=== PATIENT | female | born 1965 | race Caucasian/White ===

== ENCOUNTER 2017-12-26 14:22 | Outpatient (CLI) | payer OTHER, SELFPAY ==
[2017-12-26 15:03] LABS: Abs Immature Grans 0.02 k/cumm (0.0-0.09); Absolute Basophil Count 0.02 k/cumm (0.0-0.2); Absolute Eosinophil Count 0.03 k/cumm (0.0-0.7); Absolute Lymphocyte Count 1.64 k/cumm (1.2-3.4); Absolute Monocyte Count 0.61 k/cumm (0.11-0.7); Absolute Neutrophil Count 5.55 k/cumm (1.2-6.7); Basophils % 0.3; Eosinophils % 0.4; HCT 38.3 % (36.0-46.0); HGB 12.8 g/dL (12.0-15.5); Immature Grans % 0.3; Lymphocytes % 20.8; Mean Corp. HGB Concentration 33.4 g/dL (32.0-36.0); Mean Corpuscular Hemoglobin 30.4 pg (27.0-33.0); Mean Platelet Volume 9.9 fL (8.0-11.0); Monocytes % 7.8; Neutrophils % 70.4; Platelet Count 260 x1000/uL (130-400); RBC 4.21 m/cumm (4.00-5.20); White Blood Cell Count 7.87 k/cumm (4.4-10.8)
[2017-12-26 16:01] LABS: Anion Gap 10.7 mmol/L (3-11); BUN 24 mg/dL (7-18); CO2 24.3 mmol/L (21.0-32.0); CREATININE 1.16 mg/dL (0.55-1.02); Chloride 105 mmol/L (98-107); Estimated GFR 49.25 (mL/min/1.73m2); FREE T4 0.89 ng/dL (0.76-1.46); Glucose 99 mg/dL (70-100); Magnesium 2.3 mg/dL (1.8-2.4); PHOSPHORUS 3.5 mg/dL (2.6-4.7); Potassium 4.3 mmol/L (3.5-5.1); Sodium 140 mmol/L (136-145); TSH 0.53 uIU/mL (0.358-3.74)
[2017-12-26 21:23] LABS: Osmolality, Urine 961 mos/kg (150-1150)
[2017-12-27 16:07] LABS: Adrenocorticotropic Hormone, P <5.0 pg/mL
[2017-12-28 14:33] LABS: Renin Activity, Plasma 4.6 ng/mL/h
== END 2017-12-26 14:42 ==
PROVIDERS: PCP Student in an Organized Health Care Education/Training Program; Visit Provider Internal Medicine Endocrinology, Diabetes & Metabolism
DX: I10 Essential (primary) hypertension (principal); E27.1 Primary adrenocortical insufficiency; E03.9 Hypothyroidism, unspecified
CPT/HCPCS: 36415; 80048; 83935; 82024; 83735; 84100; 84244; 84439; 84443; 85025

== ENCOUNTER 2018-01-28 10:53 | Outpatient (CLI) | payer OTHER, SELFPAY ==
--- NOTE | 2018-01-28 10:50 | DI.RAD_ITS ---
SYMPTOMS/DIAGNOSIS: LEFT FOOT PAIN LEFT FOOT: Three views. No priors. No acute fracture, dislocation, lytic or sclerotic lesion is seen. The joint spaces are well maintained. There is a tiny spur at the plantar surface of the calcaneus. The soft tissues are unremarkable. IMPRESSION: Small calcaneal spur.
== END 2018-01-28 11:13 ==
PROVIDERS: PCP Student in an Organized Health Care Education/Training Program; Visit Provider Physician Assistant
DX: M79.672 Pain in left foot (principal); M77.32 Calcaneal spur, left foot
CPT/HCPCS: 73630

== ENCOUNTER 2018-03-19 01:43 | Outpatient (CLI) | payer OTHER, SELFPAY ==
--- NOTE | 2018-03-19 14:15 | SATEXT_ITS ---
Assessment: Ms. Broussard presents for nutritional counseling for gluten intolerance. She also complains of bloating and constipation. She reports that her health care provider recommended increased fiber. She reports that she has been eating gluten free, however she also eats many chips and a fair amount of candy. She drinks up to 48 oz. daily of Mountain Dew. Nutritional Diagnosis: Altered gastrointestinal function Intervention: We reviewed gluten free nutrition therapy. We also reviewed guidelines for irritable bowel nutrition therapy and she came up with an action plan to reduce her Mountain Dew intake. Provided written materials regarding a well balanced eating plan for her with meal planning suggestions. Monitoring and Evaluation: Ms. Broussard will self monitor her progress and evaluate her nutrition care plan on going and adjust as needed. She requested that we follow up initially by email or phone to see where she is at in terms of progress. We will determine her future follow up needs at that time. Total time spent face to face: 40 minutes Thank you for the referral.
== END 2018-03-19 02:03 ==
PROVIDERS: PCP Student in an Organized Health Care Education/Training Program; Visit Provider Dietitian, Registered
DX: K90.41 Non-celiac gluten sensitivity (principal); K21.9 Gastro-esophageal reflux disease without esophagitis; Z71.3 Dietary counseling and surveillance
CPT/HCPCS: 97802

== ENCOUNTER 2018-03-26 08:01 | Outpatient (CLI) | payer OTHER, SELFPAY ==
[2018-03-26 08:34] LABS: Abs Immature Grans 0.01 k/cumm (0.0-0.09); Absolute Basophil Count 0.03 k/cumm (0.0-0.2); Absolute Eosinophil Count 0.12 k/cumm (0.0-0.7); Absolute Lymphocyte Count 2.15 k/cumm (1.2-3.4); Absolute Monocyte Count 0.75 k/cumm (0.11-0.7); Absolute Neutrophil Count 4.21 k/cumm (1.2-6.7); Basophils % 0.4; Eosinophils % 1.7; HCT 39.3 % (36.0-46.0); HGB 13.2 g/dL (12.0-15.5); Immature Grans % 0.1; Lymphocytes % 29.6; Mean Corp. HGB Concentration 33.6 g/dL (32.0-36.0); Mean Corpuscular Hemoglobin 30.6 pg (27.0-33.0); Mean Corpuscular Volume 91.2 fL (80-95); Mean Platelet Volume 9.5 fL (8.0-11.0); Monocytes % 10.3; Neutrophils % 57.9; Platelet Count 252 x1000/uL (130-400); RBC 4.31 m/cumm (4.00-5.20); White Blood Cell Count 7.27 k/cumm (4.4-10.8)
[2018-03-26 10:17] LABS: Anion Gap 10.9 mmol/L (3-11); BUN 19 mg/dL (7-18); CO2 25.1 mmol/L (21.0-32.0); CREATININE 1.05 mg/dL (0.55-1.02); Calcium 8.9 mg/dL (8.5-10.1); Chloride 106 mmol/L (98-107); Estimated GFR 55.25 (mL/min/1.73m2); FREE T4 0.98 ng/dL (0.76-1.46); Glucose 81 mg/dL (70-100); Magnesium 1.5 mg/dL (1.8-2.4); PHOSPHORUS 3.3 mg/dL (2.6-4.7); Potassium 3.8 mmol/L (3.5-5.1); Sodium 142 mmol/L (136-145)
[2018-03-26 21:54] LABS: Osmolality, Urine 727 mos/kg (150-1150)
[2018-03-27 16:23] LABS: Adrenocorticotropic Hormone, P <5.0 pg/mL
[2018-03-28 10:53] LABS: Renin Activity, Plasma 6.5 ng/mL/h
== END 2018-03-26 08:21 ==
PROVIDERS: PCP Student in an Organized Health Care Education/Training Program; Visit Provider Internal Medicine Endocrinology, Diabetes & Metabolism
DX: E27.1 Primary adrenocortical insufficiency (principal); E03.9 Hypothyroidism, unspecified
CPT/HCPCS: 36415; 80048; 83935; 82024; 83735; 84100; 84244; 84439; 84443; 85025

== ENCOUNTER 2018-03-31 15:28 | Outpatient (REF) | payer OTHER, SELFPAY | END 2018-03-31 15:48 | LOC: LBN 15:28 | PROVIDERS: PCP Student in an Organized Health Care Education/Training Program; Visit Provider Student in an Organized Health Care Education/Training Program | DX: N39.0 Urinary tract infection, site not specified (principal) | CPT/HCPCS: 87077; 87086; 87186 ==

== ENCOUNTER 2018-04-03 14:16 | Outpatient (CLI) | payer OTHER, SELFPAY ==
[2018-04-03 15:27] LABS: ESR 17 MM/HR (0-30)
[2018-04-03 15:49] LABS: ALT 29 U/L (12-78); AST 15 U/L (15-37); Albumin 3.8 g/dL (3.4-5.0); Alkaline Phosphatase 97 U/L (46-116); Bilirubin, Direct 0.06 mg/dL (0.00-0.20); Bilirubin, Total 0.2 mg/dL (0.2-1.0); Total Protein 7.1 g/dL (6.4-8.2)
== END 2018-04-03 14:36 ==
PROVIDERS: PCP Student in an Organized Health Care Education/Training Program; Visit Provider Internal Medicine Endocrinology, Diabetes & Metabolism
DX: R53.83 Other fatigue (principal)
CPT/HCPCS: 36415; 80076; 85652; 86140

== ENCOUNTER 2018-08-07 01:27 | Outpatient (CLI) | payer OTHER, SELFPAY ==
--- NOTE | 2018-08-07 15:14 | DI.DEXA_ITS ---
SYMPTOM/DIAGNOSIS: H/O STEROID THERAPY, Z92.241, ADDISONS DISEASE DEXA SCAN: The LAST image shows no evidence of compression fractures. The bone mineral density measurements correspond to a total T score of -0.2, in the normal range. This is not significantly changed from 2017. The bone mineral density measurements of the left hip correspond to a total T score of -0.6 and a femoral neck T score of -1.7. This is a mild but not statistically significant change from 2017. The bone mineral density measurements of the left forearm correspond to a T score of the distal third of 2.0, in the normal range, also not significantly changed. IMPRESSION: Stable normal bone mineral density of the lumbar spine and left forearm. Stable osteopenia of the left hip.
== END 2018-08-07 01:47 ==
PROVIDERS: PCP Student in an Organized Health Care Education/Training Program; Visit Provider Internal Medicine Rheumatology
DX: M85.88 Other specified disorders of bone density and structure, other site (principal); D51.0 Vitamin B12 deficiency anemia due to intrinsic factor deficiency; Z92.241 Personal history of systemic steroid therapy
CPT/HCPCS: 77080

== ENCOUNTER 2018-08-13 00:52 | Outpatient (CLI) | payer OTHER, SELFPAY ==
--- NOTE | 2018-08-13 15:36 | DI.MAMMO_ITS ---
SYMPTOM/DIAGNOSIS: SCREENING MAMMOGRAMS: Mammograms were interpreted according to the usual protocol including computer analysis with CAD system, tomosynthesis and C view imaging. The breast tissue is heterogeneously radiodense which somewhat lowers the sensitivity of the study. There is no dominant mass. There are no suspicious calcifications. When compared with previous images, again noted are the biopsy markers in the lateral portion of the left breast. SUMMARY: No evidence of malignancy, category 2. Yearly screening mammography is recommended. Breast density, Category C. MQSA ASSESSMENT OF FINDINGS: Negative with benign findings. Category 2. Patient will receive a letter notifying them of these results. Bi-RADS category C. The breasts are heterogeneously dense, which may obscure small masses.
== END 2018-08-13 01:12 ==
PROVIDERS: PCP Student in an Organized Health Care Education/Training Program; Visit Provider Student in an Organized Health Care Education/Training Program
DX: Z12.31 Encounter for screening mammogram for malignant neoplasm of breast (principal)
CPT/HCPCS: 77063; 77067

== ENCOUNTER 2018-08-23 09:16 | Outpatient (CLI) | payer OTHER, SELFPAY ==
[2018-08-23 10:37] LABS: ESR 18 MM/HR (0-30)
[2018-08-23 10:56] LABS: ALT 46 U/L (12-78); AST 27 U/L (15-37); Albumin 3.8 g/dL (3.4-5.0); Alkaline Phosphatase 86 U/L (46-116); Anion Gap 11.7 mmol/L (3-11); BUN 16 mg/dL (7-18); Bilirubin, Total 0.4 mg/dL (0.2-1.0); C-Reactive Protein 0.23 mg/dL (0.0-0.3); CO2 25.3 mmol/L (21.0-32.0); CREATININE 1.01 mg/dL (0.55-1.02); Calcium 9.1 mg/dL (8.5-10.1); Chloride 106 mmol/L (98-107); Estimated GFR 57.56 (mL/min/1.73m2); FREE T4 1.16 ng/dL (0.76-1.46); Glucose 92 mg/dL (70-100); PHOSPHORUS 3.2 mg/dL (2.6-4.7); Potassium 3.7 mmol/L (3.5-5.1); Sodium 143 mmol/L (136-145); TSH 1.78 uIU/mL (0.358-3.74); Total Protein 6.9 g/dL (6.4-8.2)
[2018-08-26 13:58] LABS: Adrenocorticotropic Hormone, P <5.0 pg/mL
[2018-08-27 12:41] LABS: Renin Activity, Plasma 6.6 ng/mL/h
== END 2018-08-23 09:36 ==
PROVIDERS: PCP Student in an Organized Health Care Education/Training Program; Visit Provider Internal Medicine Endocrinology, Diabetes & Metabolism
DX: E27.1 Primary adrenocortical insufficiency (principal); R53.83 Other fatigue
CPT/HCPCS: 36415; 80048; 80076; 85652; 82024; 83735; 84100; 84244; 84439; 84443; 86140

== ENCOUNTER 2018-12-01 00:40 | Outpatient (CLI) | payer OTHER, SELFPAY ==
--- NOTE | 2018-12-01 13:41 | DI.RAD_ITS ---
SYMPTOMS/DIAGNOSIS: LEFT KNEE PAIN, M25.562; RIGHT KNEE PAIN, M25.561 LEFT KNEE: The bony structures are normally mineralized, the joint spaces intact. No soft tissue abnormality is apparent. SUMMARY: The study is within normal limits. RIGHT KNEE: There may be minimal narrowing of the medial tibiofemoral joint space. The bony structures are normally mineralized. There is no evidence of a fracture, dislocation or joint effusion. SUMMARY: Mild DJD is evident.
--- NOTE | 2018-12-01 14:23 | DI.MRI_ITS ---
SYMPTOMS/DIAGNOSIS: PAIN IN BILATERAL HIPS, M25.551, M25.552, ON PREDNISONE SINCE 2015 DUE TO ADRENAL DISEASE, PAIN WORSE, CONCERN FOR AVASCULAR NECROSIS BILATERAL HIP MRI: T1 axial bilateral and T2 axial fat-sat bilateral, T1 coronal bilateral and T1 coronal STIR bilateral and T2 sagittal fat-sat right up and proton density coronal fat-sat right hip and T2 sagittal fat-sat left hip and proton density coronal fat-sat left hip pulse sequences were performed. RIGHT HIP: There is no definite labral tear. There is very mild chondromalacia and periarticular osteophyte formation about the hip joint. There is no significant effusion. The hip joint is normally aligned. The femoral head articular contour is maintained and the femoral head is of normal signal. Partially included sacroiliac joint appears patent as seen on the present study. Lumbar spondylosis is partially visualized. A tiny cystic region in the anterior superior margin of the joint could represent a paralabral cyst or degenerative subchondral cyst in the acetabulum. The muscles are unremarkable. The patient is status post hysterectomy. There is mild hamstring tendinopathy with a tiny partial tear at its insertion. The flexor tendons are unremarkable. The adductors are intact with no evidence of a tear. The rotators are well maintained with no tear. SUMMARY: Degenerative changes as described above including very mild degenerative changes at the hip. A tiny paralabral cyst versus degenerative subchondral cyst is noted in the acetabulum. If an acetabular labral tear is of clinical concern, an MR arthrogram could be obtained. Note is also made of mild hamstring tendinopathy with a partial tiny tear. LEFT HIP: There is no definite tear involving the acetabular labrum. There is very mild chondromalacia and periarticular osteophyte formation about the hip joint. There is no significant joint effusion. The hip joint is normally aligned. The femoral head articular contour is maintained and femoral head is of normal signal. The partially included SI joint appears unremarkable. Note is made of lumbar spondylosis, only partially visualized. A tiny cystic focus at the anterior superior margin of the joint could represent a paralabral cyst or degenerative subchondral cyst in the acetabulum. The muscles are unremarkable. There is mild asymmetric edema in the soft tissues adjacent to the greater trochanter, suggesting mild bursitis. The patient is status post hysterectomy. There is mild hamstring tendinopathy with a small partial tear at its insertion. The flexor tendons are unremarkable. The adductors are unremarkable with no evidence of a tear. The rotators are unremarkable. No tear is seen. SUMMARY: Degenerative changes as described above including very mild degenerative changes of the hip. There is a tiny paralabral cyst versus degenerative subchondral cyst in the acetabulum. If acetabular labral tear is of concern, then an MR arthrogram could be obtained. Note is also made of mild hamstring tendinopathy with a small partial tear. There is mild asymmetric trochanteric bursitis.
--- NOTE | 2018-12-01 15:12 | DI.VRAD_ITS ---
EXAM: MR Right Lower Extremity Without Contrast. Hip EXAM DATE/TIME: 12/01/2018 2:28 PM CLINICAL HISTORY: 53 years old, female; Bilateral; Patient HX: Pain bilat. Hips, pain worse, concern for avn. ; Additional info: Patient on prednisone since 2015 due to adrenal disease. Patient had bilateral hips done. TECHNIQUE: Imaging protocol: MR of the Right lower extremity without intravenous contrast. Exam focused on the hip. COMPARISON: None provided. FINDINGS: Labrum: No definite tear of the acetabular labrum is evident. Cartilage: There is very mild chondromalacia and periarticular osteophyte formation about the hip joint. Fluid: There is no significant joint effusion. Bones/joints: The hip joint is normally aligned. The femoral head articular contour is maintained, and the femoral head is normal in signal. The partially included sacroiliac joint appears patent as seen. Lumbar lumbar spondylosis is partially visualized. A tiny cystic focus at the anterior superior margin of the joint could represent a paralabral cyst or degenerative subchondral cyst in the acetabulum (images 7:4, 6:16, 3:11). Muscles: Unremarkable. Reproductive: There has been hysterectomy. TENDONS: Extensors: There is mild hamstrings tendinopathy with a tiny partial tear at its insertion. Flexors: Unremarkable. No tear. Abductors: Unremarkable. No tear. Adductors: Unremarkable. No tear. Rotators: Unremarkable. No tear. IMPRESSION: 1. Degenerative changes as described, including very mild degenerative changes of the hip. 2. Tiny paralabral cyst versus degenerative subchondral cyst in the acetabulum. If acetabular labral tear is of clinical concern, consider MR arthrogram. 3. Mild hamstrings tendinopathy with a tiny partial tear. EXAM: MR Left Lower Extremity Without Contrast. Hip EXAM DATE/TIME: 12/01/2018 2:28 PM CLINICAL HISTORY: 53 years old, female; Bilateral; Patient HX: Pain bilat. Hips, pain worse, concern for avn. ; Additional info: Patient on prednisone since 2015 due to adrenal disease. Patient had bilateral hips done. TECHNIQUE: Imaging protocol: MR of the Left lower extremity without intravenous contrast. Exam focused on the hip. COMPARISON: None provided. FINDINGS: Labrum: No definite tear of the acetabular labrum is evident. Cartilage: There is very mild chondromalacia and periarticular osteophyte formation about the hip joint. Fluid: There is no significant joint effusion. Bones/joints: The hip joint is normally aligned. The femoral head articular contour is maintained, and the femoral head is normal in signal. The partially included sacroiliac joint appears patent as seen. Lumbar lumbar spondylosis is partially visualized. A tiny cystic focus at the anterior superior margin of the joint could represent a paralabral cyst or degenerative subchondral cyst in the acetabulum (images 9:9, 8:14, 3:11). Muscles: Unremarkable. Soft tissues: There is mild asymmetric edema in the soft tissues adjacent to the greater trochanter, suggesting mild bursitis. Reproductive: There has been hysterectomy. TENDONS: Extensors: There is mild hamstrings tendinopathy with a small partial tear at its insertion. Flexors: Unremarkable. No tear. Abductors: Unremarkable. No tear. Adductors: Unremarkable. No tear. Rotators: Unremarkable. No tear. IMPRESSION: 1. Degenerative changes as described, including very mild degenerative changes of the hip. 2. Tiny paralabral cyst versus degenerative subchondral cyst in the acetabulum. If acetabular labral tear is of clinical concern, consider MR arthrogram. 3. Mild hamstrings tendinopathy with a small partial tear. 4. Mild asymmetric trochanteric bursitis. Dictated and Authenticated by: Jamison Dennis MD. Ordering:MADELINE Lloyd MD
== END 2018-12-01 01:00 ==
PROVIDERS: PCP Student in an Organized Health Care Education/Training Program; Visit Provider Internal Medicine Rheumatology
DX: M25.551 Pain in right hip (principal); M25.552 Pain in left hip; M16.0 Bilateral primary osteoarthritis of hip; M76.891 Other specified enthesopathies of right lower limb, excluding foot; M70.62 Trochanteric bursitis, left hip; Z79.52 Long term (current) use of systemic steroids
CPT/HCPCS: 73562; 73721

== ENCOUNTER 2019-02-18 14:28 | Outpatient (CLI) | payer OTHER, SELFPAY ==
--- NOTE | 2019-02-18 14:48 | DI.RAD_ITS ---
EXAM: XR HIP AND PELVIS ADULT BL INDICATION: hip pain. COMPARISON: No exams were available for comparison TECHNIQUE: 2D digital imaging was performed. FINDINGS: Hip joint spaces are well maintained. There is no significant periarticular spurring. No soft tissu e calcifications are seen. IMPRESSION: Negative pelvis and bilateral hips.
== END 2019-02-18 14:48 ==
PROVIDERS: PCP Student in an Organized Health Care Education/Training Program; Visit Provider Student in an Organized Health Care Education/Training Program
DX: M25.551 Pain in right hip (principal); M25.552 Pain in left hip
CPT/HCPCS: 73521

== ENCOUNTER 2019-02-18 14:59 | Outpatient (CLI) | payer OTHER, SELFPAY ==
[2019-02-18 15:24] LABS: Abs Immature Grans 0.02 k/cumm (0.0-0.09); Absolute Basophil Count 0.02 k/cumm (0.0-0.2); Absolute Eosinophil Count 0.06 k/cumm (0.0-0.7); Absolute Lymphocyte Count 1.61 k/cumm (1.2-3.4); Absolute Neutrophil Count 5.08 k/cumm (1.2-6.7); Basophils % 0.3; Eosinophils % 0.8; HCT 39.5 % (36.0-46.0); HGB 12.9 g/dL (12.0-15.5); Immature Grans % 0.3; Lymphocytes % 21.8; Mean Corp. HGB Concentration 32.7 g/dL (32.0-36.0); Mean Corpuscular Volume 91.9 fL (80-95); Mean Platelet Volume 9.4 fL (8.0-11.0); Monocytes % 8.1; Neutrophils % 68.7; Platelet Count 322 x1000/uL (130-400); RBC Distribution Width 13.1 % (11.7-14.6); White Blood Cell Count 7.39 k/cumm (4.4-10.8)
[2019-02-18 16:09] LABS: ESR 14 mm/hr (0-30)
[2019-02-18 16:17] LABS: C-Reactive Protein 0.19 mg/dL (0.0-0.3)
[2019-02-20 10:21] LABS: Cyclic Citrullinated Peptide <2.5 U/mL (<5.0)
[2019-02-20 13:57] LABS: Lyme Ab w Rflx to Lyme Confirm Negative (Negative)
[2019-02-20 14:54] LABS: ANA Interpretation Negative (Negative)
== END 2019-02-18 15:19 ==
PROVIDERS: PCP Student in an Organized Health Care Education/Training Program; Visit Provider Student in an Organized Health Care Education/Training Program
DX: E27.1 Primary adrenocortical insufficiency (principal); E03.9 Hypothyroidism, unspecified; M25.551 Pain in right hip; M25.552 Pain in left hip
CPT/HCPCS: 36415; 85652; 86200; 85025; 86038; 86140; 86431; 86618

== ENCOUNTER 2019-03-07 09:09 | Outpatient (CLI) | payer OTHER, SELFPAY ==
[2019-03-07 10:44] LABS: Anion Gap 10.6 mmol/L (3-11); BUN 19 mg/dL (7-18); CO2 25.4 mmol/L (21.0-32.0); CREATININE 0.96 mg/dL (0.55-1.02); Chloride 106 mmol/L (98-107); FREE T4 0.99 ng/dL (0.76-1.46); Glucose 122 mg/dL (74-106); Magnesium 1.8 mg/dL (1.8-2.4); PHOSPHORUS 3.9 mg/dL (2.6-4.7); Potassium 3.8 mmol/L (3.5-5.1); Sodium 142 mmol/L (136-145); TSH 0.23 uIU/mL (0.36-3.74)
[2019-03-09 14:24] LABS: Adrenocorticotropic Hormone, P <5.0 pg/mL
[2019-03-10 11:50] LABS: Renin Activity, Plasma 4.5 ng/mL/h
== END 2019-03-07 09:29 ==
PROVIDERS: PCP Student in an Organized Health Care Education/Training Program; Visit Provider Internal Medicine Endocrinology, Diabetes & Metabolism
DX: E27.1 Primary adrenocortical insufficiency (principal); E03.9 Hypothyroidism, unspecified
CPT/HCPCS: 36415; 80048; 82024; 83735; 84100; 84244; 84439; 84443

== ENCOUNTER 2019-08-12 07:55 | Outpatient (CLI) | payer OTHER, SELFPAY ==
--- NOTE | 2019-08-12 15:15 | DI.RAD_ITS ---
EXAM: XR TIB/FIB LT CLINICAL HISTORY: r/o Fx. TECHNIQUE: 2D digital imaging was performed COMPARISON: No exams were available for comparison FINDINGS: BONES: No acute fracture is present. No bony destructive lesion is seen. Visualized portion of knee a nd ankle joints are unremarkable. SOFT TISSUE: Mild lateral soft tissue swelling. IMPRESSION: Unremarkable radiographs of the left tibia and fibula. DATA REPOSITORY: RADIATION DOSE DELIVERED:
== END 2019-08-12 08:15 ==
PROVIDERS: PCP Student in an Organized Health Care Education/Training Program; Visit Provider Student in an Organized Health Care Education/Training Program
DX: M79.662 Pain in left lower leg (principal); S89.92XA Unspecified injury of left lower leg, initial encounter; M79.89 Other specified soft tissue disorders
CPT/HCPCS: 73590

== ENCOUNTER 2019-08-26 08:36 | Day surgery (SDC) | payer OTHER, SELFPAY ==
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
--- NOTE | 2019-08-26 06:34 | W.PM.DSUDISC ---
Discharge Plan Disposition Patient Disposition: HOME Condition: Stable Discharge Details Reason For Visit: LLE hematoma Attending Provider: Stefany Loving Primary Care Provider: Mercedes Espinoza Home Meds and New Rx's Prescriptions: New (DME) Kerlix 4 1/2 X 147 bandage See Rx Instructions .ROUTE .MEDSUPPLY Qty: 4 RF: 0 Continued cetirizine [Zyrtec] 10 mg tablet 10 mg PO DAILY Qty: 90 RF: 3 escitalopram oxalate 10 mg tablet 10 mg PO DAILY Qty: 90 RF: 0 fluticasone propionate 50 mcg/actuation spray,suspension 2 spray REGINE BID Qty: 16 RF: 0 fludrocortisone 0.1 mg tablet 0.1 mg PO DAILY RF: 0 magnesium oxide 400 mg capsule 400 mg PO DAILY RF: 0 gabapentin 100 mg capsule 200 mg PO BID Qty: 360 RF: 1 multivitamin 1 EACH tablet 1 tab PO DAILY RF: 0 cholecalciferol (vitamin D3) [Vitamin D3] 1,000 UNIT capsule 1,000 unit PO DAILY RF: 0 Solu-Cortef Act-O-Vial (PF) 100 MG/2 ML recon soln 100 mg IJ PRN RF: 0 prednisone 5 mg tablet 6 mg PO DIRECTED RF: 0 pantoprazole 20 mg tablet,delayed release (DR/EC) 20 mg PO DAILY Qty: 90 RF: 3 albuterol sulfate [ProAir HFA] 90 mcg/actuation HFA aerosol inhaler 2 puff Inhalation Q4H PRN Qty: 3 RF: 3 fluticasone propion-salmeterol [Advair Diskus] 500-50 mcg/dose blister with device 1 inh Inhalation BID Qty: 3 RF: 3 levothyroxine 75 mcg/mL solution 75 mcg PO DAILY RF: 0 cyanocobalamin (vitamin B-12) [Vitamin B-12] 1,000 mcg tablet extended release 1,000 mcg PO DAILY RF: 0 Discharge Instructions Additional Instructions: Activity at Home after surgery: 1. Make sure you walk outside at least 4 times per day 2. You should be able to climb a flight of stairs 3. No driving while in pain or taking pain medications 4. No strenuous activity or heavy lifting for 2 weeks Diet, Nutrition, & wound healin. Avoid alcohol until after you are recovered from your surgery 2. Make sure to eat plenty of lean protein (meat, fish, eggs, cottage cheese, beans) 3. Eat a variety of fruits and vegetables. Eat plenty of high fiber foods to avoid constipation. 4. Drink plenty of liquids to stay hydrated and avoid constipation Pain Medications: 1. Alternate Tylenol 650 mg and Ibuprofen 600 mg every 3 hours 2. If a narcotic has been prescribed take as directed only for breakthrough pain For Constipation: 1. Take Milk of Magnesia or MiraLax as needed for constipation Other: 1. You may shower daily. Do not scrub the incisions 2. Do not soak the incisions for 1 week 3. You may alternate ice and heat as needed for pain and swelling Wound Care: 1. Keep the incisions clean and dry 2. Daily dressing changes. Remove dressing prior to your shower. Shower and pat dry. Apply ABD dressing and Kerlix. Secure with CHERYL wrap. Please call our office if you develop: 1. Fevers >101.5 2. Nausea or Vomiting 3. Worsening pain 4. Redness and thick discharge from the wounds If after hours please call the Hospital at and ask to speak to the on-call surgeon Referrals: Stefany Loving MD [ [facility]FF [facility]YSICIAN] - 09/01/19 Activity:: Activity as Tolerated Remove Dressings/Wound Care:: 24 hours Shower/Bathe:: 24 hours Diet:: As Tolerated Discharge Orders Discharge Orders: Discharge Order (Routine); Ordered 08/26/19 Ordered By: Stefany Loving
[2019-08-26] MEDS: Lactated Ringers 1,000 ML 80 ML IV (09:15)
[2019-08-26] MEDS: ceFAZolin 2 GM/50 ML BAG IVPB (10:18)
[2019-08-26] MEDS: Lidocaine 1% Multi-Dose 50 ML VIAL (10:34)
== END 2019-08-26 11:34 | disposition home or self-care (01) ==
PROVIDERS: PCP Student in an Organized Health Care Education/Training Program; Visit Provider Surgery
PROC: (CPT 27603; principal; 2019-08-26 09:30)
DX: S80.12XA Contusion of left lower leg, initial encounter (principal); V86.99XA Unspecified occupant of other special all-terrain or other off-road motor vehicle injured in nontraffic accident, initial encounter; Z98.890 Other specified postprocedural states
CPT/HCPCS: 27603; J0690

== ENCOUNTER 2019-09-07 01:27 | Outpatient (CLI) | payer OTHER, SELFPAY ==
[2019-09-07 10:59] LABS: Anion Gap 7.9 mmol/L (3-11); BUN 12 mg/dL (7-18); CO2 29.1 mmol/L (21.0-32.0); CREATININE 0.99 mg/dL (0.55-1.02); Calcium 9.6 mg/dL (8.5-10.1); Chloride 104 mmol/L (98-107); Estimated GFR 58.67 (mL/min/1.73m2); FREE T4 1.21 ng/dL (0.76-1.46); Glucose 112 mg/dL (74-106); Potassium 3.9 mmol/L (3.5-5.1); Sodium 141 mmol/L (136-145); TSH 1.94 uIU/mL (0.36-3.74)
[2019-09-08 17:43] LABS: Adrenocorticotropic Hormone, P <5.0 pg/mL
[2019-09-10 17:50] LABS: Renin Activity, Plasma 4.2 ng/mL/h
== END 2019-09-07 01:47 ==
PROVIDERS: PCP Student in an Organized Health Care Education/Training Program; Visit Provider Internal Medicine Endocrinology, Diabetes & Metabolism
DX: E27.1 Primary adrenocortical insufficiency (principal); E03.9 Hypothyroidism, unspecified
CPT/HCPCS: 36415; 80048; 82024; 83735; 84100; 84244; 84439; 84443

== ENCOUNTER 2019-10-27 01:31 | Outpatient (CLI) | payer OTHER, SELFPAY ==
--- NOTE | 2019-10-27 | DI.DEXA_ITS ---
EXAM: XR DEXA BONE DENSITY W/WO LAST CLINICAL HISTORY: CUSTODIAL USE OF STEROID,Z79.52 TECHNIQUE: COMPARISON: 08/07/2018. FINDINGS: Lateral Spine Image: Unremarkable. No compression deformities identified. Left hip: Total T-Score: -0.9. Compared with -0.6. Total Z-Score: -0.3 T- and Z-scores: Within normal limits. Lumbar Spine: Total T-Score: -0.5. Compared with -0.2. Total Z-Score: 0.4. T- and Z-scores: Within normal limits. IMPRESSION: No evidence of osteoporosis.
== END 2019-10-27 01:51 ==
PROVIDERS: PCP Student in an Organized Health Care Education/Training Program; Visit Provider Internal Medicine Endocrinology, Diabetes & Metabolism
DX: Z79.52 Long term (current) use of systemic steroids (principal)
CPT/HCPCS: 77080

== ENCOUNTER 2020-03-16 15:52 | Outpatient (REF) | payer OTHER, SELFPAY | END 2020-03-16 16:12 | LOC: LBO 15:52 | PROVIDERS: PCP Student in an Organized Health Care Education/Training Program; Visit Provider Internal Medicine | DX: R30.0 Dysuria (principal) | CPT/HCPCS: 87077; 87086; 87186 ==

== ENCOUNTER 2020-03-23 04:22 | Outpatient (CLI) | payer OTHER, SELFPAY ==
[2020-03-23 09:05] LABS: Anion Gap 9.3 mmol/L (3-11); BUN 18 mg/dL (7-18); CO2 28.7 mmol/L (21.0-32.0); CREATININE 1.17 mg/dL (0.55-1.02); Calcium 8.9 mg/dL (8.5-10.1); Chloride 102 mmol/L (98-107); Estimated GFR 48.39 (mL/min/1.73m2); FREE T4 0.92 ng/dL (0.76-1.46); Glucose 93 mg/dL (74-106); Magnesium 1.8 mg/dL (1.8-2.4); Sodium 140 mmol/L (136-145); TSH 2.03 uIU/mL (0.36-3.74)
[2020-03-25 12:32] LABS: Adrenocorticotropic Hormone, P <5.0 pg/mL
[2020-03-27 11:35] LABS: Renin Activity, Plasma 7.1 ng/mL/h
== END 2020-03-23 04:42 ==
PROVIDERS: PCP Student in an Organized Health Care Education/Training Program; Visit Provider Internal Medicine Endocrinology, Diabetes & Metabolism
DX: E03.9 Hypothyroidism, unspecified (principal); E27.1 Primary adrenocortical insufficiency
CPT/HCPCS: 36415; 80048; 82024; 83735; 84100; 84244; 84439; 84443

== ENCOUNTER 2020-09-06 12:10 | Outpatient (CLI) | payer OTHER, SELFPAY ==
--- NOTE | 2020-09-06 15:45 | DI.RAD_ITS ---
Exam(s) XR HAND LT COMPLETE EXAM: XR HAND LT COMPLETE CLINICAL HISTORY: possible bone spur? r/o bony pathology. m79.642. TECHNIQUE: 2D digital imaging was performed. COMPARISON: No exams were available for comparison FINDINGS: Is no evidence of acute fracture or dislocation. No radiopaque foreign body. No osseous lesions. N o erosions. Bone density appears age appropriate. IMPRESSION: DATA REPOSITORY: RADIATION DOSE DELIVERED:
== END 2020-09-06 12:30 ==
PROVIDERS: PCP Student in an Organized Health Care Education/Training Program; Visit Provider Student in an Organized Health Care Education/Training Program
DX: S66.511A Strain of intrinsic muscle, fascia and tendon of left index finger at wrist and hand level, initial encounter (principal); X58.XXXA Exposure to other specified factors, initial encounter
CPT/HCPCS: 73130

== ENCOUNTER 2020-09-16 01:40 | Outpatient (CLI) | payer OTHER, SELFPAY ==
[2020-09-16 09:13] LABS: Anion Gap 11.3 mmol/L (3-11); BUN 16 mg/dL (7-18); CO2 27.7 mmol/L (21.0-32.0); CREATININE 1.1 mg/dL (0.55-1.02); Calcium 9.4 mg/dL (8.5-10.1); Chloride 105 mmol/L (98-107); Estimated GFR 51.76 (mL/min/1.73m2); Glucose 83 mg/dL (74-106); Magnesium 1.9 mg/dL (1.8-2.4); PHOSPHORUS 4.5 mg/dL (2.6-4.7); Potassium 4.7 mmol/L (3.5-5.1); Sodium 144 mmol/L (136-145); TSH 5.46 uIU/mL (0.36-3.74)
[2020-09-17 13:03] LABS: Adrenocorticotropic Hormone, P 17 pg/mL
== END 2020-09-16 01:41 | disposition home or self-care (01) ==
LOC: LBO 01:40
PROVIDERS: PCP Student in an Organized Health Care Education/Training Program; Visit Provider Internal Medicine Endocrinology, Diabetes & Metabolism
DX: E27.1 Primary adrenocortical insufficiency (principal); E03.9 Hypothyroidism, unspecified; R93.7 Abnormal findings on diagnostic imaging of other parts of musculoskeletal system
CPT/HCPCS: 36415; 80048; 80400; 82024; 83735; 84100; 84244; 84439; 84443

== ENCOUNTER 2020-09-29 01:31 | Outpatient (CLI) | payer OTHER, SELFPAY ==
--- NOTE | 2020-09-29 09:30 | DI.MAMMO_ITS ---
Exam(s) MAMMO SCREENING EXAM: MAMMO SCREENING CLINICAL HISTORY: screening,Z12.39. TECHNIQUE: Bilateral full field digital CC and MLO mammographic images were obtained with 3D tomosyn thesis and utilizing computer aided detection (CAD). COMPARISON: Prior mammograms dating back to 2010, the most recent being July 2018. FINDINGS: There are no CAD designations There are no new spiculated masses nor malignant appearing microcalcification groups. Two biopsy marker devices in left breast are again noted, the more anterior of the 2 again noted be w ithin a slightly lobulated nodule, unchanged from prior studies. Benign lymph node in the upper-oute r quadrant left breast is unchanged. Small nodule anteriorly in the right breast is unchanged from p rior studies. No malignant-appearing microcalcification groups in either breast. There is no significant architectural distortion nor skin thickening-retraction. IMPRESSION: Stable benign findings. No radiographic evidence of malignancy. BI-RADS Category 2 - Benign Findings Breast Density - Category C - Heterogeneously dense Breast density Category C or D implies that the patient has dense breast tissue. Dense breast tissue can make it harder to find cancer on a mammogram. Dense breast tissue is also associated with an incr eased risk of breast cancer. This information about the result of the mammogram report was provided to the patient to raise their awareness. Use this report when you speak with the patient about their risks for breast cancer, which includes their family history. At that time, you may recommend additional screening tests (Ultrasoun d or MRI) as these tests may add significant information. A negative radiographic report should not delay biopsy if a dominant or clinically suspicious mass is present. Up to ten percent of cancers are not identified on mammography. A negative report may reinforce clinical impression. Adenosis and dense breasts may obscure an underlying neoplasm. False positive reports average 6 to 10%. Patient will receive a letter notifying them of these results.
== END 2020-09-29 01:51 ==
PROVIDERS: PCP Student in an Organized Health Care Education/Training Program; Visit Provider Student in an Organized Health Care Education/Training Program
DX: Z12.31 Encounter for screening mammogram for malignant neoplasm of breast (principal)
CPT/HCPCS: 77063; 77067

== ENCOUNTER 2020-10-18 12:16 | Inpatient (IN) | payer OTHER, SELFPAY ==
[2020-10-18 12:33] VITALS: BP 129/69; PULSE 84; RESP 16; TEMP 36.8; O2SAT 96
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
[2020-10-18 13:14] LABS: Bilirubin Negative (Negative); Blood Negative (Negative); Clarity Clear (Clear); Glucose Negative (Negative); Ketones Negative (Negative); Leukocyte Esterase Negative (Negative); Nitrite Negative (Negative); Specific Gravity 1.025 (1.005-1.025); Urobilinogen 0.2 EU/dL (Up TO 0.2); pH 5.5 (5-8)
[2020-10-18 13:20] LABS: Abs Immature Grans 0.03 10^3/uL (0.0-0.06); Absolute Basophil Count 0.02 10^3/uL (0.0-0.2); Absolute Lymphocyte Count 1.37 10^3/uL (1.2-3.4); Absolute Monocyte Count 0.39 10^3/uL (0.1-0.8); Absolute Neutrophil Count 7.28 10^3/uL (1.2-6.7); Basophils % 0.2; HGB 13.4 g/dL (11.2-15.7); Immature Grans % 0.3; Lymphocytes % 15.1; MCH 29.8 pg (27.0-33.0); MCHC 32.7 % (32.0-36.0); MCV 91.3 fL (80-95); MPV 9.2 fL (8.0-11.0); Monocytes % 4.3; Neutrophils % 80.1; Nucleated RBC 0 %; Platelet Count 324 10^3/uL (130-400); RBC 4.49 10^6/uL (3.93-5.22); RDW 12.4 % (11.7-14.6); RDW-SD 41.1 fL; WBC 9.09 10^3/uL (4.4-10.8)
[2020-10-18 13:35] LABS: ALT 33 U/L (14-59); AST 23 U/L (15-37); Alkaline Phosphatase 96 U/L (46-116); Anion Gap 10.1 mmol/L (3-11); BUN 18 mg/dL (7-18); Bilirubin, Total 0.3 mg/dL (0.2-1.0); CO2 23.9 mmol/L (21.0-32.0); Calcium 9.1 mg/dL (8.5-10.1); Chloride 104 mmol/L (98-107); Estimated GFR 57.78 (mL/min/1.73m2); Glucose 106 mg/dL (74-106); Magnesium 2.2 mg/dL (1.8-2.4); Potassium 4.6 mmol/L (3.5-5.1); Sodium 138 mmol/L (136-145)
[2020-10-18 13:45] LABS: TSH (W/Ref FT4) 0.19 uIU/mL (0.36-3.74)
--- NOTE | 2020-10-18 13:54 | NUR.NOTE ---
Nursing Note: Endocrinology [place], [place]; Dr. Cantrell [phone].
[2020-10-18 14:06] LABS: FREE T4 1.03 ng/dL (0.76-1.46)
[2020-10-18] MEDS: Hydrocortisone SOD SUC. 100 MG VIAL IVP ×2 (14:18→19:47)
--- NOTE | 2020-10-18 15:00 | RT.EKG_ITS ---
APPROVED REPORT Exam: Resting ECG Reason for Exam: consider QT prolonged Patient Location: E HR:64 bpm ECG Measurements Heart Rate 64 AXIS TN 162 P 72 QRSd 94 QRS 72 QT 418 T 28 QTc 431 Conclusion Sinus rhythm...normal P axis, V-rate 60- 99 Probable left atrial enlargement...P >50mS, <-0.10mV V1
[2020-10-18] MEDS: Ondansetron 4 MG/2 ML VIAL IVP ×2 (15:19→22:28)
[2020-10-18 15:57] LABS: Source Nasal/Nares
[2020-10-18 16:08] VITALS: BP 142/78; PULSE 68; RESP 18; TEMP 36.4; O2SAT 97
[2020-10-18 16:22] VITALS: BP 138/70; PULSE 63; RESP 17; TEMP 36.3; O2SAT 99
[2020-10-18 18:04] LABS: COVID-19 PCR Negative (Negative)
[2020-10-18] MEDS: Budesonide/Formoterol 160/4.5 6 GM 60 PUFF INH IH (19:46)
[2020-10-18] MEDS: busPIRone 15 MG TAB PO (19:47)
[2020-10-18] MEDS: Gabapentin 100 MG CAP 200 MG PO (19:47)
[2020-10-18] MEDS: Normal Saline Flush 10 ML SYR IVP ×2 (19:48→22:29)
[2020-10-18 19:58] VITALS: BP 123/82; PULSE 63; RESP 16; TEMP 36.5; O2SAT 97
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
[2020-10-18 23:30] VITALS: BP 102/59; PULSE 60; RESP 18; TEMP 36; O2SAT 96
[2020-10-19] MEDS: Hydrocortisone SOD SUC. 100 MG VIAL IVP ×3 (01:33→14:20)
[2020-10-19] MEDS: Normal Saline Flush 10 ML SYR IVP ×2 (01:34→08:13)
[2020-10-19 04:09] VITALS: BP 102/59; PULSE 64; RESP 16; TEMP 36.5; O2SAT 97
[2020-10-19] MEDS: Omeprazole 20 MG CAPCR PO (06:49)
[2020-10-19] MEDS: Levothyroxine 88 MCG TAB PO (06:49)
[2020-10-19 07:14] LABS: Anion Gap 9.6 mmol/L (3-11); BUN 15 mg/dL (7-18); CO2 26.4 mmol/L (21.0-32.0); Calcium 9.4 mg/dL (8.5-10.1); Chloride 105 mmol/L (98-107); Estimated GFR 57.78 (mL/min/1.73m2); Glucose 111 mg/dL (74-106); Potassium 3.9 mmol/L (3.5-5.1); Sodium 141 mmol/L (136-145)
[2020-10-19 07:52] VITALS: BP 112/70; PULSE 70; RESP 14; TEMP 36.4; O2SAT 100
[2020-10-19] MEDS: Cetirizine 10 MG TAB PO (08:12)
[2020-10-19] MEDS: Fludrocortisone 0.1 MG TAB PO (08:12)
[2020-10-19] MEDS: Magnesium Oxide 400 MG TAB PO (08:12)
[2020-10-19] MEDS: busPIRone 15 MG TAB PO (08:13)
[2020-10-19] MEDS: Gabapentin 100 MG CAP 200 MG PO (08:13)
--- NOTE | 2020-10-19 10:19 | INITIAL_ITS ---
- If Service Date Differs Date of service: 10/19/20 Time of Service: 10:19 Care Management Initial Assess REASON FOR HOSPITALIZATION:: Faustina's Disease PAST MEDICAL HISTORY/PAST SURGICAL HISTORY:: Abdominal bloating. 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 09/22/19 F/U with Zion Manrique, f/u 6m. Asthma (06/09/12). B12 deficiency (09/22/13). Bilateral knee pain. Contusion. Swollen, tender, still hard @ landing location ... Depression (05/10/16). Depressive disorder (02/15/00). Endometriosis. Gastroesophageal reflux disease without esophagitis (12/14/14). Hip pain, bilateral. Seen by Rheum who ordered MRI (NEG for necrosis). Cystic findings and Hamstring inflamm/tear warrants review by PT/Ortho for etiology and possible non-invasive Tx plan. Hot flashes. Drenched, fatigued .. Hx menopause with hot flashes years ago. Unclear etiology (stress? faustina's dz?). Hypothyroidism. Goal set by [facility] for TSH to target at 1.52. [address] Dr. Mejia, now Dr. Cantrell [facility]. Hypothyroidism (acquired). Immunocompromised due to corticosteroids. Stayed out of work to minimize COVID19 exposure with FMLA support. Returning 09/15/19. Left foot pain. 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 Left leg injury. Hematoma per surgery evaluation. Hematoma I&D by surgery 08/26/19. Low back pain. Neuralgia and neuritis, unspecified. 02/03/18 Dr Apodaca. Marcaine injection. Neuropathy of left sural nerve. Osteopenia (~2016). repeat Dexa 07/28/18. Primary hypoadrenalism. RLS (restless legs syndrome) (05/10/16). Seasonal allergies (09/22/13). Strain of left index finger. Tremor. Trochanteric bursitis of both hips. Unspecified nontoxic nodular goiter. Vertigo. Biopsy of breast. LEFT. Endometrial Biopsy (05/19/10). History of bilateral ligation of fallopian tubes. SALPINGECTOMY; B/L with removal of the hydrosalpinx (08/24/15). Status post incision and drainage (~08/26/19). Left LE hematoma. Status post vaginal hysterectomy PREVIOUS FUNCTIONAL STATUS/SOCIAL/FAMILY SUPPORTS:: Ghada resides in [place] with her , Gerardo. She is independent at baseline, and fully employed at [employer]. 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 CURRENT FUNCTIONAL STATUS:: Ghada was sitting up in her bed, her at her bedside when CM met with her. She was pleasant in interaction and reported feeling much better. ADVANCE DIRECTIVES:: None on file at [facility]. Has patient been provided with info about the portal/API?: Yes Did the patient sign up for the portal?: Yes CODE STATUS:: Full Code INSURANCE COVERAGE / FINANCIAL ISSUES:: [facility] CURRENT HOME/COMMUNITY SERVICES/EQUIPMENT:: None currently. PRIMARY CARE PHYSICIAN:: Mercedes Akbar POTENTIAL DISCHARGE NEEDS:: Follow up appointment with PCP. PATIENT/FAMILY EDUCATION NEEDS:: Review discharge instructions, discuss Ask Me Three. ANTICIPATED BARRIERS TO DISCHARGE:: None identified. TRANSPORTATION:: Via private vehicle with her , Gerardo. PLAN:: Ghada continues to be closely monitored and treated. CM continues to follow. Anticipate she will return home when ready per MD, follow up with her PCP and plan of care as prescribed. She will transport via private vehicle her , Gerardo.
[2020-10-19] MEDS: Budesonide/Formoterol 160/4.5 6 GM 60 PUFF INH IH (10:34)
[2020-10-19 11:38] VITALS: BP 117/76; PULSE 70; RESP 17; TEMP 36.1; O2SAT 98
--- NOTE | 2020-10-19 15:09 | CHAPLAIN ---
Ghada was sitting up in bed when I visited. I introduced myself and explained my role. Ghada was pleasant but did not seem interested in further conversation.
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
[2020-10-19] MEDS: predniSONE 20 MG TAB PO (17:24)
== END 2020-10-19 17:59 | disposition home or self-care (01) | DRG 644 ==
LOC: ER 16:15 → MS 16:22
PROVIDERS: Admitting Provider Family Medicine; Emergency Provider Student in an Organized Health Care Education/Training Program; PCP Student in an Organized Health Care Education/Training Program; Visit Provider Family Medicine
DX: E27.1 Primary adrenocortical insufficiency (principal); D84.821 Immunodeficiency due to drugs; R53.83 Other fatigue; E03.9 Hypothyroidism, unspecified; J45.909 Unspecified asthma, uncomplicated; E53.8 Deficiency of other specified B group vitamins; F32.9 Major depressive disorder, single episode, unspecified; K21.9 Gastro-esophageal reflux disease without esophagitis; Z79.52 Long term (current) use of systemic steroids; M54.5 Low back pain; G25.81 Restless legs syndrome; M70.62 Trochanteric bursitis, left hip; M70.61 Trochanteric bursitis, right hip; Z20.822 Contact with and (suspected) exposure to COVID-19
CPT/HCPCS: 36415; 80048; 80053; 87635; 93005; 96374; 96375; 99285; 81003; 83735; 84439; 84443; 85025; 93010; 99222; 99239; J1720; J2405; J7512

== ENCOUNTER 2020-10-25 10:56 | Outpatient (CLI) | payer OTHER, SELFPAY ==
[2020-10-25 13:08] LABS: HCT 40.5 % (36.0-46.0); HGB 13.2 g/dL (11.2-15.7); MCH 29.8 pg (27.0-33.0); MCHC 32.6 % (32.0-36.0); MCV 91.4 fL (80-95); MPV 9.3 fL (8.0-11.0); Platelet Count 285 10^3/uL (130-400); RBC 4.43 10^6/uL (3.93-5.22); RDW 12.4 % (11.7-14.6); RDW-SD 41.2 fL; WBC 10.23 10^3/uL (4.4-10.8)
[2020-10-25 13:09] LABS: ESR 16 mm/hr (0-30)
[2020-10-25 13:12] LABS: Bilirubin Negative (Negative); Blood Negative (Negative); Clarity Clear (Clear); Glucose Negative (Negative); Ketones Negative (Negative); Leukocyte Esterase Negative (Negative); Nitrite Negative (Negative); Urobilinogen 0.2 EU/dL (Up TO 0.2); pH 5.5 (5-8)
[2020-10-25 14:35] LABS: ALT 27 U/L (14-59); AST 18 U/L (15-37); Albumin 3.9 g/dL (3.4-5.0); Alkaline Phosphatase 81 U/L (46-116); Anion Gap 13.5 mmol/L (3-11); BUN 29 mg/dL (7-18); Bilirubin, Total 0.3 mg/dL (0.2-1.0); CO2 23.5 mmol/L (21.0-32.0); CREATININE 1.3 mg/dL (0.55-1.02); Calcium 8.9 mg/dL (8.5-10.1); Chloride 101 mmol/L (98-107); Estimated GFR 42.68 (mL/min/1.73m2); Glucose 129 mg/dL (74-106); Potassium 4.4 mmol/L (3.5-5.1); Sodium 138 mmol/L (136-145); TSH 0.16 uIU/mL (0.36-3.74); Total Protein 7.3 g/dL (6.4-8.2)
[2020-10-25 14:53] LABS: FREE T4 0.89 ng/dL (0.76-1.46)
[2020-10-25 21:53] LABS: T3, Total 146 ng/dL (97-169)
[2020-10-26 16:26] LABS: CRP, High Sensitivity <0.34 mg/L (See Note)
== END 2020-10-25 10:57 | disposition home or self-care (01) ==
LOC: LBO 10:57
PROVIDERS: PCP Student in an Organized Health Care Education/Training Program; Visit Provider Internal Medicine Endocrinology, Diabetes & Metabolism
DX: E27.1 Primary adrenocortical insufficiency (principal); E03.9 Hypothyroidism, unspecified; R53.83 Other fatigue
CPT/HCPCS: 80053; 85027; 85652; 86141; 81003; 84439; 84443; 84480; 86140

== ENCOUNTER 2020-12-07 00:34 | Outpatient (CLI) | payer OTHER, SELFPAY ==
[2020-12-07 08:08] LABS: Anion Gap 7.5 mmol/L (3-11); BUN 22 mg/dL (7-18); CO2 30.5 mmol/L (21.0-32.0); Calcium 8.8 mg/dL (8.5-10.1); Calculated LDL 119 mg/dL (<100); Chloride 104 mmol/L (98-107); Cholesterol 210 mg/dL (<200); Estimated GFR 57.78 (mL/min/1.73m2); Glucose 86 mg/dL (74-106); HDL Cholesterol 69 mg/dL (40-60); Sodium 142 mmol/L (136-145); Triglyceride 113 mg/dL (<150)
[2020-12-07 08:18] LABS: FREE T4 0.86 ng/dL (0.76-1.46); TSH 1.46 uIU/mL (0.36-3.74)
[2020-12-08 00:51] LABS: Vitamin D 25 Total 52.2 ng/mL (30-100)
== END 2020-12-07 00:35 | disposition home or self-care (01) ==
LOC: LBO 00:34
PROVIDERS: PCP Student in an Organized Health Care Education/Training Program; Visit Provider Internal Medicine Endocrinology, Diabetes & Metabolism
DX: E03.9 Hypothyroidism, unspecified (principal); E55.9 Vitamin D deficiency, unspecified; D51.0 Vitamin B12 deficiency anemia due to intrinsic factor deficiency; Z13.220 Encounter for screening for lipoid disorders; N28.9 Disorder of kidney and ureter, unspecified
CPT/HCPCS: 36415; 80048; 80061; 82306; 84439; 84443

== ENCOUNTER 2020-12-31 11:24 | Outpatient (REF) | payer OTHER, SELFPAY ==
--- OUTSIDE RECORDS SUMMARY | 2020-12-31 11:28 | XMS_ITS | Encounter Summary ---
:1965 Author Care Team Providers Name Role Phone Dr. Mercedes Espinoza Primary Care Provider [phone] Mercedes Espinoza DO Primary Care Provider [phone] Dr. Mercedes Espinoza Referring Provider [phone] Reason for Visit Not feeling good, She has doubled sterio d dosing Sat-Mon. Assessment and Plan Assessment Note This E&M visit was carried through a HIPAA compliant Phone call with patient's prior verbal consent. Telehealth video and phone visits are approved under emergency ruling during this Covid-19 pandemic. Total visit time spent is 20 minutes and more than 50% of this visit was spent in counselling about conditions below. 1. [place]'s disease Now grossly stable. Does take occasional extra Glucocorticoid Complaint of fatigue, not explained by c linical exam and labs. Repeat studies had show nomral Chemistri es Na 144 (141,) K 4.5 ( 3.9) GLu 83 BUN 1 6 Creat 1.1 PRA Pending. ------ GIVe Boost e Prednisone 20 mg daily itw o days, then taper as in order. Talk iwth patient tomorrow if not syed r may need to go to ED. consider bried admit. ? prednisone 5 mg tablet Discussion Note: None recorded.Patient educational handouts: No information available. Plan of Care Patient Goals Satisfactory replacement with least possible steroid to lessen lo ng term complications. Treatment of short term exaserbations. Patient Instructions Adrenal short term 1) Prednisone 5 mg: a) FOUR (2) times two days b) THree (3) times two days c) Two tabs (2( for two days 2) then resume usual Plan Call Saturday. before Noon. Reminders Provider Appointments Return to on or around [facility]am[facility], Office 04/03/2021 MD-FACE Lab None ? ? recorded. Referral None ? ? recorded. Procedures None ? ? recorded. Surgeries None ? ? recorded. Imaging None ? ? recorded. Medications Name Start Date ? ? Advair Diskus 500 mcg-50 mcg/dose powder for inhalatio n ? Inhale 1 puff twice a day by inhalation route as dire cted. buspirone 15 mg tablet ? Take 1 tablet twice a day by oral route. cetirizine 10 mg tablet ? Take 1 tablet every day by oral route as directed. cyanocobalamin (vit B-12) 1,000 mcg tablet ? Take 1 tablet every day by oral route as directed. fludrocortisone 0.1 mg tablet ? TAKE 1 TABLET BY MOUTH EVERY DAY DIRECTED fluticasone propionate 50 mcg/actuation nasal spray,pelaez spension ? [place] 1 spray every day by intranasal route. gabapentin 100 mg capsule ? Take 2 capsules twice a day by oral route. levothyroxine 75 mcg tablet ? one tablet every ODD daily preferrably take with plain water at least four hours after last meal and at least one hour before any other beverage, food, pills or vitamin. (preferablly in AM) levothyroxine 88 mcg tablet ? one tablet every EVEN daily preferrably take with plain water at least four hours after last meal and at least one hour before any other beverage, food, pills or vitamin. (preferablly in AM) Lotemax 0.5 % eye drops,suspension ? INSTILL 1 DROP INTO AFFECTED EYE(S) BY OPHTHALMIC ROUTE 3 TIMES PER DAY. For autoimmune dry eye per eye doctor. magnesium oxide 400 mg (241.3 mg magnesium) tablet ? Take 1 tablet every day by oral route. multivitamin ? omeprazole 20 mg capsule,delayed release ? Take 1 capsule every day by oral route. prednisone 1 mg tablet ? Take two tabs in AM with a 2.5 mg to gi ve 4.5 mg Prednisone each morning; then one tablet at noon, and 1/2 tablet at 4 pm daily prednisone 2.5 mg tablet ? Take one tabs in AM with two 1 mg to gi ve 4.5 mg Prednisone each morning; [then one tablet of 1 mg at noon, and 1/2 tablet of 1 mg at 4 pm daily ] *may need extra for Stress dosing. prednisone 5 mg tablet ? Prednisone 5 mg: Six day coursa) FOUR ( 4) by mouth with food each morning times two daysb) THree (3) by mouth with food each morning times two daysc) Two tabs (2) by mouth with food each morning for two days2) then resume usual Plan ProAir HFA 90 mcg/actuation aerosol inhaler ? Inhale 2 puffs every 4 hours by inhalation route as n eeded. Solu-Cortef 100 mg solution for injection ? Inject 100 mg up to twice daily for mo derate symptoms of Adrenal Insufficiency. Note only short term. IF very sick must be seen in ED. Vitamin D3 25 mcg (1,000 unit) capsule ? Take 1 capsule every day by oral route as directed. Medications Administered None recorded. Vitals Height Weight 5 ft 6 in Results Lab Results None recorded. Allergies Code Code System Name Reaction Severity Onset Animal Dander ? ? ? 7101724 RxNorm Gluten ? ? ? Problems Name Status Onset Date Source ? Non-toxic Nodular Goiter Active 11/28/2016 ? Hypothyroidism Active 11/28/2016 ? 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 Cobalamin Deficiency Active 11/28/2016 ? Depressive Disorder Active 11/28/2016 ? Restless Legs Active 11/28/2016 ? Seasonal Allergy Active 11/28/2016 ? Asthma Active 11/28/2016 ? Gastroesophageal Reflux Disease Active 11/28/2016 ? Hydrosalpinx Active 11/28/2016 ? Endometritis Active 11/28/2016 ? Pain in Pelvis Active 11/28/2016 ? Abdominal Discomfort Active 11/28/2016 ? Gluten Sensitivity Active 11/28/2016 ? Bone Density below Reference Range Active 12/04/2016 ? Hip Pain Active 01/08/2018 ? Plantar Fasciitis Active 01/08/2018 ? Pain in Left Foot Active 01/08/2018 ? Long-term Current Use of Steroid Active 09/22/2019 ? Notes: lichen sclerosis Procedures Date Name Performed by ? ? Total Hysterectomy Information not avai lable ? Breast Biopsy Information not avai lable ? Tubal Ligation Information not avai lable Vaccine List Vaccine Type SARS-COV-2 (COVID-19) vaccine, UNSPECIFI ED 06/15/2020 07/13/2020 Social History Tobacco Smoking Status Never Smoker Have you received the covid Y Notes: Dante daigle, vaccine this year? (If so, documented, nicole weston in document vaccination in Vaccine chart. Module in [place]) Are you able to care for Y yourself? Are you currently waiting on N results of a COVID-19 test? How much tobacco do you chew? none Are you isolating or N quarantining because you may have been exposed to a person with COVID-19 or are worried that you may be sick with COVID-19? What was the date of your most 10/17/2020 recent tobacco screening? Do you have an advanced N directive? Do you or have you ever used Never used electronic e-cigarettes or vape? cigarettes In the 14 days before symptom N onset, did the patient spend time in [facility]? How many years have you smoked 0 tobacco? Have you travelled outside of [facility] in the past 14 days? Have you experienced any of the N following symptoms in the past 48 hours? Fever/Chills, Cough, Shortness of breath or difficulty breathing, fatigue, muscle or body aches, headache, new loss of taste or smell, sore throat, congestion or runny nose, nausea or vomiting and/or diarrhea Have you had any vaccines in the N last month or do you have any vaccines scheduled? Do you or have you ever used Never used smokeless tobacco smokeless tobacco? Within the past 14 days, have N you been in close physical contact (6 feet or closer for a cumulative total of 15 minutes) with anyone that is known to have laboratory-confirmed COVID-19? OR Anyone who has any symptoms consistent with COVID-19? Have you been to an area known N to be high risk for COVID-19? At what age did you start 0 smoking tobacco? Family History Relation Problem Onset Age of Age Notes Brother Hypothyroidism (No N/A Now 49 on Information) Levothyroxine Maternal Type 2 diabetes (No N/A (No Notes) Grandmother mellitus Information) Mother Heart disease 55 N/A [place] 55, STents Functional Status Unknown. Past Encounters 10/17/2020 [place]'s Disease Markie Cantrell MD-FACE: [address] [facility], [place] [address], Ph. 09/26/2020 [place]'s Disease; Hypothyroidism; Non-t oxic Nodular Goiter; Bone Density below Reference Range; Fatigue; Long-term Current Use of Steroid Markie Cantrell MD-FACE: [address] [facility], [place] [address], Ph. History of Present Illness Note: <div>BV6 month f/u thyroid and Faustina's. Patient states no change to allergies or medications.</div><div>
</div><div> </div><div>

Faustina's disease and Hypothyrodism. Polyglandular Failure
</div><div> </div><div>This 55 year old white female now is seen for followup Endocrinologic evaluation and management of Adrenal and Thyroid Disease: Addisons and Hypothyroidism </div>& lt;div>
</div><div>Ghada has not been feeling that great. </div><div>This weekend felt, more tired, run down, no energy. </div><div>No cold. No covid symp tomts</div><div>Doubled her steronids Sat, Saturday. Little Better. </div><div> Today did double dose 530 took 4.5 mg thought she would be okay, Took a second 4.5 mg, then at 10 AM, took another dose. </div><div> Feels like it was prior to Diagnosis of Addisons.</di v><div> </div><div> Does not feel light headed. No diarrhea or vomiting. </div><div> No fever. No chills. </div><div> Fought through days. Completed work but cannot do this tomorrow. </div><div> </div><div> No Burning with urination.NO frequency. </div><div> Not peeing much. No thirsty.</div><div> NO rash.</div><div> NO belly pain. Only hips mildly achy. No severe pain. </div><div> &l t;/div><div>Overall Ghada has been tired but okay. Mild tired. Did have spell of feeling great. very sensitive to heat and humidity.. Still working 40 hours Mon to . 6 - 2 PM</div><div>Now her energy is not very good last two weeks, but over times sometime good, sometime low. </div><div>
</div><div>
</div>&l t;div>Working at [employer]. Winter time is cool, but dressing for it. </div><div>&lt ;br></div><div>Bilateral TEnsdoinititis, Working with PT at work, taping, iceing, Added braces this weekend. .</div><div> . </div><div> Sleeping well. Bed 830 pm to 430 AM. Get up once to void. Gets right back to sleep. IF she takes braces off. </div><div >
</div><div> Her thirst is near normal. Drinking plenty of water. More withHeat. </div><div>
</div><div> Reports no nausea, vomiting, diarrhea. </div><div>
</div><div>
</div>&l t;div>Reports infrequent, mild lightheadedness >>>> dizziness. Like head is balloon in eddie. No change.</div><div>
</div><div>Brief spell last week. Took extra steroids for two days. ++also head pressure. </div><div> </div><div>Not having severe headaches, Not having hot flashes or night sweats. </div><div>
</di v><div>Some mild shaking, has been worse in past. Stable. Had seen neurologist in past, andwas told not Parkinsons. </div><div>
</div><div>Issues with Dads estate. ALL DONE. . Mother Oct 2018. ALL DONE> Relief</div><div>
</d iv><div>Hypothyroidism:</div><div> as above </div><div> Vision is good.</div><div> Weight has been stable </div><div> Appetite is fair. </div><div> Tolerate cold, pretty good </div><div> No numbness, tingling in feet or hands. </div><div>
</div><div>Treatment with SYnthroid now on 75 mcg one daily and not taking extra 1./2 tab once a week. (swed) </div><div>
</div><div>Addisons: </div><div> as above </div><div> </div><div& gt;Now taking Prednisone 4.5 mg in AM, 1.0 mg at Noon, and 0.5 mg at 4 pm. with FLuodrocortison 0.1 mg once each Am Seem to sleep okay. </div><div>
</div><div>Was tried on Hydrocortisone 30 mg once daily, Did not did work well. </div><div>
</di v><div>
</div><div>Some Thyroid Nodules. Just watching. </div><div>
</div><div>Low Bone Density</div><div> DEXA </div><div> Mild. early 2016 Calcium borderline normal to low. 25 vitamin D good.</div><div> Never had fractures.</div><div> Does not take extra calcium. </div><div> Dotake vitamins, MVI, Vit D3 1000 units </div><div>
</div><div>GERD &l t;/div><div> On pantoprazole for two years. Saw GI Dr. Scanlon who did not recommend Scope. January 2015. Also she avoids Gluten</div><div>
</div><div> </div><div>LABS DONE </div><div> 09-16-2020</div><div>
</div><div>TSH 5.46 mIu/ml hi ;; FT4 0.70 ng/dl low ;; </div><div>BMP Na 144 K 4.5 Calcium 9.4 GLu 83 BUN 16 Creat 1.1 eGFR 52 ; </div><div>Phos 4.5 mg/dl ;;; Mg 1.9 mg/dl ;;;;; </div><div>
</div><div>03-23-2020</ div><div>BMP Na 140 K 4.o cl 102 CO2 28.7 BUN 18 Creat 1.16 eGFR 48 Glu 93 Porfirio 8.9 </div><div>Phos 4.0 Mg 1.8 </div><div>TSH 2.03 FT4 0.92 </div><div>Renin Axctivity 7.1 </div><div>ACTH < 5 </div><div>
</div><div>UA Leuk est Mod Feb 2020 </div><div>
</div><div>09-07-2019&lt ;/div><div>
</div><div>TSH 1.94 wnl ;; FT4 1.21 wnl ;;</div><div> ACTH < 0.5 ;; </div><div>PRA 4.2 (Na Replete Upright 0.6 to 3.0, mean 1.0 ; Na Deplete, upright 2.9 to 10.8, mean 5.9)</div><div> BMP Porfirio 9.6 Phos 4.0 GLuc 112 BUn12 Creat 0.99 NA 141 K 3.9 ;</div><div>
</div><div>
</di v><div>03/07/2019</div><div>Calcium 9.0 Phos 3.9 GLuc 122 BUN 19. Crea 096 Na 142 K 3.9 Cl 106 CO2 25.4</div><div>TSH 0.23 FT4 0.99 </div><div>ACTH <5.-</div><div>PRA pending</div><div>
</div><div><br&g t;</div><div>
</div><div> 08-23-2018</div><div>CMP Glu 92 BUN 16 Creat 1.01 TP 6.9, Jv 0.4 Na 143 K 3.7 Porfirio 9.1 ;; </div><div> Dalton 3.2 ;; Mg 2.2 wnl ;;</div><div>TSH 1.78 (0.358 - 3.74) :: Free T4 1.16 (0.76 - 1.46) ;; </div><div>Sed Rate 18 wnl ;; CRP 0.23</div><div>PRA 6.6 (Na Deplete 2.9 - 10.8) (Na replete <0.6 to 3.0) ;; ACTH < 5.0 low (7.2 - 63) ;;</div><div>
</div ><div>03-26-2018</div><div>
</div><div&gt ;Phos 3.3 wnl ; Calc8.9 wnl ; BMP Na 142 K 3.8 BUN 19 hi Creat 1.05 hi eGFR 55 ; </div><div>Mag 1.5 low (1.8to 2.4) </div><div>TSH 0.90 wnl ; FT4 0.98 wnl ; CBC 7270 WBC, 39.3% Hct remainder OKAY&l t;/div><div>ACTH < 5 ; PRA 6.5 (2.9 to 10.8) ; Urine Osmo 727</div><div>
</div><div> September 12 2017 (rough week with her dad passing.</div><div& gt;
</div><div>CMP Glca 8.9 Phos 3.8 Gluc 75 BUn 17 Creat 1.08</div><div>
</div><div>Lytes Na 140 K 3.5 </div><div>
</div><div>Free T 4 0.84 TSH 2.32</div><div>
</div><div>CB C 7640 WBC HCt 41.3 % Plts 276,000 Eos 1.7% </div><div>
</div><div> Pen ding</div><div>ACTH </div><div>PRA </div><div>Urine Osm</div&g t;<div>
</div><div> 12/24/16 </div>&lt ;div>
</div><div>
</div><div>cmp Calcium 8.2 mildly lowpHOS 3.4 good TP/Alb 6.6 /3.6</div><div>Remaning chem all very good Na 143 / K 3.7 low normal potassium </div><div>Free T4 0.85 TSH 1.48 </div><div>
</div><div>CRP 0.16 but Sed Rate (ESR) 11 both normal </div><div>
</div&g t;<div>ADrenal </div><div> --- ACTH < 5.0 low Not elevated </div><div>PRA Plasma Renin 2.1 good </div><div> </div><div>
</div> <div>
</div><div>
</div><div>`&l t;br>
Patient here for faustina's and thyroid follow up. Patient states no changes in allergies and that she has started two new medications (eye drops and an antibiotic). Patient states that she is not f eeling good and hasn't for a while, too exhausted, has been missing work.</div><div& gt; </div><div><b r>
[place]'s disease and Hypothyrodism. Polyglandular Failure
</div><div> </div><div>This 52 year old whitefemale nowis seen for followup Endocrinologic evaluation and management of Adrenal and Thyroid Disease: Addisons and Hypothyroidism </div><div>
</div><div>
</div>&l t;div>Now feels lousy, crappy, tired, exhausted. Her energy is really down. Unable to go to work last two days. </div><div> </div><div>She has had no nausea, vomiting. No diarrhea. </div><div>
</div><div>She has had no lightheadness or dizziness.</div><div>did have UTI and doubled steroids for two days. Did not notice any improvem ent.</div><div>
</div><div>Yesterday stomach hurt but today okay. Not that bother some. Takes pantoprazole in 5 AM. </div><div>
</div><div& gt;
</div><div>
</div><div>Last two weeks Dad , had been sick. Fell asleep, did not wake up. Now getting slowly back. </div><div>
</ div><div>
</div><div>Hypothyroidism:</div>&l t;div> Has had norecurrence. headaches and pressure down my jaw. </div><div> Sweet taste in mouth comes and goes No clue what is causing this. May be sickly sweat. (likes sweets) Stays for hours. No benefit short term rise in Pantoprazole to 40 mg. </div><div> Vision is good.</div><div> Weight has been decreasing. </div><div> Appetite isf fair. </div><div> Tolerate cold. poorlyn </div><div> No numbness, tingling in feet or hands. </div>< div>
</div><div>Treatment with SYnthroid now on 75 mcg plus 1./2 tab once a week. f </div><div>
</div><div>Addisons: </div><div> Shehas had no nausea vomiing. Nor any dirarhea.</div><div> Rarely lightheadedness or dizziness. very brief if bends over. </div><div> Enegry fair. Eating well. : </div><div> </div><div>Now taking Prednisone 4.5 mg in AM, 1.0 mg at Noon, and 0.5 mg at 4 pm. FLuodrocortison 0.1 mg once each Am Seem to sleep okay. </div><div>
</div>& lt;div>
</div><div>
</div><div>< br></div><div>Some Thyroid Nodules. Just watching. </div><div>
</div><div>Low Bone Density</div><div> DEXA </div><div> Mild. early 2016 Calcium borderline normal to low. 25 vitamin D good.</div><div> Never had fractures.</div><div> Does not take extra calcium. </div><div> Do take vitamins, MVI, Vit D3 1000 units &lt ;/div><div>
</div><div>GERD </div><div> On pantoprazole for two years. Saw GI Dr. Scanlon who did not recommend Scope. January 2015. Also she avoids Gluten</ div><div>
</div><div>Labs . </div><div>
</div&g t;<div>
</div><div>
</div><div>C alcium 9.3 Glucose 102 BUN 26 Creat 1.32 Na 136 K 4.3</div><div>prior CMP BUN 12 creat 0.9 </div><div >
</div><div>
</div><div>LABS DONE </div><div&g t;09-16-2020</div><div>
</div><div>BMP Na 144 K 4.5 Calcium 9.4 GLu83 BUN 16 Creat 1.1 eGFR 52 ;</div><div>Phos 4.5 mg/dl ;;; Mg 1.9 mg/dl </div><div>TSH 5.46 mIu/ml hi ;; FT4 0.70 ng/dl ;;</div><div>
</div><div> 03-26-2018</div><div>
</div><div>Phos 3.3 wnl ; Calc 8.9 wnl ; BMP Na 142 K 3.8 BUN 19 hi Creat 1.05 hi eGFR 55 ; </div><div>Mag 1.5 low (1.8 to 2.4) </div><div>TSH 0.90 wnl ; FT4 0.98 wnl ; CBC 7270 WBC, 39.3% Hct remainder OKAY</div><d iv>ACTH < 5 ; PRA 6.5 (2.9 to 10.8) ; Urine Osmo 727</div><div>
</div><div> September 12 2017 (rough week with her dad passing.</div><div>
&l t;/div><div>CMP Glca 8.9 Phos 3.8 Gluc 75 BUn 17 Creat 1.08</div><div>
</div><div>Lytes Na 140 K 3.5 </div><div>
</div><div>Free T 4 0.84 TSH 2.32</div><div>
</div><div>CB C 7640 WBC HCt 41.3 % Plts 276,000 Eos 1.7% </div><div>
</div><div> Pending</div&gt ;<div>ACTH </div><div>PRA </div><div>Urine Osm</div><div>
</div><div> 12/24/16 </div><div><br& gt;</div><div>
</div><div>cmp Calcium 8.2 mildly low pHOS 3.4 good TP/Alb 6.6 /3.6</div><div>Remaning chem all very good Na 143 / K 3.7 low normal potassium</div><div>Free T4 0.85 TSH 1.48 </div><div>
</div><div>CRP 0.16 but Sed Rate (ESR) 11 both normal </div><div>
</div><div>ADrenal </div><div> --- ACTH < 5.0 low Not elevated </div><div>PRA Plasma Renin 2.1 good </div><div> </div><div>
</div><div>DEXA Oct 27 2019
</div><div>Lat Spine Images: No compression deformities</div><div>
</div><div>Left Hip Total BMP -- Tscore -0.9</div><div>& lt;br></div><div>Lumbar Sine BMD -- Tscore -0.5</div><div>
</div><div>Normal Bone Densities by TSCORE</div><div>
</div><div& gt;Unfortunate numbers for BMD not included.</div><div><div>
</div>& lt;div>`</div></div> Review of Systems ? Comprehensive Adult Problem ROS Reported By: Patient Constitutional: Constitutional: no significa nt weight change, good appetite, no fever, normal activity le crys, fatigue Eyes: Eyes: no eye pain, no blurry vision, no eye redness, no eye itchiness, no eye swelling; No diplopia ENMT: ENMT: no ear pain, no ear di scharge, no hearing loss, no sore throat, no hoarseness Cardiovascular: Cardiovascular: no chest yani n; No chest pressure, heaviness, or discomfort. No jaw, arm, neck pain, pressure, heaviness, discomfort of other anginal equivalent, no exetional dypnea, palpitations, +Sometimes lig htheadenss but rarely dizziness, Respiratory: Respiratory: no cough, no wh eezing, normal respiration Gastrointestinal: GI: no difficulty swallowing , no abdominal pain, no vomiting, no blood in stools; no melen a, no change in bowel habits Genitourinary: : no blood in urine, no pa in with urination, no vaginal discharge; Recent UTI Musculoskeletal: Musculoskeletal: no soft tis edward swelling, no joint swelling, no myalgia, moves all extrem ities well Skin: Skin: no pain, no itchiness, no redness, no rash, no hives, dry skin; no excessive bruis ing. no red, painful or wide stretch herrera Neurological symptoms: Neuro: no numbness, no weakn ess, no tingling, no burning, no shooting pain, no headache, no dizziness, no loss of consciousness Psychiatric: Psych: no depression, no anx iety, no insomnia Endocrine: Endocrine: normal drinking, no temperature intolerance; No polyuria. No polydipisia Physical Exam ? Notes: <div>Virtual </div>
--- OUTSIDE RECORDS SUMMARY | 2020-12-31 11:28 | XMS_ITS ---
:1965 Author Care Team Providers Name Role Phone DR. HERNÁN MADSEN Primary Care Provider [phone] DR. HERNÁN MADSEN Referring Provider [phone] HERNÁN MADSEN DO Primary Care Provider [phone] Allergies Code Code System Name Reaction Severity Status Onset Animal ? ? Active ? Dander [id number] RxNorm Gluten ? ? Active ? Medications Name Status Start Date Stop Date ? ? Advair Diskus 500 mcg-50 mcg/dose powder for inhalation Active ? Not available Inhale 1 puff twice a day by inhalation route as directed. Bactrim DS 800 mg-160 mg tablet Completed ? 09/02/2018 Take 1 tablet every 12 hours by oral route for 5 days. buspirone 15 mg tablet Active ? Not avail able Take 1 tablet twice a day by oral route. cetirizine 10 mg tablet Active ? Not avai lable Take 1 tablet every day by oral route as directed. cyanocobalamin (vit B-12) 1,000 mcg tablet Active ? Not available Take 1 tablet every day by oral route as directed. DHEA 50 mg tablet Completed ? 12/04/2016 Take 1 tablet every day by oral route as directed. fludrocortisone 0.1 mg tablet Active ? No t available TAKE 1 TABLET BY MOUTH EVERY DAY DIRECTED fluticasone propionate 50 mcg/actuation nasal spray,suspension A ctive ? Not available Tamms 1 spray every day by intranasal route. gabapentin 100 mg capsule Active ? Not av ailable Take 2 capsules twice a day by oral route. gabapentin 300 mg capsule Completed ? 2017 Take 1 capsule twice a day by oral route as directed. levothyroxine 75 mcg tablet Active ? Not available one tablet every ODD daily preferrably take with plain water at least four hours after last meal and at least one hour before any other beverage, food, pills or vitamin. (preferablly in AM) levothyroxine 88 mcg tablet Active ? Not available one tablet every EVEN daily preferrably take with plain water at least four hours after last meal and at least one hour before any other beverage, food, pills or vitamin. (preferablly in AM) Lotemax 0.5 % eye drops,suspension Active ? Not available INSTILL 1 DROP INTO AFFECTED EYE(S) BY OPHTHALMIC ROUTE 3 TIMES PER DAY. For autoimmune dry eye per eye doctor. magnesium oxide 400 mg (241.3 mg magnesium) tablet Active ? Not available Take 1 tablet every day by oral route. meclizine 25 mg tablet Completed ? 7 Take 1 tablet 3 times a day by oral route as needed. multivitamin Active ? Not available nystatin 100,000 unit/mL oral suspension Completed ? 12/04/2016 Take 5 mL 4 times a day by oral route as directed. omeprazole 20 mg capsule,delayed release Active ? Not available Take 1 capsule every day by oral route. pantoprazole 20 mg tablet,delayed release Completed ? 09/26/2020 Take 1 tablet every day by oral route as directed. prednisone 1 mg tablet Active ? Not avail able Take two tabs in AM with a 2.5 mg to gi ve 4.5 mg Prednisone each morning; then one tablet at noon, and 1/2 tablet at 4 pm daily prednisone 2.5 mg tablet Active ? Not sangita ilable Take one tabs in AM with two 1 mg to gi ve 4.5 mg Prednisone each morning; [then one tablet of 1 mg at noon, and 1/2 tablet of 1 mg at 4 pm daily ] *may need extra for Stress dosing. prednisone 5 mg tablet Active ? Not avail able Prednisone 5 mg: Six day coursa) FOUR ( 4) by mouth with food each morning times two daysb) THree (3) by mouth with food each morning times two daysc) Two tabs (2) by mouth with food each morning for two days2) then resume usual Plan ProAir HFA 90 mcg/actuation aerosol inhaler Active ? Not available Inhale 2 puffs every 4 hours by inhalation route as needed. Solu-Cortef 100 mg solution for injection Active ? Not available Inject 100 mg up to twice daily for mo derate symptoms of Adrenal Insufficiency. Note only short term. IF very sick must be seen in ED. Vitamin D3 25 mcg (1,000 unit) capsule Active ? Not available Take 1 capsule every day by oral route as directed. Problems Name Status Onset Date Source ? Non-toxic Nodular Goiter Active 11/28/2016 ? Hypothyroidism Active 11/28/2016 ? 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 Cobalamin Deficiency Active [...] ? Tubal Ligation Information not avai lable 01/08/2018 XR, [facility] - R adiology [address] [place] [address] (Work Place) 10/06/2019 [facility] [address], [place] [address] (Work Place) Results Lab Results Date Name Specimen Result Interpretation Description Value Range Status Address ? 10/25/2020 Cbc ? No observation ? ? ? [facility] recorded. [facility]: [address], [place] 09/16/2020 T4, Free, Serum ? No observation ? ? ? [facility] recorded. [facility]: [address], [place] 09/16/2020 TSH, Serum or ? No observation ? ? ? [facility] Plasma recorded. [facility]: [address], [place] 09/16/2020 Magnesium, Blood ? No observation ? ? ? [facility] recorded. [facility]: [address], [place] 09/16/2020 Phosphorus, Serum ? No observation ? ? ? [facility] or Plasma recorded. [facility] ab: [address], [place] 09/16/2020 BMP, Blood ? No observation ? ? ? [facility] recorded. [facility]: [address], [place] 09/07/2019 BMP, Blood ? No observation ? ? ? [facility] recorded. [facility]: [address], [facility] 09/07/2019 Acth, Baseline, ? No observation ? ? ? [facility] Plasma recorded. [facility]: [facility] D r, [facility] 09/07/2019 Magnesium, Blood ? No observation ? ? ? [facility] recorded. [facility]: [facility] D r, [facility] 09/07/2019 TSH, Serum or ? No observation ? ? ? [facility] Plasma recorded. [facility]: [facility] D r, [facility] 09/07/2019 T4, Free, Serum ? No observation ? ? ? [facility] recorded. [facility]: [facility] D r, [facility] 09/07/2019 Phosphorus, Serum ? No observation ? ? ? [facility] or Plasma recorded. [facility]: [address], [facility] 09/07/2019 Renin Activity, ? No observation ? ? ? [facility] Plasma (Pra) recorded. [facility]: [facility] D [facility], [facility] 03/07/2019 T4, Free, Serum ? No observation ? ? ? recorded. 03/07/2019 Magnesium, Blood ? No observation ? ? ? recorded. 03/07/2019 BMP, Blood ? No observation ? ? ? [facility] recorded. [facility]: [facility] D r, [facility] 03/07/2019 BMP, Blood ? No observation ? ? ? [facility] recorded. [facility]: [facility] D r, [facility] 08/23/2018 T4, Free, Serum ? No observation ? ? ? [facility] recorded. [facility]: [facility] D r, [facility] 08/23/2018 TSH, Serum or ? No observation ? ? ? [facility] Plasma recorded. [facility]: [facility] D r, [facility] 08/23/2018 Magnesium, Blood ? No observation ? ? ? [facility] recorded. [facility]: [facility] D r, [facility] 08/23/2018 Phosphorus, Serum ? No observation ? ? ? [facility] or Plasma recorded. [facility]: [facility] D r, [facility] 08/23/2018 BMP, Blood ? No observation ? ? ? [facility] recorded. [facility]: [facility] D r, [facility] 08/23/2018 Renin Activity, ? No observation ? ? ? [facility] Plasma (Pra) recorded. [facility]: [address] [place] [address] D r, [facility] 08/23/2018 Acth, Baseline, ? No observation ? ? ? [facility] Plasma recorded. [facility]: [facility] D r, [facility] 04/03/2018 C-reactive ? No observation ? ? ? [facility] Protein, recorded. [facility] D [facility], [facility] 04/03/2018 Hepatic Function ? No observation ? ? ? [facility] Panel, Serum recorded. [facility]: [address] [place] [address] D r, [facility] 04/03/2018 Erythrocyte ? No observation ? ? ? [facility] Sedimentation recorded. [facility]: [facility] D r, [facility] 03/26/2018 CBC W/ Diff ? No observation ? ? ? [facility] recorded. [facility]: [facility] D r, [facility] 03/26/2018 T4, Free, Serum ? No observation ? ? ? [facility] recorded. [facility]: [address] [place] [address] D r, [facility] 03/26/2018 TSH, Serum or ? No observation ? ? ? [facility] Plasma recorded. [facility]: [address] [place] [address] D r, [facility] 03/26/2018 Magnesium, Blood ? No observation ? ? ? [facility] recorded. [facility]: [facility] D r, [facility] 03/26/2018 Phosphorus, Serum ? No observation ? ? ? [facility] or Plasma recorded. [facility]: [address] [place] [address] D r, [facility] 03/26/2018 Osmolality, Urine ? No observation ? ? ? [facility] recorded. [facility]: [address] [place] [address] D r, [facility] 03/26/2018 Acth, Baseline, ? No observation ? ? ? [facility] Plasma recorded. [facility]: [address] [place] [address] D r, [facility] 03/26/2018 Renin Activity, ? No observation ? ? ? [facility] Plasma (Pra) recorded. [facility]: [address], [facility] 12/26/2017 Renin Activity, ? No observation ? ? ? [facility] Plasma (Pra) recorded. [facility]: [address] [place] [address] D r, [facility] 12/26/2017 Acth, Baseline, ? No observation ? ? ? [facility] Plasma recorded. [facility]: [address] [place] [address] D r, [facility] 12/26/2017 T4, Free, Serum ? No observation ? ? ? [facility] recorded. [facility]: [address] [place] [address] D r, [facility] 12/26/2017 TSH, Serum or ? No observation ? ? ? [facility] Plasma recorded. [facility]: [address] [place] [address] D r, [facility] 12/26/2017 Phosphorus, Serum ? No observation ? ? ? [facility] or Plasma recorded. [facility]: [address] [place] [address] D r, [facility] 12/26/2017 BMP, Blood ? No observation ? ? ? [facility] recorded. [facility]: [address] [place] [address] r, [facility] 12/26/2017 CBC W/ Diff ? No observation ? ? ? [facility] recorded. [facility]: [address] [place] [address] D r, [facility] 09/12/2017 Osmolality, Urine ? No observation ? ? ? [facility] recorded. [facility]: [address] [place] [address] D r, [facility] 05/16/2017 BMP, Blood ? No observation ? ? ? [facility] recorded. [facility]: [address] [place] [address] D r, [facility] 12/24/2016 ESR (Erythrocyte ? No observation ? ? ? [facility] Sedimentation recorded. [place] Rate), [facility]: [address] [place] [address] D r, [facility] 12/24/2016 C-reactive ? No observation ? ? ? [facility] Protein, recorded. [facility]: [address] [place] [address] D r, [facility] 12/24/2016 T4, Free, Serum ? No observation ? ? ? [facility] recorded. [facility]: [address] [place] [address] D r, [facility] 12/24/2016 TSH, Serum or ? No observation ? ? ? [facility] Plasma recorded. [facility]: [address] [place] [address] D r, [facility] 12/24/2016 CMP, Serum or ? No observation ? ? ? [facility] Plasma recorded. 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 09/26/2020 Tom's Disease; Hypothyroidism; Non-t oxic Nodular Goiter; Bone Density below Reference Range; Fatigue; Long-term Current Use of Steroid Markie Cantrell [facility]FACE[facility] [address] [facility] [place] [address], Ph. 04/04/2020 Manchester's Disease; Hypothyroidism; Non-t oxic Nodular Goiter; Bone Density below Reference Range; Fatigue; Long-term Current Use of Steroid Markie Cantrell MD-FACE: [address] [place] [address], Ph. 09/22/2019 Tom's Disease; Hypothyroidism; Non-t oxic Nodular Goiter; Bone Density below Reference Range; Fatigue; Long-term Current Use of Steroid Markie Cantrell MD-FACE: [address] [address], Ph. Social History Tobacco Smoking Status Never Smoker Vaccine List Vaccine Type SARS-COV-2 (COVID-19) vaccine, UNSPECIFI ED 06/15/2020 07/13/2020 Plan of Care Patient Goals Satisfactory replacement with least possible steroid to lessen lo ng term complications. Treatment of short term exaserbations. Satisfactory replacement with least possible steroid to lessen lo ng term complications. Satisfactory replacement with least possible steroid to lessen lo ng term complications. Satisfactory replacement with least possible steroid to lessen lo ng term complications. Patient Instructions Adrenal short term 1) Prednisone 5 mg: a) FOUR (2) times two days b) THree (3) times two days c) Two tabs (2( for two days 2) then resume usual Plan Call Saturday. before Noon. Adrenal 1) Prednisone 6 mg: a) 2.5 mg plus two 1 mg - 4.5 mg each m orning b) 1 mg at noon c) 0.5 mg at supper (not at bedtime) 2) Fluodrocortsone a) 0.1 mg each morning. 3) Water -- Drink more water Thyroid 3) increasedosing of Levothyroxine 75 mc g / 88 mcg alternat daily one daily every day. Labs: 1. Go for THyroid Studies in 2 - 3 month s Mid Nov to Dec 2020 2. go for COmprehensive Adrenal THyroid Studies two weeks before next visit Fasting and Nothing to drink for 8 hour before Testing --a) Blood ---b) 24 HOUR URINE record BP and HR next two weeks at bedtime upon first awakeing each morning. also any time when symptoms begin Adrenal 1) Prednisone 6 mg: a) 2.5 mg plus two 1 mg - 4.5 mg each m orning b) 1 mg at noon c) 0.5 mg at supper (not at bedtime) 2) Fluodrocortsone a) 0.1 mg each morning. 3) Water -- Drink more water Thyroid 3) continue same dosing of Synthroid 75 mcg daily one daily every day. Labs: go two weeks before next visit Fasting and Nothing to drink for 8 hour before Testin a) Blood b) 24 HOUR URINE Adrenal 1) Prednisone 6 mg: a) 2.5 mg plus two 1 mg - 4.5 mg each m orning b) 1 mg at noon c) 0.5 mg at supper (not at bedtime) 2) Fluodrocortsone a) 0.1 mg each morning. 3) Water Drink more water Thyroid 3) continue same dosing of Synthroid 75 mcg daily one daily every day. Labs: go two weeks before next visit Fasting and Nothing to drink for 8 hour before Testin a) Blood b) Spot urine Reminders Provider Appointments None recorded. ? ? Lab None recorded. ? ? Referral None recorded. ? ? Procedures None recorded. ? ? Surgeries None recorded. ? ? Imaging None recorded. ? ? Vitals 10/17/2020 04:00PM Virtual Check-in Phone Height Weight 167.64 cm 09/26/2020 12:30PM ENDOCRINOLOGY FOLLOW UP 30 Height Weight BMI Blood Pressure 167.64 cm 77.9 kg 27.7 kg/m2 100/68 mm[Hg] 04/04/2020 03:00PM ENDOCRINOLOGY FOLLOW UP 30 Height Weight BMI Blood Pressure 167.64 cm 74.84 kg 26.6 kg/m2 118/76 mm[Hg] 09/22/2019 03:00PM ENDOCRINOLOGY FOLLOW UP 30 Height Weight BMI Blood Pressure 167.64 cm 74.84 kg 26.6 kg/m2 122/64 mm[Hg] 03/24/2019 03:00PM ENDOCRINOLOGY FOLLOW UP 30 Height Weight BMI Blood Pressure 167.64 cm 74.84 kg 26.6 kg/m2 100/70 mm[Hg] 09/02/2018 04:00PM ENDOCRINOLOGY FOLLOW UP 30 Height Weight BMI Blood Pressure 167.64 cm 75.3 kg 26.8 kg/m2 106/70 mm[Hg] 04/02/2018 03:00PM ENDOCRINOLOGY FOLLOW UP 30 Height Weight BMI Blood Pressure 167.64 cm 74.84 kg 26.6 kg/m2 110/64 mm[Hg] 02/17/2018 03:45PM FOLLOW UP Height Weight BMI Blood Pressure 167.64 cm 74.39 kg 26.5 kg/m2 110/60 mm[Hg] 02/03/2018 03:15PM FOLLOW UP Height Weight BMI Blood Pressure 167.64 cm 74.39 kg 26.5 kg/m2 104/58 mm[Hg] 01/08/2018 02:00PM NEW PATIENT Height Weight BMI Blood Pressure 167.64 cm 74.39 kg 26.5 kg/m2 118/60 mm[Hg] 09/24/2017 12:30PM ENDOCRINOLOGY FOLLOW UP 30 Height Weight BMI Blood Pressure 167.64 cm 74.39 kg 26.5 kg/m2 120/80 mm[Hg] 05/21/2017 03:00PM ENDOCRINOLOGY FOLLOW UP 30 Height Weight BMI Blood Pressure 167.64 cm 72.12 kg 25.7 kg/m2 92/68 mm[Hg] 01/15/2017 03:00PM ENDOCRINOLOGY FOLLOW UP 30 Height Weight BMI Blood Pressure 167.64 cm 77.11 kg 27.4 kg/m2 110/64 mm[Hg] 12/04/2016 10:30AM ENDOCRINOLOGY NEW PATIENT 60 Height Weight BMI Blood Pressure 167.64 cm 73.03 kg 26 kg/m2 100/76 mm[Hg]
== END 2020-12-31 11:25 | disposition home or self-care (01) ==
LOC: LBN 11:24
PROVIDERS: PCP Student in an Organized Health Care Education/Training Program; Visit Provider Physician Assistant Medical
DX: R30.0 Dysuria (principal)
CPT/HCPCS: 87077; 87086; 87186

== ENCOUNTER 2021-01-16 14:12 | Emergency (ER) | payer OTHER, SELFPAY ==
--- NOTE | 2021-01-16 14:15 | RT.EKG_ITS ---
APPROVED REPORT Exam: Resting ECG Reason for Exam: chest pain Patient Location: E HR:76 bpm ECG Measurements Heart Rate 76 AXIS OK 155 P 72 QRSd 95 QRS 67 QT 386 T 7 QTc 435 Conclusion Sinus rhythm...normal P axis, V-rate 60- 99 Left atrial enlargement...P, P'>60mS, <-0.15mV V1 no STEMI, non-diagnostic EKG I have reviewed and interpreted ECG and agree with software generated interpretation.
[2021-01-16 14:24] VITALS: BP 117/74; PULSE 80; RESP 16; TEMP 36.5; O2SAT 99
--- NOTE | 2021-01-16 14:30 | DI.RAD_ITS ---
Exam(s) XR CHEST 2V PA LATERAL EXAM: XR CHEST 2V PA LATERAL CLINICAL HISTORY: cp. TECHNIQUE: 2D digital imaging was performed. COMPARISON: No exams were available for comparison FINDINGS: Heart size is normal. The mediastinum is not widened. Lungs are clear. No infiltrates nor pleural effusions. IMPRESSION: No acute pulmonary findings. DATA REPOSITORY: RADIATION DOSE DELIVERED:
[2021-01-16] MEDS: Aspirin 81 MG CHEW 324 MG CH (15:19)
[2021-01-16 15:21] LABS: Abs Immature Grans 0.03 10^3/uL (0.0-0.06); Absolute Basophil Count 0.04 10^3/uL (0.0-0.2); Absolute Eosinophil Count 0.05 10^3/uL (0.0-0.7); Absolute Lymphocyte Count 1.27 10^3/uL (1.2-3.4); Absolute Monocyte Count 0.68 10^3/uL (0.1-0.8); Absolute Neutrophil Count 5.62 10^3/uL (1.2-6.7); Basophils % 0.5; Eosinophils % 0.7; HCT 40.9 % (36.0-46.0); HGB 13.1 g/dL (11.2-15.7); Immature Grans % 0.4; Lymphocytes % 16.5; MCH 29.7 pg (27.0-33.0); MCV 92.7 fL (80-95); MPV 9.4 fL (8.0-11.0); Monocytes % 8.8; Neutrophils % 73.1; Nucleated RBC 0 %; Platelet Count 303 10^3/uL (130-400); RBC 4.41 10^6/uL (3.93-5.22); RDW-SD 44.2 fL; WBC 7.69 10^3/uL (4.4-10.8)
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
[2021-01-16 15:36] LABS: PTT Activated 22.4 sec (21.0-27.5); Prothrombin Time 9.9 sec (9.3-11.0)
[2021-01-16 15:39] LABS: ALT 47 U/L (14-59); AST 20 U/L (15-37); Albumin 4.1 g/dL (3.4-5.0); Alkaline Phosphatase 84 U/L (46-116); Anion Gap 11.1 mmol/L (3-11); BUN 16 mg/dL (7-18); Bilirubin, Total 0.2 mg/dL (0.2-1.0); CO2 26.9 mmol/L (21.0-32.0); CREATININE 0.9 mg/dL (0.55-1.02); Calcium 9.1 mg/dL (8.5-10.1); Chloride 105 mmol/L (98-107); Glucose 108 mg/dL (74-106); Magnesium 2.1 mg/dL (1.8-2.4); Potassium 3.6 mmol/L (3.5-5.1); Sodium 143 mmol/L (136-145); Total Protein 7.9 g/dL (6.4-8.2)
[2021-01-16 15:39] LABS: Source Nasal/Nares
[2021-01-16 15:40] LABS: Troponin I < 0.05 ng/mL (<0.06)
[2021-01-16 15:49] LABS: D-Dimer 429 ng/mlFEU (<500)
[2021-01-16 15:51] VITALS: RESP 18
[2021-01-16] MEDS: Ketorolac 30 MG/ML VIAL IVP (16:06)
--- NOTE | 2021-01-16 16:19 | DI.VRAD_ITS ---
PROCEDURE INFORMATION: Exam: XR Chest Exam date and time: 01/16/2021 2:40 PM Age: 55 years old Clinical indication: Pain; Other: Cp TECHNIQUE: Imaging protocol: XR of the chest. Views: 2 views. COMPARISON: CTA ABDOMEN 12/18/2014 5:41 PM FINDINGS: Tubes, catheters and devices: EKG leads overlie the chest. Lungs: Unremarkable. No consolidation. Pleural spaces: Unremarkable. No pleural effusion. No pneumothorax. Heart/Mediastinum: Unremarkable. No cardiomegaly. Bones/joints: Unremarkable. IMPRESSION: No acute findings. Dictated and Authenticated by: Salomon Wray MD. Ordering:MATTHEW Pagan MD
[2021-01-16 17:03] LABS: COVID-19 PCR Negative (Negative)
[2021-01-16 18:09] VITALS: BP 115/68; PULSE 64; RESP 18; O2SAT 97
[2021-01-16 18:31] LABS: Troponin I < 0.05 ng/mL (<0.06)
[2021-01-16 19:12] VITALS: BP 132/72; PULSE 69; RESP 18; TEMP 36.6; O2SAT 97
== END 2021-01-16 19:13 | disposition home or self-care (01) ==
PROVIDERS: Physician Assistant; Emergency Provider Physician Assistant; PCP Student in an Organized Health Care Education/Training Program
DX: R07.9 Chest pain, unspecified (principal); R06.02 Shortness of breath; R07.81 Pleurodynia; Z20.822 Contact with and (suspected) exposure to COVID-19
CPT/HCPCS: 80053; 87635; 93005; 96374; 99284; 71046; 83735; 84484; 85025; 85379; 85610; 85730; 93010; J1885

== ENCOUNTER 2021-01-24 00:44 | Outpatient (CLI) | payer OTHER, SELFPAY ==
--- NOTE | 2021-01-24 09:00 | ETT_ITS ---
APPROVED REPORT Exam: Exercise Treadmill Patient Location: Out-Patient Room/Bed: Stress Nurse: Shraddha Del Angel RN Ordering Provider:ELIOT LOPEZ, Contact Number: [phone] BMI: 27.43 Baseline Rhythm: Sinus Rhythm Indications: CHEST PAIN Medical History Medical History: Hypothyroidism, Asthma, Depression, GERD, Osteopenia Cardiac Medications: Pantoprazole, Omeprazole, Magnesium oxide, Famotidine, Albuterol sulfate inhaler , Prednisone, Levothyroxine Allergies: Gluten, Animal dander Cardiac Risk Factors: FHX of CAD, Asthma Previous Cardiac Procedures: None Pretest Chest Pain Characteristics: No chest pain Exercise History: Sedentary Physical Disabilities: None Lung Sounds: Clear to auscultation Heart Sounds: Regular Stress Test Details Test: Exercise stress testing was performed using a Perez protocol. Rest Stress HR Resting HR Supine: 76 bpm Max Heart Rate (APMHR): 166 bpm Resting HR Standin bpm Target HR (85% APMHR): 141 bpm Max HR Achieved: 150 bpm % of APMHR: 90 Recovery HR: 90 bpm HR response to stress: Accelerated HR response to stress BP Resting BP Supine: 130/84 mmHg Resting BP Standin/74 mmHg Max BP: 162/70 mmHg Recovery BP: 124/70 mmHg BP response to stress: Normal blood pressure response to stress. ECG Resting ECG: Sinus Rhythm Ectopy: None Stress ECG: Sinus Tachycardia ST Change: No significant ST segment changes noted Arrhythmia: None Recovery ECG: Sinus Rhythm Recovery ST Change: No significant ST segment changes noted Recovery Arrhythmia: 3 beat SVT, PACs Clinical Reason for Termination: Fatigue, Chest pain/Anginal equivalent Stress Symptoms: Chest pain, Dyspnea Exercise duration: 3 min46 sec Highest Stage Reached: Stage 2: 2.5 mph at 12% grade. Exercise capacity: 5 METs Functional Capacity: 55 Teixeira Treadmill Score: -4 Rate Pressure Product: [id number] Stress ECG Conclusion 1. The resting electrocardiogram was within normal limits 2. Patient exercised on the Perez protocol, completing a workload of 5 METS. Below average exercise tolerance 3. Normal blood pressure response to exercise. Rapid heart rate response to exercise suggests decond itioning. Patient achieved 90% of predicted heart rate for age 4. Electrocardiographically there was no evidence of myocardial ischemia 5. Atrial premature beats and atrial triplets were noted Teixeira Treadmill Score is -4 which is Moderate risk. Stress Test Summary STAGE Time (mins) Speed (mph) Grade (%) HR BP SYMPTOMS METS Supine 76 130/84 Standing 78 120/74 1 3 1.7 10 136 160/82 4.6 1 min recovery 126 158/68 3 min recovery 99 162/70 6 min recovery 90 124/70
== END 2021-01-24 01:04 ==
PROVIDERS: PCP Student in an Organized Health Care Education/Training Program; Visit Provider Physician Assistant
DX: R07.9 Chest pain, unspecified (principal); Z82.49 Family history of ischemic heart disease and other diseases of the circulatory system; J45.909 Unspecified asthma, uncomplicated; I49.1 Atrial premature depolarization; I51.9 Heart disease, unspecified
CPT/HCPCS: 93017

== ENCOUNTER 2021-03-20 02:42 | Outpatient (CLI) | payer OTHER, SELFPAY ==
[2021-03-20 08:46] LABS: Anion Gap 11.1 mmol/L (3-11); BUN 21 mg/dL (7-18); CO2 26.9 mmol/L (21.0-32.0); CREATININE 0.9 mg/dL (0.55-1.02); Chloride 104 mmol/L (98-107); FREE T4 0.83 ng/dL (0.76-1.46); Glucose 87 mg/dL (74-106); PHOSPHORUS 4.5 mg/dL (2.6-4.7); Potassium 3.8 mmol/L (3.5-5.1); Sodium 142 mmol/L (136-145); TSH 5.81 uIU/mL (0.36-3.74)
[2021-03-21 12:01] LABS: Adrenocorticotropic Hormone, P <5.0 pg/mL
[2021-03-22 17:24] LABS: Renin Activity, Plasma 3.2 ng/mL/h
== END 2021-03-20 02:43 | disposition home or self-care (01) ==
LOC: LBO 02:42
PROVIDERS: PCP Student in an Organized Health Care Education/Training Program; Visit Provider Internal Medicine Endocrinology, Diabetes & Metabolism
DX: E27.1 Primary adrenocortical insufficiency (principal); E03.9 Hypothyroidism, unspecified
CPT/HCPCS: 36415; 80048; 82533; 82024; 83735; 84100; 84244; 84439; 84443

== ENCOUNTER 2021-03-27 14:31 | Outpatient (REF) | payer OTHER, SELFPAY ==
[2021-03-28 08:57] LABS: Calcium Urine 3.7 mg/dL (See Note); Calcium Urine 24 hr 74 mg/24hrs (100-300); Timed Urine Volume 2000 mL
== END 2021-03-27 14:32 | disposition home or self-care (01) ==
LOC: LBN 14:31
PROVIDERS: PCP Student in an Organized Health Care Education/Training Program; Visit Provider Internal Medicine Endocrinology, Diabetes & Metabolism
DX: R93.7 Abnormal findings on diagnostic imaging of other parts of musculoskeletal system (principal)
CPT/HCPCS: 81050; 82340

== ENCOUNTER 2021-05-02 02:26 | Outpatient (CLI) | payer OTHER, SELFPAY | END 2021-05-02 02:27 | disposition home or self-care (01) | LOC: LBO 02:26 | PROVIDERS: PCP Student in an Organized Health Care Education/Training Program; Visit Provider Internal Medicine Endocrinology, Diabetes & Metabolism ==

== ENCOUNTER 2021-06-07 02:40 | Outpatient (CLI) | payer OTHER, SELFPAY ==
[2021-06-07 16:43] LABS: FREE T4 0.91 ng/dL (0.76-1.46); TSH 0.29 uIU/mL (0.36-3.74)
[2021-06-08 23:13] LABS: Thyroperoxidase Antibody >1300 U/mL (<=60)
== END 2021-06-07 02:41 | disposition home or self-care (01) ==
LOC: LBO 02:40
PROVIDERS: PCP Student in an Organized Health Care Education/Training Program; Visit Provider Internal Medicine Endocrinology, Diabetes & Metabolism
DX: E04.9 Nontoxic goiter, unspecified (principal); E03.9 Hypothyroidism, unspecified
CPT/HCPCS: 36415; 84439; 84443; 86376

== ENCOUNTER 2021-09-05 10:49 | Emergency (ER) | payer OTHER, SELFPAY ==
[2021-09-05 10:55] VITALS: BP 138/81; PULSE 81; RESP 18; TEMP 36.8; O2SAT 98
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
[2021-09-05] MEDS: Ketorolac 30 MG/ML VIAL IVP (11:28)
[2021-09-05] MEDS: Normal Saline 1,000 ML 1000 ML IV (11:29)
[2021-09-05 11:31] LABS: Abs Immature Grans 0.06 10^3/uL (0.0-0.06); Absolute Basophil Count 0.02 10^3/uL (0.0-0.2); Absolute Eosinophil Count 0.02 10^3/uL (0.0-0.7); Absolute Lymphocyte Count 1.08 10^3/uL (1.2-3.4); Absolute Monocyte Count 0.41 10^3/uL (0.1-0.8); Basophils % 0.3; Eosinophils % 0.3; HCT 37.5 % (36.0-46.0); HGB 12.4 g/dL (11.2-15.7); Immature Grans % 0.9; Lymphocytes % 15.5; MCHC 33.1 % (32.0-36.0); MCV 91 fL (80-95); MPV 9.4 fL (8.0-11.0); Monocytes % 5.9; Neutrophils % 77.1; Platelet Count 258 10^3/uL (130-400); RBC 4.13 10^6/uL (3.93-5.22); RDW 13.2 % (11.7-14.6); RDW-SD 44.1 fL; WBC 6.99 10^3/uL (4.4-10.8)
[2021-09-05 11:32] LABS: Bilirubin Negative (Negative); Blood Negative (Negative); Clarity Clear (Clear); Glucose Negative (Negative); Ketones Negative (Negative); Leukocyte Esterase Negative (Negative); Nitrite Negative (Negative); Urobilinogen 0.2 EU/dL (Up TO 0.2); pH 6.5 (5-8)
[2021-09-05 11:47] LABS: ALT 85 U/L (14-59); AST 38 U/L (15-37); Albumin 3.9 g/dL (3.4-5.0); Alkaline Phosphatase 120 U/L (46-116); BUN 10 mg/dL (7-18); Bilirubin, Total 0.2 mg/dL (0.2-1.0); Calcium 8.9 mg/dL (8.5-10.1); Chloride 104 mmol/L (98-107); Estimated GFR 57.56 (mL/min/1.73m2); Glucose 96 mg/dL (74-106); Lipase 109 U/L (73-393); Potassium 3.8 mmol/L (3.5-5.1); Sodium 140 mmol/L (136-145); Total Protein 7.4 g/dL (6.4-8.2)
--- NOTE | 2021-09-05 12:00 | DI.CT_ITS ---
Exam(s) CT RENAL COLIC WO EXAM: CT RENAL COLIC WO CLINICAL HISTORY: L flank pain, r/o kidney stone, pyelonephritis. TECHNIQUE: Imaging Protocol: Axial computed tomography images with coronal and sagittal reformatted images were created and reviewed. CONTRAST MATERIAL: Noncontrast COMPARISON: CT PELVIC/LOWER ABD WITHOUT CONT from 12/18/2014 CT CTA ABDOMEN from 12/18/2014 FINDINGS: ABDOMEN: Lung Bases: Normal where visualized. Liver: Normal attenuation. No measurable mass. Gallbladder and biliary tract: No radiodense calculus or dilation. Pancreas: Normal density, no calcifications or inflammatory process. Spleen: Normal. Kidneys: Normal size, contour and axis. No radiodense stones or obstructive uropathy. No masses seen. Adrenal glands: No masses seen. Abdominal Aorta: Abdominal portion non-dilated. PELVIS: Bladder: Symmetric distention, no gross wall thickening. Bowel: No obstruction or bowel wall thickening. Peritoneal cavity: No ascites, collection or mesenteric inflammatory response. Reproductive: Status post hysterectomy. Bones: Degenerative disc changes eccentric toward the right at L1-2. Marked narrowing of the L5-S1 d isc space. Gross evidence of a disc herniation. Milder degenerative disc changes L2-3. IMPRESSION: No evidence of hydronephrosis or urinary tract calculi. Unremarkable CT scan of the abdomen and pelv is. RADIATION DOSE DELIVERED: 847.79mGy.cm Total DLP DATA REPOSITORY: All CT scans at this facility are submitted to the National Radiology Data Registry (NRDR) Dose Index Registry (DIR) with the [employer] (A[employer]). RADIATION OPTIMIZATION: All CT scans at this facility use at least one of these dose optimization te chniques: automated exposure control; mA and/or kV adjustment per patient size (includes targeted exa ms where dose is matched to clinical indication); or iterative reconstruction.
[2021-09-05 13:10] VITALS: BP 132/80; PULSE 65; RESP 18; TEMP 37; O2SAT 98
== END 2021-09-05 13:12 | disposition home or self-care (01) ==
PROVIDERS: Emergency Provider Physician Assistant; PCP Student in an Organized Health Care Education/Training Program
DX: M54.50 Low back pain, unspecified (principal); R35.0 Frequency of micturition
CPT/HCPCS: 80053; 83690; 96361; 96374; 99284; 74176; 81003; 85025; J1885

== ENCOUNTER 2021-09-13 01:59 | Outpatient (CLI) | payer OTHER, SELFPAY ==
[2021-09-13 15:29] LABS: ALT 44 U/L (14-59); AST 22 U/L (15-37); Albumin 3.8 g/dL (3.4-5.0); Alkaline Phosphatase 99 U/L (46-116); Anion Gap 8.8 mmol/L (3-11); BUN 13 mg/dL (7-18); Bilirubin, Direct 0.1 mg/dL (0.0-0.2); Bilirubin, Total 0.2 mg/dL (0.2-1.0); CO2 27.2 mmol/L (21.0-32.0); CREATININE 0.9 mg/dL (0.55-1.02); Calcium 8.7 mg/dL (8.5-10.1); Chloride 104 mmol/L (98-107); Glucose 102 mg/dL (74-106); Potassium 4.3 mmol/L (3.5-5.1); Sodium 140 mmol/L (136-145); Total Protein 6.8 g/dL (6.4-8.2)
== END 2021-09-13 02:00 | disposition home or self-care (01) ==
PROVIDERS: PCP Student in an Organized Health Care Education/Training Program; Visit Provider Student in an Organized Health Care Education/Training Program
DX: R79.89 Other specified abnormal findings of blood chemistry (principal); M54.59 Other low back pain; R35.0 Frequency of micturition
CPT/HCPCS: 36415; 80048; 80076

== ENCOUNTER 2021-09-29 01:37 | Outpatient (CLI) | payer OTHER, SELFPAY ==
[2021-09-29 08:29] LABS: Calculated LDL 143 mg/dL (<100); Cholesterol 242 mg/dL (<200); HDL Cholesterol 72 mg/dL (40-60); Triglyceride 138 mg/dL (<150)
[2021-09-29 08:33] LABS: Anion Gap 8.3 mmol/L (3-11); BUN 21 mg/dL (7-18); CO2 28.7 mmol/L (21.0-32.0); CREATININE 1.2 mg/dL (0.55-1.02); Calcium 9.3 mg/dL (8.5-10.1); Chloride 102 mmol/L (98-107); Estimated GFR 46.64 (mL/min/1.73m2); FREE T4 0.96 ng/dL (0.76-1.46); Glucose 99 mg/dL (74-106); Magnesium 2.1 mg/dL (1.8-2.4); Potassium 4.4 mmol/L (3.5-5.1); Sodium 139 mmol/L (136-145); TSH 1.26 uIU/mL (0.36-3.74)
[2021-09-30 14:52] LABS: Adrenocorticotropic Hormone, P <5.0 pg/mL
[2021-10-03 11:48] LABS: Renin Activity, Plasma 16 ng/mL/h
== END 2021-09-29 01:38 | disposition home or self-care (01) ==
LOC: LBO 01:38
PROVIDERS: PCP Student in an Organized Health Care Education/Training Program; Visit Provider Internal Medicine Endocrinology, Diabetes & Metabolism
DX: E27.1 Primary adrenocortical insufficiency (principal); E03.9 Hypothyroidism, unspecified; Z13.220 Encounter for screening for lipoid disorders
CPT/HCPCS: 36415; 80048; 80061; 82533; 82024; 83735; 84100; 84244; 84439; 84443

== ENCOUNTER → 2021-10-24 02:24 | Outpatient (CLI) | payer OTHER, SELFPAY ==
--- NOTE | 2021-10-24 08:30 | DI.MAMMO_ITS ---
Exam(s) MAMMO SCREENING EXAM: MAMMO SCREENING CLINICAL HISTORY: screening,z12.39 TECHNIQUE: Mammograms were interpreted according to the usual protocol including computer analysis w [employer] CAD system, tomosynthesis and C-view imaging. COMPARISON: 2013 through 2020 FINDINGS: The breasts are composed of scattered fibroglandular densities, Breast Density category B. No suspicious masses or suspicious microcalcifications are seen. There is a stable nodule containing a biopsy marker clip in the lateral subareolar region of the left breast. Additional biopsy marker is seen in the upper outer quadrant of left breast. There is a stable nodule in the subareolar regio n of the right breast. No skin thickening or abnormal axillary lymph nodes are seen. There has been no significant change from prior exams. IMPRESSION: BI-RADS Category 2 -Negative mammogram with benign findings. Yearly screening mammography is recomme nded. Breast Density - Category B, scattered fibroglandular densities. A negative radiographic report should not delay biopsy if a dominant or clinically suspicious mass is present. Up to ten percent of cancers are not identified on mammography. A negative report may reinforce clinical impression. Adenosis and dense breasts may obscure an underlying neoplasm. False positive reports average 6 to 10%. Patient will receive a letter notifying them of these results.
== END ==
PROVIDERS: PCP Student in an Organized Health Care Education/Training Program; Visit Provider Student in an Organized Health Care Education/Training Program
DX: Z12.31 Encounter for screening mammogram for malignant neoplasm of breast (principal)
CPT/HCPCS: 77063; 77067

== ENCOUNTER → 2021-11-01 01:05 | Outpatient (CLI) | payer OTHER, SELFPAY ==
--- NOTE | 2021-11-01 08:00 | DI.RAD_ITS ---
Exam(s) XR FOOT RT COMPLETE EXAM: XR FOOT RT COMPLETE CLINICAL HISTORY: eval lateral bony prominence; spurs,BILAT FOOT PAIN, PLANTAR FASCITIS, TECHNIQUE: COMPARISON: CR XR foot LT complete from 01/28/2018 FINDINGS: Three views were obtained. Alignment appears within normal limits. No bony or soft tissue abnormali ty seen. IMPRESSION: RADIATION DOSE DELIVERED: Total DLP
--- NOTE | 2021-11-01 08:00 | DI.RAD_ITS ---
Exam(s) XR FOOT LT COMPLETE EXAM: XR FOOT LT COMPLETE CLINICAL HISTORY: eval lat bonyprominence, spurs,BILAT FOOT PAIN, PLANTAR FASCITIS,M79.672, TECHNIQUE: COMPARISON: CR XR FOOT RT COMPLETE from 11/01/2021 FINDINGS: Three views were obtained. Alignment appears within normal limits. There is small enthesophyte of t he site of attachment the plantar fascia on the calcaneus. No other bony or soft tissue abnormality seen. IMPRESSION: RADIATION DOSE DELIVERED: Total DLP
== END ==
PROVIDERS: PCP Student in an Organized Health Care Education/Training Program; Visit Provider Student in an Organized Health Care Education/Training Program
DX: M72.2 Plantar fascial fibromatosis (principal); M79.671 Pain in right foot; M77.32 Calcaneal spur, left foot
CPT/HCPCS: 73630

== ENCOUNTER 2021-11-01 02:41 | Outpatient (CLI) | payer OTHER, SELFPAY ==
[2021-11-01 14:58] LABS: Anion Gap 11.4 mmol/L (3-11); BUN 22 mg/dL (7-18); CO2 25.6 mmol/L (21.0-32.0); CREATININE 1.1 mg/dL (0.55-1.02); Calcium 8.8 mg/dL (8.5-10.1); Chloride 104 mmol/L (98-107); Estimated GFR 51.57 (mL/min/1.73m2); Glucose 119 mg/dL (74-106); Sodium 141 mmol/L (136-145)
== END 2021-11-01 02:42 | disposition home or self-care (01) ==
LOC: LBO 02:41
PROVIDERS: PCP Student in an Organized Health Care Education/Training Program; Visit Provider Student in an Organized Health Care Education/Training Program
DX: R79.89 Other specified abnormal findings of blood chemistry (principal)
CPT/HCPCS: 36415; 80048

== ENCOUNTER → 2021-11-02 01:12 | Outpatient (CLI) | payer OTHER, SELFPAY ==
--- NOTE | 2021-11-02 07:30 | DI.MRI_ITS ---
Exam(s) MR LOWER JOINT RT WO EXAM: MR LOWER JOINT RT WO CLINICAL HISTORY: PAIN,RT HIP TROCHANTERIC BURSITIS, M70.61 TECHNIQUE: Multiplanar multisequence MRI of Pelvis and right hip was performed COMPARISON: MR MR LOWER JOINT BI WO from 12/01/2018 CR XR HIP PELVIS ADULT BL from 02/18/2019 FINDINGS: There is no fracture or contusion pattern. No significant joint effusion is present. No bone marrow e salvador is seen. There are 2 tiny cysts in the superior and anterior portions of the acetabulum. There is no significant fluid collection in the trochanteric bursa. There is edema in the distal right gl uteus medius tendon. There is partial muscle atrophy of the right inferior gluteus medius muscle wit h fatty signal replacement. This appears to have worsened when compared with the previous exam. A p ortion of the gluteus minimus muscles also shows atrophy bilaterally, greater on the right. This do es not appear significantly changed from the prior. The gluteus meghan muscles are symmetric. The SI joints and symphysis pubis are well maintained. There are degenerative changes in the lower lumbar spine. Musculotendinous structures: Musculotendinous structures demonstrate no abnormality. Intrapelvic str uctures demonstrate prior hysterectomy. There is a mild cystocele.. IMPRESSION: Tendinitis of the right gluteus medius. Partial right gluteus medius muscle atrophy. Partial atroph y of both gluteus minimus muscles. DATA REPOSITORY:
== END ==
PROVIDERS: PCP Student in an Organized Health Care Education/Training Program; Visit Provider Student in an Organized Health Care Education/Training Program
DX: M70.61 Trochanteric bursitis, right hip (principal)
CPT/HCPCS: 73721

== ENCOUNTER → 2021-11-14 00:53 | Outpatient (CLI) | payer OTHER, SELFPAY ==
--- NOTE | 2021-11-14 06:45 | DI.MRI_ITS ---
Exam(s) MR LUMBAR SPINE WO EXAM: MR LUMBAR SPINE WO INDICATION: L5-S1 disc herniation on abdomen CT, lower back pain, M54.50. COMPARISON: MR MRI - LUMBAR SPINE WO CONTRAST from 12/24/2011 TECHNIQUE: MR examination of the lumbosacral spine was performed according to the usual protocol. FINDINGS: There is normal bony signal throughout except for mild Lexis discal vertebral signal changes at the L 1 2 level consistent with disc degeneration. There is loss of height of the intervertebral disc spac es at L1-2 and L5-S1, consistent with disc degeneration. Intervertebral discs show mildly decreased signal throughout, most marked at L1-2 and L5-S1. The conus medullaris appears intact. There are mild changes of facet hypertrophy and endplate hypertrophy throughout the lumbar region. There is no evidence of a central canal spinal stenosis, or neural foraminal stenosis, in the lumbar region. No disc herniation is identified in the lumbar region. There is some prominence of the disc osteophy te complex at L5-S1 on the right without significant neural impingement. IMPRESSION: Degenerative changes as described above with evidence of disc degeneration at L1-2 and L5-S1.
== END ==
PROVIDERS: PCP Student in an Organized Health Care Education/Training Program; Visit Provider Student in an Organized Health Care Education/Training Program
DX: M54.59 Other low back pain (principal); M51.37 Other intervertebral disc degeneration, lumbosacral region
CPT/HCPCS: 72148

== ENCOUNTER 2021-11-15 11:21 | Outpatient (CLI) | payer OTHER, SELFPAY ==
--- NOTE | 2021-11-15 11:15 | DI.RAD_ITS ---
Exam(s) XR HIP RT COMPLETE AP PELVIS EXAM: XR HIP RT COMPLETE AP PELVIS CLINICAL HISTORY: RIGHT HIP F/U. TECHNIQUE: 2D digital imaging was performed. COMPARISON: MRI scan 11/02/2021 FINDINGS: Two views No evidence of pelvic nor hip fracture. No hip joint space narrowing. Bone density normal. No osse ous lesions. IMPRESSION: No significant findings. DATA REPOSITORY: RADIATION DOSE DELIVERED:
== END 2021-11-15 11:22 | disposition home or self-care (01) ==
LOC: DIORS 11:22
PROVIDERS: PCP Student in an Organized Health Care Education/Training Program; Referring Provider Student in an Organized Health Care Education/Training Program; Visit Provider Student in an Organized Health Care Education/Training Program
DX: M70.61 Trochanteric bursitis, right hip (principal)
CPT/HCPCS: 73502

== ENCOUNTER → 2021-12-07 02:26 | Outpatient (CLI) | payer OTHER, SELFPAY ==
--- NOTE | 2021-12-07 14:47 | DI.DEXA_ITS ---
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 COMPARISON: 2016 through 2019 FINDINGS: Lateral view of the thoracic and lumbar spine shows no evidence of compression fractures. Bone mineral density measurements of the lumbar spine correspond to a total T-score of -1.3, in the osteopenic range. This represents an 8.4 percent decrease from 2019 and 12.6 percent decrease from 2017. Bone mineral density measurements of the left hip correspond to a total T-score of -1.1. The femora l neck T-score is -2.2, in the osteopenic range. This represents a 2.4 percent, not statistically s ignificant, decrease compared with 2019 in 8.2 percent decrease compared to 2017.. The left forearm bone mineral density measurements correspond to a T-score of the distal 3rd of 2.1, in the normal range, not significantly changed.. IMPRESSION: Osteopenia of the lumbar spine and left hip. Normal bone density of the left forearm.
== END ==
PROVIDERS: PCP Student in an Organized Health Care Education/Training Program; Visit Provider Student in an Organized Health Care Education/Training Program
DX: E27.1 Primary adrenocortical insufficiency (principal); Z79.52 Long term (current) use of systemic steroids; Z13.820 Encounter for screening for osteoporosis; M85.89 Other specified disorders of bone density and structure, multiple sites
CPT/HCPCS: 77080

== ENCOUNTER 2021-12-14 10:47 | Day surgery (SDC) | payer OTHER, SELFPAY ==
[2021-12-14] VITALS (8 sets, daily range): BP systolic 118–142; BP diastolic 69–87; PULSE 54–70; RESP 10–22; TEMP 36.1–36.4; O2SAT 97–99; BMI 28.0
[2021-12-14] MEDS: Lactated Ringers 1,000 ML 30 ML IV (11:30)
--- NOTE | 2021-12-14 12:00 | W.ANESPRE ---
General Info Date of Service Date Performed: 12/14/21 Height: 5 ft 6 in Weight: 78.925 kg Body Mass Index (BMI): 28.0 Surgical Procedure: Operation Date: 12/14/21 12:20 Proposed Procedure Side Surgeon p Endoscopic Iliotibial Band Release w/ Trochanteric Buresectomy and Gluteal Tendon Repair Right Valentino Quiles MD Meds Allergies and Home Medications Allergies Allergy/AdvReac Type Severity Reaction Status Date / Time gluten AdvReac Intermediate stomach Verified 12/13/21 12:40 gets bloated, gassy ANIMAL DANDER Allergy Intermediate Uncoded 12/13/21 12:40 Home Medication Medication Instructions Recorded multivitamin 1 tab PO DAILY 06/06/12 cholecalciferol (vitamin D3) 25 1,000 unit PO DAILY 12/14/14 mcg (1,000 unit) capsule (Vitamin D3) fludrocortisone 0.1 mg tablet 0.1 mg PO DAILY 01/01/18 magnesium oxide 400 mg PO DAILY 08/27/18 cyanocobalamin (vitamin B-12) 1,000 mcg PO DAILY 05/13/19 1,000 mcg tablet,extended release (Vitamin B-12 ER) fluticasone propionate 50 2 spray intranasal BID #16 grams 05/07/20 mcg/actuation nasal spray,suspension prednisone 1 mg tablet 2 mg PO DAILY PRN fatigue #20 tabs 10/21/20 prednisone 10 mg tablet 6 mg PO DAILY 11/10/20 albuterol sulfate 90 mcg/actuation 2 puff inhalation Q4H PRN ##3 12/20/20 aerosol inhaler (ProAir HFA) buspirone 15 mg tablet 15 mg PO BID #180 tabs 12/20/20 fluticasone 500 mcg-salmeterol 50 1 inh inhalation BID ##3 12/20/20 mcg/dose blistr powdr for inhalation (Advair Diskus) omeprazole 20 mg capsule,delayed 20 mg PO DAILY #90 caps 07/11/21 release magic mouthwash 15 ml PO TID tongue burning and 09/26/21 pain #500 mL cetirizine 10 mg tablet (Zyrtec) 10 mg PO DAILY #90 tab-caps 10/07/21 gabapentin 300 mg capsule See Rx Instructions PO DAILY #180 10/25/21 caps hydrocortisone sod succinate 100 See Rx Instructions IM Q12H 10/31/21 mg solution for injection (Solu-Cortef) levothyroxine 88 mcg tablet 88 mcg PO DAILY 10/31/21 Current Visit Medications: Current Medications Generic Name Dose Route Start Last Admin Trade Name Adq PRN Reason Stop Dose Admin Ringer's Solution 1,000 mls @ 30 mls/hr 12/14/21 06:00 12/14/21 11:30 IV 01/12/22 23:59 30 mls/hr INFUSION ANA MARIA Administration Cefazolin Sodium/Dextrose 2 gm in 50 mls @ 100 mls/hr 12/14/21 06:00 Ancef Duplex IVPB 01/12/22 23:59 PREOP ANA MARIA IV Miscellaneous Supplies 1 each 12/14/21 06:00 Iv Access IV 01/12/22 23:59 DIRECTED ANA MARIA Oxycodone HCl 0 mg 12/14/21 07:15 Oxycodone 5 Mg Tab PO Q3H PRN PRN Pain Sodium Chloride 0 ml 12/14/21 06:00 Normal Saline Flush 10 Ml Syr IV 01/12/22 23:59 PRN PRN Sodium Chloride 0 ml 12/14/21 06:00 Normal Saline 10 Ml Vial IJ 01/12/22 23:59 DIRECTED PRN Sterile Water 0 ml 12/14/21 06:00 Water,Injection,Sterile 10 Ml Vial IJ 01/12/22 23:59 DIRECTED PRN PFSH Active Problems Active Problems: Problem Status Onset Code Osteopenia ~2017 M85.80 Iliotibial band syndrome of right side M76.31 Tear of right gluteus medius tendon S76.011A Plantar fasciitis, bilateral M72.2 Foot pain, bilateral M79.671, M79.672 Trochanteric bursitis, right hip M70.61 Tongue burning sensation K14.6 Lower back pain M54.50 Right hip pain M25.551 Chest pain R07.9 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 Bilateral hand pain M79.641, M79.642 Hypothyroidism E03.9 Asthma 06/09/12 J45.909 Strain of left index finger Vertigo R42 RLS (restless legs syndrome) 05/10/16 G25.81 Sinusitis, acute, maxillary J01.00 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 Neuralgia and neuritis, unspecified M79.2 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 Contusion T14.8XXA Left leg injury S89.92XA History of bilateral ligation of fallopian tubes Z98.51 Blood transfusion without reported diagnosis Z51.89 Breast lump 02/14/05 N63.0 Dysfunctional uterine bleeding N93.8 Episode of shaking R25.1 Frequent headaches R51 Unspecified nontoxic nodular goiter E04.9 Seasonal allergies 09/22/13 J30.2 Pelvic pain 07/27/15 R10.2 Lichen sclerosus 06/15/14 L90.0 Hydrosalpinx 12/29/14 N70.11 Gluten intolerance 07/14/15 K90.41 Gastroesophageal reflux disease without esophagitis 12/14/14 K21.9 Endometriosis N80.9 Depression 05/10/16 F32.9 B12 deficiency 09/22/13 E53.8 Altered taste 02/19/17 R43.2 Abdominal discomfort, generalized 04/06/15 R10.84 Medical History Medical History Abdominal bloating Bilateral knee pain Depressive disorder (02/15/00) Hip pain, bilateral Seen by Rheum who ordered MRI (NEG for necrosis). Cystic findings and Hamstring inflamm/tear warrants review by PT/Ortho for etiology and possible non-invasive Tx plan. Hot flashes Drenched, fatigued .. Hx menopause with hot flashes years ago. Unclear etiology (stress? faustina's dz?) Hypothyroidism (acquired) Left foot pain Baxters neuritis-Dr Apodaca Low back pain Tremor Trochanteric bursitis of both hips Surgical History Surgical History Biopsy of breast LEFT Endometrial Biopsy (05/19/10) SALPINGECTOMY; B/L with removal of the hydrosalpinx (08/24/15) Status post incision and drainage (~08/26/19) Left LE hematoma Status post vaginal hysterectomy Tobacco Smoking/Tobacco Use Status: Never Alcohol Alcohol Intake: current Alcohol intake frequency: holidays/special occasions only Alcohol type: hard liquor Substance Use Substance use: Never Substance use type: does not use Vital Signs and Lab Results Vital Signs Most Recent Vital Signs in EMR: Most Recent Vital Signs Temp Pulse Resp BP Pulse Ox 36.2 C L 70 18 134/69 99 12/14/21 11:12 12/14/21 11:12 12/14/21 11:12 12/14/21 11:12 12/14/21 11:12 Lab Results Blood Type / Crossmatch: No Data to Display Complete Blood Count: No Data to Display Complete Metabolic Panel: No Data to Display Liver Function Panel: No Data to Display Coagulation Panel: No Data to Display Cardiac Panel: No Data to Display Arterial Blood Gas: No Data to Display Venous Blood Gas: No Data to Display Pancreas Panel: No Data to Display Thyroid Panel: No Data to Display Infectious Disease: No Data to Display Blood Cultures: No Data to Display Toxicology Panel: No Data to Display Imaging and Studies Imaging and Studies Study information below may be from another EMR and interpreted by another provider. Please see original notes in EMR for more complete details. EKG Summary: DATE/TIME OF SERVICE: 01/16/21 1435 : 1965PERFORMING LOCATION: ER APPROVED REPORT Exam: Resting ECG Reason for Exam: chest pain Patient Location: E HR:76 bpm ECG Measurements Heart Rate 76 AXIS AZ 155 P 72 QRSd 95 QRS 67 QT 386 T7 QTc 435 Conclusion Sinus rhythm...normal P axis, V-rate 60- 99 Left atrial enlargement...P, P'>60mS, <-0.15mV V1 Stress Test Summary: 01/24/21: Stress ECG Conclusion 1. The resting electrocardiogram was within normal limits 2. Patient exercised on the Perez protocol, completing a workload of 5 METS. Below average exercise tolerance 3. Normal blood pressure response to exercise. Rapid heart rate response to exercise suggests deconditioning. Patient achieved 90% of predicted heart rate for age 4. Electrocardiographically there was no evidence of myocardial ischemia 5. Atrial premature beats and atrial triplets were noted Teixeira Treadmill Score is -4 which is Moderate risk. Anesthesia Assessment and Plan Anesthesia History Personal History: No History of Anesthesia Complications Family History: No Family History of Anesthesia Complications Exercise Tolerance Exercise Tolerance: Metabolic Equivalents>4 Cardiac & Pulmonary Exam Cardiac Exam: Normal S1/S2 Heart Sounds and Heart Murmur Present Pulmonary Exam: Clear Bilateral Breath Sounds Implantable Cardiac Device Does patient have a Pacemaker or an ICD?: No Airway Exam Known Difficult Airway: No Mallampati Class: 2 Mouth Opening: Normal (> 3cm) Thyromental Distance: Greater than 3 cm Neck Range of Motion: Full ROM Neck Circumference: Normal Teeth Condition: Normal Dentition ASA Classification ASA Score: ASA 2 Emergency Case?: No NPO Status NPO Status: NPO Clears >2 hours, Solids >8 hours Anesthesia Plan Resuscitation Status: Full Code Anesthesia Technique: General Anesthesia Airway Planned: LMA Monitors Used: Standard Monitors Preoperative Comments:: History of Addisons disease, came with letter from strike planning applications. 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 We will give 50mg stress dose hydrocortisone prior to surgery and will likely not give additional 50mg hydrocortisone over 8 hours given that she will be going home before that. She will take her 10mg prednisone as recommended. Pt. agrees with this plan and states her Addisons has been pretty well controlled and is due to followup again in March.
--- NOTE | 2021-12-14 12:45 | DI.RAD_ITS ---
Exam(s) XR HIP RT IN OR EXAM: XR HIP RT IN OR CLINICAL HISTORY: trochanteric bursitis, iliotibial band syndrome TECHNIQUE: 2D and realtime digital imaging was performed. CONTRAST MATERIAL: Refer to procedure report. COMPARISON: No exams were available for comparison FINDINGS: Fluoroscopy was provided for Dr. Quiles during the performance of a right hip injection. Please refe r to the procedure report for complete details. Ka,r=1.48 mGy IMPRESSION: RADIATION DOSE DELIVERED:
[2021-12-14] MEDS: ceFAZolin 2 GM/50 ML BAG IVPB (13:36)
[2021-12-14] MEDS: Bupivacaine 0.5% Pres-Free W/EPI 30 ML VIAL (14:05)
[2021-12-14] MEDS: EPINEPHrine 30 MG/30 ML VIAL (14:21)
--- NOTE | 2021-12-14 15:00 | ROE_ITS ---
Operative Note Operative Note DATE OF PROCEDURE: 12/14/21 PRE-OP DIAGNOSIS: Right 1. Iliotibial band syndrome 2. Trochanteric bursitis 3. Gluteal tendon tear POST-OP DIAGNOSIS: same PROCEDURE: Right hip endoscopic iliotibial band release (CPT# 61275), trochanteric bursectomy (CPT# 72598), and gluteal tendon repair (CPT# 21002) SURGEON: Valentino Quiles PROTECTIVE SIGNAL REPAIRER HELPER: Ana Ontiveros ANESTHESIA TYPE: Local By Surgeon and General LMA/ETT Refer to Anesthesia Record ESTIMATED BLOOD LOSS: 15 COMPLICATIONS: None Patient was transported to: PACU Patient's condition: stable Implants: [employer] bio composite knotless SwiveLock 5.5mm x2 Indications: Please see complete medical record for details. Findings: Tight iliotibial band. Abundant inflamed trochanteric bursitis. Large, chronic?appearing gluteus medius high?grade tearing continuing into full- thickness chronic?appearing gluteus minimus tearing. Largely balled anterior and lateral greater trochanter with chronic fibrinous bone changes. Procedure Description: In the operating room, general anesthesia was induced. The patient was positioned supine on the [place] operating room table. All bony prominences were well-padded. Preoperative antibiotics were administered. The hip was prepped and draped in the usual sterile fashion. The correct patient, procedure, and side of the procedure were all verified prior to incision. 30 cc of 0.25% bupivacaine containing epinephrine was infiltrated about the subcutaneous tissues for the planned anterior lateral and distal anterolateral portals as well as deeply over the greater trochanter. A knife was used to incise the skin for the anterior lateral and distal anterolateral portals followed by blunt dissection subcutaneously. Under fluoroscopic guidance, a switching stick and arthroscope were inserted localizing the iliotibial band over the greater trochanter. Blunt dissection and the mechanical shaver were used to resect fat and overlying tissue about the center of the iliotibial band and carefully expose the anterior and posterior margins. Once there was adequate exposure of the IT band, the greater trochanter was again localized under fluoroscopic guidance with a spinal needle inserted through the skin down to bone. This central area was marked using the radiofrequency ablator. A [place] blade was brought in and used to create a 2 cm longitudinal incision in line with the IT band fibers as well as extending it in a cruciate fashion with 2 cm incisions anteriorly and posteriorly. The radiofrequency ablator was used to achieve hemostasis. The mechanical shaver was then used to debride the IT band released edges exposing the trochanteric bursa. The mechanical shaver was then used to excise the trochanteric bursa taking care to protect musculature about the margins of the greater trochanter as well as neurovascular structures especially posteriorly. There was excellent visualization of the vastus lateralis as well as gluteus medius and minimus confirming appropriate bursa excision. The hip was brought through range of motion including internal and external rotation and there was no impinging iliotibial band tissue or remaining pathologic bursa. The viewing and working portals were switched and appropriate IT band release, trochanteric bursa excision, and hemostasis confirmed. There is a large gluteal tendon tear. Tissue was mobilized from proximal to distal and anterior to posterior to achieve reasonable tissue coverage over the greater trochanter. Tendon edges were debrided lightly to a more viable margin. Greater trochanter footprint was debrided to optimize bone tendon healing. Sta rting with the proximal tendon tear, the self retrieving suture passer was used to place a FiberTape inverted horizontal mattress centrally proximally and the gluteus medius just anterior to the intact remnant. The self retrieving suture passer then used to place a suture tape FiberLink cinched more anteriorly near the junction of the proximal anterior trochanter. The undersized punch and fluoroscopy were used to localize placement of a suture anchor. A 5.5 mm knotless anchor was loaded with these repair sutures and deployed with excellent tissue and bone fixation strength. The knotless repair suture was shuttled through tendon anterior to the anchor and used for additional repair and fixation. This was repeated more distally repair in the anterior tendon tear again passing an inverted horizontal mattress FiberTape and suture tape FiberLink repair stitches, which were loaded and deployed using arthroscopic and fluoroscopic guidance to a more distal and central 5.5 mm knotless SwiveLock anchor. The knotless repair suture was then shuttled proximally again to incorporate additional anterior tissue into the repair. The trochanter was inspected through range of motion and had significantly improved tissue coverage proximally and anteriorly. The tendon repair is stable on testing. Suction was used to remove fluid from the endoscopic space. The portals were closed using 3-0 Monocryl in a buried fashion. Steri-Strips were applied over the incisions followed by Xerofhakan, 4 x 4 gauze, an ABD pad, and secured with tape. The patient awoke from anesthesia without complication and was transferred to the recovery room in a stable condition.
[2021-12-14] MEDS: fentaNYL 100 MCG/2 ML VIAL IVP ×2 (15:59→16:15)
--- NOTE | 2021-12-14 16:12 | W.PM.DSUDISC ---
Discharge Plan Disposition Patient Disposition: HOME Condition: Stable Discharge Details Reason For Visit: Right hip surgery Attending Provider: Valentino Quiles Primary Care Provider: Mercedes Espinoza Home Meds and New Rx's Prescriptions: New naproxen 250 mg tablet 250 - 500 mg PO BID PRNQty: 40 0RF Rx Instructions: take with a meal oxycodone 5 mg tablet 5 - 10 mg PO Q4H MDD 30 mg PRN (Reason: moderate to severe pain) Qty: 18 0RF aspirin 81 mg tablet,delayed release (DR/EC) 81 mg PO DAILY 14 Days Qty: 14 0RF Continued fluticasone propionate 50 mcg/actuation spray,suspension 2 spray REGINE BID Qty: 16 0RF Rx Instructions: administer into each nostril buspirone 15 mg tablet 15 mg PO BID Qty: 180 3RF albuterol sulfate [ProAir HFA] 90 mcg/actuation HFA aerosol inhaler 2 puff Inhalation Q4H PRN Qty: 3 3RF fluticasone propion-salmeterol [Advair Diskus] 500-50 mcg/dose blister with device 1 inh Inhalation BID Qty: 3 3RF gabapentin 300 mg capsule See Rx Instructions PO DAILY Qty: 180 3RF Rx Instructions: 600mg qHS, with 300mg after work prn burning pain orally daily; fludrocortisone 0.1 mg tablet 0.1 mg PO DAILY Label Comments: [facility] magnesium oxide 400 mg capsule 400 mg PO DAILY prednisone 1 mg tablet 2 mg PO DAILY PRN (Reason: fatigue) Qty: 20 1RF prednisone 10 mg tablet 6 mg PO DAILY Rx Instructions: Taking 4.5mg QAM, 1mg Qnoon, 0.5mg Q5pm. (Maintenance dose of 6mg total/day.) 11/10/20 EO magic mouthwash 15 ml PO TID Qty: 500 1RF Rx Instructions: Trial Swish & Spit x 10 days Diphenhydramine (200mL)+Maalox(200mL)+Viscous Lidocaine(100mL) multivitamin 1 EACH tablet 1 tab PO DAILY cholecalciferol (vitamin D3) [Vitamin D3] 1,000 UNIT capsule 1,000 unit PO DAILY cyanocobalamin (vitamin B-12) [Vitamin B-12] 1,000 mcg tablet extended release 1,000 mcg PO DAILY omeprazole 20 mg capsule,delayed release(DR/EC) 20 mg PO DAILY Qty: 90 1RF cetirizine [Zyrtec] 10 mg tablet 10 mg PO DAILY Qty: 90 3RF Solu-Cortef 100 mg recon soln See Rx Instructions IM Q12H Rx Instructions: as directed for emergency usage per note dated 10/10/21 cc levothyroxine 88 mcg tablet 88 mcg PO DAILY Rx Instructions: note dated 10/10/21 [facility] [place] [facility] [place] Additional Instructions: Surgery: Right hip endoscopic iliotibial band release, trochanteric bursectomy, and gluteal tendon repair Activity: Protected weightbearing with a walker for 6 weeks. Gentle hip range of motion. No strengthening for 3 months. A physical therapy prescription will be provided separately in the office at follow-up. Prescriptions: Aspirin 81 mg take 1 daily to prevent a blood clot for 2 weeks Naproxen 250 mg take 1-2 every 12 hours with a meal as needed for moderate pain Oxycodone 5 mg take 1-2 every 4-6 hours as needed for severe pain You may use [id number] Tylenol (acetaminophen) as needed for mild pain. These pain medications may be taken all at once or in different combinations as needed. Also, recommend Colace (docusate) as a stool softener as surgery and pain medicine cause constipation. You may try vfzu-uqi-tghzmfe diphenhydramine (Benadryl) 25-50 mg nightly as a sleep aid Dressings: Leave dressing in place for 3 days. May then remove and leave open to air or cover incisions with Band-Aids. May shower after 5 days. Follow-up: 10-[address] Quiles Let us know right away if you develop any redness, drainage, fevers, chest pain, or trouble breathing. Do not drink alcohol or drive for at least 24 hours after anesthesia. Please call the office during business hours with any questions or concerns. Discharge Orders Discharge Orders: Discharge Order (Routine); Ordered 12/14/21 Ordered By: Valentino Quiles DS: Diagnosis Discharge Diagnosis (1) Trochanteric bursitis, right hip: Status: Acute
[2021-12-14] MEDS: oxyCODONE 5 MG TAB PO (16:30)
--- NOTE | 2021-12-14 16:31 | W.ANESPOSTOP ---
Postoperative Evaluation Date, Time and Location Date Performed: 12/14/21 Time Performed: 16:32 Patient Location: Day Surgery Unit Vital Signs Most Recent Imported Vital Signs: Most Recent Vital Signs Temp Pulse Resp BP Pulse Ox 36.1 C L 56 L 18 130/72 97 12/14/21 16:22 12/14/21 16:22 12/14/21 16:22 12/14/21 16:22 12/14/21 16:22 Pain Score Most Recent Pain Score: Most Recent Pain Score Pain Level 3 12/14/21 16:22 Assessment Mental Status: Awake (Alert & Oriented to Patient Baseline) Airway and Respiratory Function: Patent airway with normal (patient baseline) respiratory exam Cardiovascular Function: Hemodynamically Stable Hydration Status: Adequately Hydrated Nausea & Vomiting: No Nausea or Vomiting Pain: Pain is tolerable per patient Peripheral Nerve Block: Patient did not receive a nerve block
[2021-12-14] MEDS: Ondansetron O.D.T. 4 MG TABEF (17:44)
== END 2021-12-14 17:49 | disposition home or self-care (01) ==
PROVIDERS: PCP Student in an Organized Health Care Education/Training Program; Visit Provider Student in an Organized Health Care Education/Training Program
PROC: (CPT 29863; principal; 2021-12-14 12:00)
DX: M70.61 Trochanteric bursitis, right hip (principal); M76.31 Iliotibial band syndrome, right leg; S76.011A Strain of muscle, fascia and tendon of right hip, initial encounter; E03.9 Hypothyroidism, unspecified; X58.XXXA Exposure to other specified factors, initial encounter
CPT/HCPCS: 27062; 27305; 27006; 73501; J0690; J1100; J1720; J1885; J2405; J2704; J3010

== ENCOUNTER 2021-12-29 02:04 | Outpatient (CLI) | payer OTHER, SELFPAY ==
[2021-12-29 10:37] LABS: Anion Gap 5.9 mmol/L (3-11); BUN 22 mg/dL (7-18); CO2 29.1 mmol/L (21.0-32.0); CREATININE 1.2 mg/dL (0.55-1.02); Calcium 9.2 mg/dL (8.5-10.1); Chloride 104 mmol/L (98-107); Estimated GFR 53.46 (mL/min/1.73m2); Glucose 116 mg/dL (74-106); Magnesium 1.9 mg/dL (1.8-2.4); Sodium 139 mmol/L (136-145); TSH (W/Ref FT4) 0.79 uIU/mL (0.36-3.74)
== END 2021-12-29 02:05 | disposition home or self-care (01) ==
LOC: LBO 02:05
PROVIDERS: PCP Student in an Organized Health Care Education/Training Program; Visit Provider Student in an Organized Health Care Education/Training Program
DX: E87.8 Other disorders of electrolyte and fluid balance, not elsewhere classified (principal); R79.89 Other specified abnormal findings of blood chemistry; E03.9 Hypothyroidism, unspecified; E27.1 Primary adrenocortical insufficiency
CPT/HCPCS: 36415; 80048; 83735; 84443

== ENCOUNTER 2022-01-05 02:06 | Outpatient (CLI) | payer OTHER, SELFPAY ==
[2022-01-05 13:00] LABS: Anion Gap 10.9 mmol/L (3-11); BUN 16 mg/dL (7-18); CO2 27.1 mmol/L (21.0-32.0); CREATININE 0.9 mg/dL (0.55-1.02); Chloride 106 mmol/L (98-107); Glucose 149 mg/dL (74-106); Potassium 3.7 mmol/L (3.5-5.1); Sodium 144 mmol/L (136-145)
[2022-01-05 13:10] LABS: Hemoglobin A1C 5.9 % (<5.7)
== END 2022-01-05 02:07 | disposition home or self-care (01) ==
LOC: LBO 02:06
PROVIDERS: PCP Student in an Organized Health Care Education/Training Program; Visit Provider Student in an Organized Health Care Education/Training Program
DX: R73.09 Other abnormal glucose (principal); R79.89 Other specified abnormal findings of blood chemistry
CPT/HCPCS: 36415; 80048; 83036

== ENCOUNTER 2022-03-07 02:06 | Outpatient (CLI) | payer OTHER, SELFPAY ==
[2022-03-07 12:52] LABS: BUN 14 mg/dL (7-18); Calcium 8.9 mg/dL (8.5-10.1); Chloride 106 mmol/L (98-107); Estimated GFR 66.53 (mL/min/1.73m2); Glucose 92 mg/dL (74-106); Magnesium 1.9 mg/dL (1.8-2.4); Potassium 3.7 mmol/L (3.5-5.1); Sodium 143 mmol/L (136-145)
== END 2022-03-07 02:07 | disposition home or self-care (01) ==
LOC: LBO 02:06
PROVIDERS: PCP Student in an Organized Health Care Education/Training Program; Visit Provider Student in an Organized Health Care Education/Training Program
DX: E27.1 Primary adrenocortical insufficiency (principal); R73.09 Other abnormal glucose; Z92.241 Personal history of systemic steroid therapy; E03.9 Hypothyroidism, unspecified
CPT/HCPCS: 36415; 80048; 83735

== ENCOUNTER 2022-05-10 02:56 | Outpatient (CLI) | payer OTHER, SELFPAY ==
[2022-05-10 12:33] LABS: Magnesium 1.8 mg/dL (1.8-2.4)
== END 2022-05-10 02:57 | disposition home or self-care (01) ==
LOC: LBO 02:56
PROVIDERS: PCP Student in an Organized Health Care Education/Training Program; Visit Provider Student in an Organized Health Care Education/Training Program
DX: E03.9 Hypothyroidism, unspecified (principal); E27.1 Primary adrenocortical insufficiency; Z91.89 Other specified personal risk factors, not elsewhere classified
CPT/HCPCS: 36415; 83735

== ENCOUNTER 2022-07-09 01:22 | Outpatient (CLI) | payer OTHER, SELFPAY ==
[2022-07-09 15:23] LABS: Hemoglobin A1C 5.6 % (<5.7)
[2022-07-09 15:44] LABS: Anion Gap 11.3 mmol/L (3-11); BUN 17 mg/dL (7-18); CO2 25.7 mmol/L (21.0-32.0); CREATININE 1.1 mg/dL (0.55-1.02); Calcium 9.3 mg/dL (8.5-10.1); Chloride 105 mmol/L (98-107); Estimated GFR 58.97 (mL/min/1.73m2); Glucose 97 mg/dL (74-106); Sodium 142 mmol/L (136-145); TSH (W/Ref FT4) 0.25 uIU/mL (0.36-3.74)
[2022-07-09 16:19] LABS: FREE T4 1.04 ng/dL (0.76-1.46)
== END 2022-07-09 01:23 | disposition home or self-care (01) ==
LOC: LBO 01:23
PROVIDERS: PCP Student in an Organized Health Care Education/Training Program; Visit Provider Student in an Organized Health Care Education/Training Program
DX: E04.2 Nontoxic multinodular goiter (principal); E27.1 Primary adrenocortical insufficiency; R73.09 Other abnormal glucose
CPT/HCPCS: 36415; 80048; 83036; 84439; 84443

== ENCOUNTER 2022-07-25 00:49 | Outpatient (CLI) | payer OTHER, SELFPAY ==
--- NOTE | 2022-07-25 06:33 | DI.RAD_ITS ---
Exam(s) XR ARTHRITIS SERIES EXAM: XR ARTHRITIS SERIES CLINICAL HISTORY: evaluate for OA, RA, new bony path,bilat hand swelling,m79.89. TECHNIQUE: 2D digital imaging was performed. One view of both hands. COMPARISON: CR XR HAND LT COMPLETE from 09/06/2020 FINDINGS: BONES: No acute fracture is present. No bony destructive lesion is seen. Bones are normally minerali zed. JOINTS: No dislocation present. Minimal joint space narrowing minimal periarticular spurring involvi ng the interphalangeal joints of the left hand. Interphalangeal joints of the right hand are not wel l profiled due to finger flexion.. SOFT TISSUE: Normal. IMPRESSION: Mild degenerative changes of the interphalangeal joints of fingers. No findings to suggest rheumatoi d arthritis. DATA REPOSITORY: RADIATION DOSE DELIVERED:
== END 2022-07-25 01:09 ==
LOC: DI 00:50
PROVIDERS: PCP Student in an Organized Health Care Education/Training Program; Visit Provider Student in an Organized Health Care Education/Training Program
DX: M19.042 Primary osteoarthritis, left hand (principal); R22.33 Localized swelling, mass and lump, upper limb, bilateral
CPT/HCPCS: 73120

== ENCOUNTER → 2022-12-31 04:08 | Outpatient (CLI) | payer OTHER, SELFPAY ==
--- NOTE | 2022-12-31 09:00 | DI.RAD_ITS ---
Exam(s) XR FOOT RT COMPLETE EXAM: XR FOOT RT COMPLETE CLINICAL HISTORY: rt foot pain,M79.671. TECHNIQUE: 2D digital imaging was performed of the right foot. Three images were obtained. AP, obl ique and lateral views were obtained. COMPARISON: CR XR FOOT RT COMPLETE from 11/01/2021 FINDINGS: BONES: No acute fracture is present. No bony destructive lesion is seen. JOINTS: No dislocation present. The joint spaces are well maintained. SOFT TISSUE: Normal. IMPRESSION: Unremarkable radiographs of the right foot. DATA REPOSITORY: RADIATION DOSE DELIVERED:
--- NOTE | 2022-12-31 09:00 | DI.RAD_ITS ---
Exam(s) XR FOOT LT COMPLETE EXAM: XR FOOT LT COMPLETE CLINICAL HISTORY: lt foot pain,M79.672. TECHNIQUE: 2D digital imaging was performed of the left foot. Three images were obtained. AP, obli que and lateral views were obtained. COMPARISON: CR XR FOOT LT COMPLETE from 11/01/2021 FINDINGS: BONES: No acute fracture is present. No bony destructive lesion is seen. JOINTS: No dislocation present. The joint spaces are all well maintained. SOFT TISSUE: Normal. IMPRESSION: Unremarkable radiographs of the left foot. DATA REPOSITORY: RADIATION DOSE DELIVERED:
== END ==
PROVIDERS: PCP Student in an Organized Health Care Education/Training Program; Visit Provider Podiatrist
DX: M79.672 Pain in left foot (principal); M79.671 Pain in right foot
CPT/HCPCS: 73630

== ENCOUNTER 2023-01-28 03:58 | Outpatient (CLI) | payer OTHER, SELFPAY ==
[2023-01-28 15:54] LABS: Anion Gap 7.7 mmol/L (3-11); BUN 24 mg/dL (7-18); CO2 29.3 mmol/L (21.0-32.0); CREATININE 1.1 mg/dL (0.55-1.02); Calcium 9.8 mg/dL (8.5-10.1); Chloride 103 mmol/L (98-107); Estimated GFR 58.97 (mL/min/1.73m2); Glucose 108 mg/dL (74-106); Potassium 4.3 mmol/L (3.5-5.1); Sodium 140 mmol/L (136-145); TSH (W/Ref FT4) 0.47 uIU/mL (0.36-3.74)
[2023-01-28 17:16] LABS: Folate > 20.0 ng/mL (8.6-20.0); Vitamin B12 > 2000 pg/mL (193-986)
[2023-01-28 18:25] LABS: Vitamin D 25 Total 91.4 ng/mL (30-100)
== END 2023-01-28 03:59 | disposition home or self-care (01) ==
LOC: LBO 03:58
PROVIDERS: Absent Provider Student in an Organized Health Care Education/Training Program; PCP Student in an Organized Health Care Education/Training Program; Referring Provider Student in an Organized Health Care Education/Training Program; Visit Provider Student in an Organized Health Care Education/Training Program
DX: E34.9 Endocrine disorder, unspecified (principal); E46 Unspecified protein-calorie malnutrition; E53.8 Deficiency of other specified B group vitamins; I10 Essential (primary) hypertension; K90.9 Intestinal malabsorption, unspecified; G62.9 Polyneuropathy, unspecified; Z74.09 Other reduced mobility; Z78.9 Other specified health status
CPT/HCPCS: 36415; 80048; 82306; 82607; 82746; 84443; 85018

== ENCOUNTER 2023-02-01 17:31 | Outpatient (REF) | payer OTHER, SELFPAY ==
[2023-02-01 21:10] LABS: Bilirubin Negative (Negative); Blood Negative (Negative); Clarity Cloudy (Clear); Glucose Negative (Negative); Ketones Trace mg/dL (Negative); Leukocyte Esterase Trace (Negative); Nitrite Negative (Negative); Specific Gravity 1.025 (1.005-1.025); Urobilinogen 0.2 mg/dL (Up to 0.2); pH 5.5 (5-8)
[2023-02-01 21:24] LABS: Epithelial Cells Few HPF (Negative); RBC 0-2 HPF (0-2)
[2023-02-01 21:25] LABS: Bacteria Many HPF (Negative); C & S Indicated? C&S Done As Ordered; Casts Negative LPF (Negative); Crystals Negative HPF (Negative); Mucus Negative (Negative)
== END 2023-02-01 17:32 | disposition home or self-care (01) ==
LOC: LBN 17:31
PROVIDERS: PCP Student in an Organized Health Care Education/Training Program; Visit Provider Physician Assistant
DX: N39.0 Urinary tract infection, site not specified (principal); R39.89 Other symptoms and signs involving the genitourinary system
CPT/HCPCS: 81003; 81015; 87086

== ENCOUNTER 2023-02-04 18:21 | Emergency (ER) | payer OTHER, SELFPAY ==
[2023-02-04 18:31] VITALS: BP 137/84; PULSE 74; RESP 16; TEMP 36.8; O2SAT 98
--- NOTE | 2023-02-04 19:00 | DI.CT_ITS ---
Exam(s) CT ABDOMEN PELVIS W EXAM: CT ABDOMEN PELVIS W CLINICAL HISTORY: abdominal pain TECHNIQUE: Imaging Protocol: Axial computed tomography images with coronal and sagittal reformatted images were created and reviewed CONTRAST MATERIAL: Intravenous: Omnipaque 350 Contrast volume:100 mL Oral: No COMPARISON: CT PELVIC/LOWER ABD WITHOUT CONT from 12/18/2014 CT CTA ABDOMEN from 12/18/[address] RENAL COLIC WO from 09/05/2021 FINDINGS: ABDOMEN: Lung Bases: Normal where visualized. Liver: Normal density. No measurable mass. Portal, Superior Mesenteric, and Splenic Veins: Unremarkable. Gallbladder and Biliary Tract: No radiodense calculus or dilation. Pancreas: Normal density, no abnormal calcifications or inflammatory process. There is 8 mm cyst agai n seen in the body of the pancreas. Spleen: Normal. Adrenals: No masses seen. Kidneys: Normal size, contour and axis. No radiodense stones or obstructive uropathy. There is a 1.8 cm hypodense lesion in the medial aspect of the right kidney. Abdominal Aorta: Abdominal portion non-dilated. Atherosclerosis. Bowel: No obstruction or bowel wall thickening. No evidence of appendicitis. Peritoneal Cavity: No ascites, collection or mesenteric inflammatory response. No free air. Lymph Nodes: Within normal limits. Bones: Within normal limits for the patient's age. Soft Tissues: There is a small fat containing umbilical hernia. There is mild fatty atrophy of the r ight gluteal muscles. PELVIS: Bladder: Symmetric distention, no gross wall thickening. Reproductive Organs: Status post hysterectomy. Lymph Nodes: Within normal limits. Bones: Within normal limits for the patient's age. IMPRESSION: 1. 1.8 cm hypodense lesion in the medial aspect of the right kidney. It does not meet the criteria f or simple cyst. An MRI of the kidneys is recommended for further evaluation. 2. 8 mm cyst in the body of the pancreas. This was present on the CT scan from 09/05/2021. An MRI sh ould be considered for further evaluation. 3. No definite acute abdominal or pelvic process. Unexpected findings RADIATION DOSE DELIVERED: Total DLP DATA REPOSITORY: All CT scans at this facility are submitted to the National Radiology Data Registry (NRDR) Dose Index Registry (DIR) with the [employer] (A[employer]). RADIATION OPTIMIZATION: All CT scans at this facility use at least one of these dose optimization te chniques: automated exposure control; mA and/or kV adjustment per patient size (includes targeted exa ms where dose is matched to clinical indication); or iterative reconstruction.
[2023-02-04 19:23] LABS: Lactate 1.1 mmol/L (0.6-1.4)
[2023-02-04 19:26] LABS: Abs Immature Grans 0.08 10^3/uL (0.0-0.06); Absolute Basophil Count 0.03 10^3/uL (0.0-0.2); Absolute Eosinophil Count 0.02 10^3/uL (0.0-0.7); Absolute Monocyte Count 0.94 10^3/uL (0.1-0.8); Absolute Neutrophil Count 7.79 10^3/uL (1.2-6.7); Basophils % 0.3; Eosinophils % 0.2; HCT 41.6 % (36.0-46.0); HGB 14.1 g/dL (11.2-15.7); Immature Grans % 0.7; Lymphocytes % 19.9; MCH 30.8 pg (27.0-33.0); MCHC 33.9 % (32.0-36.0); MCV 91 fL (80-95); MPV 8.9 fL (8.0-11.0); Monocytes % 8.5; Neutrophils % 70.4; Platelet Count 311 10^3/uL (130-400); RBC 4.58 10^6/uL (3.93-5.22); RDW 13.9 % (11.7-14.6); RDW-SD 45.7 fL; WBC 11.06 10^3/uL (4.4-10.8)
[2023-02-04] MEDS: Normal Saline 1,000 ML 1000 ML IV (19:27)
[2023-02-04] MEDS: Ondansetron 4 MG/2 ML VIAL IVP (19:28)
[2023-02-04] MEDS: Pantoprazole 40 MG VIAL IVP (19:28)
[2023-02-04 19:35] VITALS: BP 137/84; PULSE 74; RESP 16; TEMP 36.8; O2SAT 98
[2023-02-04 19:40] LABS: ALT 43 U/L (14-59); AST 18 U/L (15-37); Albumin 4.2 g/dL (3.4-5.0); Alkaline Phosphatase 73 U/L (46-116); Anion Gap 9.2 mmol/L (3-11); BUN 23 mg/dL (7-18); Bilirubin, Total 0.3 mg/dL (0.2-1.0); CO2 27.8 mmol/L (21.0-32.0); CREATININE 1.5 mg/dL (0.55-1.02); Calcium 9.8 mg/dL (8.5-10.1); Chloride 99 mmol/L (98-107); Estimated GFR 40.65 (mL/min/1.73m2); Glucose 90 mg/dL (74-106); Lipase 55 U/L (16-77); Magnesium 2.4 mg/dL (1.8-2.4); Potassium 3.6 mmol/L (3.5-5.1); Sodium 136 mmol/L (136-145)
[2023-02-04] MEDS: Omnipaque 350 MG/ML 100 ML BTL IJ (19:52)
--- NOTE | 2023-02-04 20:34 | DI.VRAD_ITS ---
PROCEDURE INFORMATION: Exam: CT Abdomen And Pelvis With Contrast Exam date and time: 02/04/2023 7:51 PM Age: 57 years old Clinical indication: Abdominal pain TECHNIQUE: Imaging protocol: Computed tomography of the abdomen and pelvis with contrast. COMPARISON: CR XR HIP RT COMPLETE AP PELVIS 11/15/2021 11:25 AM FINDINGS: Liver: Unremarkable. No mass. Gallbladder and bile ducts: No calcified stones. No ductal dilation. Pancreas: Unremarkable. No ductal dilation. Spleen: Unremarkable. No splenomegaly. Adrenal glands: Normal. No mass. Kidneys and ureters: Heterogeneous enhancement of the right renal cortex, can not rule out pyelonephritis, correlate clinically. Stomach and bowel: Unremarkable. No obstruction. No mucosal thickening. Appendix: No evidence of appendicitis. Intraperitoneal space: No free air. No significant fluid collection. Vasculature: No abdominal aortic aneurysm. Lymph nodes: No enlarged lymph nodes. Urinary bladder: Unremarkable as visualized. Reproductive: Uterus is not identified. Bones/joints: Degenerative changes within lumbar spine. Soft tissues: The abdomen is obese. IMPRESSION: 1. Heterogeneous enhancement of the right renal cortex, correlate clinically, can not rule out pyelonephritis/UTI. Otherwise, kidneys unremarkable. 2. The remainder of the exam demonstrates no acute abnormality. Dictated and Authenticated by: Kodak Covarrubias MD. Ordering:[facility] Moreno Owens MD
[2023-02-04 20:50] LABS: Bilirubin Negative (Negative); Blood Negative (Negative); Clarity Clear (Clear); Glucose Negative (Negative); Ketones Negative (Negative); Leukocyte Esterase Negative (Negative); Nitrite Negative (Negative); Urobilinogen 0.2 mg/dL (Up to 0.2)
[2023-02-04 21:51] VITALS: BP 127/90; PULSE 68; RESP 15; O2SAT 99
[2023-02-04 21:59] VITALS: BP 127/90; PULSE 68; RESP 15; TEMP 36.8; O2SAT 99
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
== END 2023-02-04 22:00 | disposition home or self-care (01) ==
PROVIDERS: Emergency Provider Emergency Medicine; PCP Student in an Organized Health Care Education/Training Program
DX: R10.84 Generalized abdominal pain (principal); D72.829 Elevated white blood cell count, unspecified; M35.3 Polymyalgia rheumatica; E27.1 Primary adrenocortical insufficiency; E03.9 Hypothyroidism, unspecified; Z79.899 Other long term (current) drug therapy
CPT/HCPCS: 80053; 83690; 96361; 96374; 96375; 99285; 74177; 81003; 83605; 83735; 85025; 99284; J2405; J3490

== ENCOUNTER 2023-02-20 02:54 | Outpatient (CLI) | payer OTHER, SELFPAY ==
[2023-02-20 14:43] LABS: Anion Gap 8.7 mmol/L (3-11); BUN 15 mg/dL (7-18); CO2 28.3 mmol/L (21.0-32.0); CREATININE 1.1 mg/dL (0.55-1.02); Calcium 8.8 mg/dL (8.5-10.1); Chloride 104 mmol/L (98-107); Estimated GFR 58.97 (mL/min/1.73m2); Glucose 118 mg/dL (74-106); Potassium 3.8 mmol/L (3.5-5.1); Sodium 141 mmol/L (136-145)
== END 2023-02-20 02:55 | disposition home or self-care (01) ==
LOC: LBO 02:54
PROVIDERS: Absent Provider Student in an Organized Health Care Education/Training Program; PCP Student in an Organized Health Care Education/Training Program; Referring Provider Student in an Organized Health Care Education/Training Program; Visit Provider Student in an Organized Health Care Education/Training Program
DX: R79.89 Other specified abnormal findings of blood chemistry (principal); R93.429 Abnormal radiologic findings on diagnostic imaging of unspecified kidney
CPT/HCPCS: 36415; 80048

== ENCOUNTER → 2023-04-03 01:37 | Outpatient (CLI) | payer OTHER, SELFPAY ==
--- NOTE | 2023-04-03 07:15 | DI.MRI_ITS ---
Exam(s) MR ABDOMEN WO/W EXAM: MR ABDOMEN WO/W CLINICAL HISTORY: ? cysts,F/u CT (02/04/23 09/05/21)pancreas and renal,abnl ct,r93.89 TECHNIQUE: Multiplanar multisequence MRI was performed with both pre and post contrast infused seque nces. Contrast injected sequences were performed following IV injection of 17 cc of Dotarem. COMPARISON: CT CTA ABDOMEN from 12/18/[address] RENAL COLIC WO from 09/05/[address] ABDOMEN PELVIS W from 02/04/2023 FINDINGS: VISUALIZED LUNG BASES: No pleural effusions evident. There is no ascites evident. LIVER: Liver size is normal. There are no sys discrete focal hepatic lesions nor dilatation of intra hepatic ducts. BILIARY: There is no obvious gallbladder pathology. The CBD is not dilated. PANCREAS: There is a cystic lesion in the pancreatic body which measures 1 cm AP by 0.7 cm wide by 9 cm cephalocaudal, exhibiting internal septation and no obvious internal enhancement following contras t injection.There is no dilatation of the pancreatic duct. No peripancreatic fluid nor regional lymp hadenopathy. SPLEEN: Spleen is not enlarged and there are no intrasplenic lesions.Splenic and portal veins are pat ent ADRENALS: There are no significant adrenal masses. KIDNEYS: Left kidney unremarkable.There is a finding in the medial cortex of the right kidney corresp onding to what is seen on recent CT scan and appears to have slightly decreased in size from CT scan of August 2021. It presently measures 1.8 cm AP (previously measured 2.4 cm AP) by 1.8 cm wide (previo usly measured 1.9 cm wide) by 1.9 cm cephalocaudal (previously measured 2.5 cm craniocaudal. This fi nding exhibits homogeneous internal signal not characteristic of simple cyst. However, the appearanc e appears to be that of a hemorrhagic cyst. It does not exhibit title enhancement following contrast injection. There are no other focal renal findings. No hydronephrosis. ABDOMINAL AORTA: Not enlarged and there is no significant para-aortic adenopathy. ANTERIOR ABDOMINAL WALL/GI: There is no evidence of significant anterior abdominal wall hernia in the field of view of this study.Is no evidence of obvious bowel obstruction. OSSEOUS: There are no lytic osseous lesions in the field of view of this study. IMPRESSION: 1. Finding in the medial cortex of the right kidney as described above which most probably is a hemor rhagic cyst. It has decreased in size when compared to prior CT scan of 09/05/2021. It was also tez wn to be a simple benign cyst on CT scan of December 2014, at that time measuring 3.5 cm AP by 2.4 cm wide by 3.5 cm cephalocaudal. 2. There is a slightly lobulated and septated cystic lesion in the body of the pancreas measuring 10 x 7 x 9 mm, not present on prior CT scan of 2014 but unchanged in size from CT scan of 09/05/2021. T he pancreatic duct is not dilated there is no extra pancreatic extension nor regional adenopathy. 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 3. Recommend repeat MRI scan in 6 months to ensure stability of the 2 above described findings DATA REPOSITORY:
[2023-04-03] MEDS: Normal Saline - Diluent 50 ML VIAL 25 ML IJ (08:03)
[2023-04-03] MEDS: Gadoterate meglumine 20 ML VIAL 17 ML IVP (08:04)
== END ==
PROVIDERS: PCP Student in an Organized Health Care Education/Training Program; Visit Provider Student in an Organized Health Care Education/Training Program
DX: K86.2 Cyst of pancreas (principal); N28.1 Cyst of kidney, acquired; R93.89 Abnormal findings on diagnostic imaging of other specified body structures
CPT/HCPCS: 74183

== ENCOUNTER 2023-07-26 02:40 | Outpatient (CLI) | payer OTHER, SELFPAY ==
[2023-07-26 14:57] LABS: Anion Gap 11.2 mmol/L (3-11); BUN 16 mg/dL (7-18); CO2 22.8 mmol/L (21.0-32.0); Calcium 8.5 mg/dL (8.5-10.1); Chloride 108 mmol/L (98-107); Estimated GFR 65.71 (mL/min/1.73m2); Glucose 113 mg/dL (74-106); Potassium 4.1 mmol/L (3.5-5.1); Sodium 142 mmol/L (136-145); TSH (W/Ref FT4) 0.19 uIU/mL (0.36-3.74)
[2023-07-26 15:15] LABS: FREE T4 0.93 ng/dL (0.76-1.46)
== END 2023-07-26 02:41 | disposition home or self-care (01) ==
LOC: LBO 02:42
PROVIDERS: PCP Student in an Organized Health Care Education/Training Program; Visit Provider Student in an Organized Health Care Education/Training Program
DX: E03.9 Hypothyroidism, unspecified (principal); R73.09 Other abnormal glucose; I10 Essential (primary) hypertension; Z91.89 Other specified personal risk factors, not elsewhere classified
CPT/HCPCS: 36415; 80048; 84439; 84443

== ENCOUNTER → 2023-08-02 00:06 | Outpatient (CLI) | payer OTHER, SELFPAY ==
--- NOTE | 2023-08-02 14:30 | DI.US_ITS ---
APPROVED REPORT EXAM: Comprehensive 2D, Doppler, and color-flow Echocardiogram Patient Location: Out-Patient [facility] Secretary: Austin Tamez RDCS (AE) Indications: Eval heart function, SOB, dyspnea Conclusion Normal left ventricular wall thickness and chamber size. Ejection fraction is 65%. Wall motion is n ormal Normal right ventricular size and function Both atria are normal in size There is an incidental finding of an atrial septal aneurysm Trileaflet aortic valve with mild regurgitation Ascending aorta measures 3.47 cm Wall motion Left Ventricle The left ventricle is normal size. The left ventricular systolic function is normal. The left ventric ular ejection fraction is within the normal range. There is normal left ventricular wall thickness. T here is normal LV segmental wall motion. There is no ventricular septal defect visualized. LVEF is 65 %. Right Ventricle The right ventricle is normal size. The right ventricular systolic function is normal. Atria The left atrium size is normal. The right atrium size is normal. Atrial septal aneurysm is present wi thout PFO. Aortic Valve The aortic valve is normal in structure. Aortic valve is trileaflet. There is no aortic valvular sten osis. Mild aortic regurgitation is present. Mitral Valve The mitral valve is normal in structure. No evidence of mitral valve stenosis. There is no mitral lilibeth ve regurgitation noted. Tricuspid Valve The tricuspid valve is normal in structure. There is no tricuspid valve stenosis. Trace tricuspid reg urgitation. Unable to assess PA pressure. Pulmonic Valve The pulmonary valve is normal in structure. There is no pulmonic valvular stenosis. There is no pulmo meme valvular regurgitation. Great Vessels The aortic root is normal in size. The ascending aorta is mildly dilated. Aortic arch is normal in ca liber. IVC is normal in size and collapses >50% with inspiration. Pericardium There is no pericardial effusion. 2D Dimensions IVSD d PLAX 0.83 cm F: 0.6-1.0 Ao Root d 2.88 cm F: 2.7 - 3.3 LVPW d PLAX 0.82 cm F: 0.6 - 1.0 Ao Asc Diam d 3.47 cm F: 2.3 - 3.1 LVID d PLAX 4.82 cm F: 3.8 - 5.2 LVDs 3.06 cm F: 2.2 - 3.5 LV EF Teichholz 66.1 % FS 36.46 % LV EDV (Teich) 108.4 mL LV ESV (Teich) 36.8 mL Stroke Vol Index (Teich) 34.29 M-Mode TAPSE 2.69 cm (M/F) >1.7 Auto EF LV EDV A4C 99.5 mL LV EDV A2C 106.3 mL LV EDV BP 100.7 mL LV ESV A4C 34.6 mL LV ESV A2C 37.7 mL LV ESV BP 36.4 mL LVEF(%) A4C 65.2 % LVEF(%) A2C 64.5 % LVEF(%) BP 63.9 % LV SV A4C 64.9 ml LV SV A2C 68.6 ml LV SV BP 64.3 ml LV CO A4C 5.1 L/min LV CO A2C 5.3 L/min LV CO BP 5.2 L/min HR A4C 78.78 BPM HR A2C 77.92 BPM LV EDV Index (BP) LA Volume LA Length A4C 4.1 cm LA Length A2C 5.0 cm LA Area A4C s 11.42 cm2 LA Area A2C s 14.70 cm2 LA Vol A4C A-L 27.20 mL LA Vol A2C A-L 36.35 mL LA Vol Biplane A-L 35.0 mL LA Vol/BSA A4C A-L LA Vol/BSA A2C A-L LA Vol/BSA BP A-L 16.8 mL/m2 LA Vol A4C MOD 25.8 mL LA Vol A2C MOD 33.8 mL LA Vol BP MOD 32.8 mL RA Volume RA Area A4C 10.0 cm2 RA ESV A4C (A-L) 18.0mL RA Vol/BSA A4C A-L RA Length A4C 4.7 cm RA ESV A4C (MOD) 17.7mL LV Diastology MV E' medial 0.099 (>0.07 m/s) MV E Vmax 0.83 (0.4-1.3 m/s) MV E/E' MED 8.42 (<14) MV A Vmax 1.10 (0.4-1.3 m/s) MV E' lateral 0.144 (>0.1 m/s) E/A Ratio 0.8 MV E/E' LAT 5.80 (<14) MV E' Average 0.121 m/s MV E/E'(average) 6.87 Aortic Valve AoV Vmax 1.93 m/s LVOT Vmax 1.44 m/s AoV Peak Grad 14.9 mmHg LVOT Peak Grad 8.3 mmHg AoV Area (Vmax) 2.35 cm2 LVOT VTI 0.330 m AoV VTI 0.398 m LVOT Mean Grad 4.9 mmHg AoV Mean Maxime. 1.28 m/s LVOT SV 104.00 mL AoV Mean Grad 7.5 mmHg LVOT Diam s 2.00 cm AoV Area (VTI) 2.62 cm2 Velocity Ratio 0.75 Mitral Valve MV DT 213 (160-240 msec) Pulmonary Valve PV Vmax 1.29 (0.5-1.5 m/s) RVOT Vmax 0.73 m/s PV Peak Grad 6.7 mmHg RVOT Peak Gr. 2.1 mmHg PV Mean Maxime 0.89 m/s RVOT VTI 0.132 m PV Mean Grad 3.6 mmHg RVOT Mean Gr. 1.0 mmHg
--- NOTE | 2023-08-02 15:05 | DI.RAD_ITS ---
Exam(s) XR CHEST 2V PA LATERAL EXAM: XR CHEST 2V PA LATERAL CLINICAL HISTORY: evaluate for fluid, exudate,sob,r06.02 TECHNIQUE: 2D digital imaging was performed of the chest. Two images were obtained. PA and lateral views were obtained. COMPARISON: CR,XR XR CHEST 2V PA LATERAL from 01/16/2021 FINDINGS: MEDIASTINUM: Normal. HEART: Normal. PULMONARY VASCULATURE: Normal. LUNGS: Clear. PLEURAL SPACE: No pleural effusion or pneumothorax. BONE:Within normal limits for the patient's age. OTHER FINDINGS:Normal. IMPRESSION: No acute pulmonary findings. DATA REPOSITORY: RADIATION DOSE DELIVERED:
== END ==
PROVIDERS: PCP Student in an Organized Health Care Education/Training Program; Visit Provider Student in an Organized Health Care Education/Training Program
DX: R06.00 Dyspnea, unspecified (principal); R06.02 Shortness of breath
CPT/HCPCS: 71046; 93306

== ENCOUNTER 2023-08-28 01:37 | Outpatient (CLI) | payer OTHER, SELFPAY ==
[2023-08-28 16:13] LABS: Abs Immature Grans 0.01 10^3/uL (0.0-0.06); Absolute Basophil Count 0.04 10^3/uL (0.0-0.2); Absolute Eosinophil Count 0.12 10^3/uL (0.0-0.7); Absolute Lymphocyte Count 1.51 10^3/uL (1.2-3.4); Absolute Monocyte Count 0.55 10^3/uL (0.1-0.8); Basophils % 0.8 %; Eosinophils % 2.3 %; HCT 39.8 % (36.0-46.0); HGB 13.1 g/dL (11.2-15.7); Immature Grans % 0.2 %; Lymphocytes % 29.4 %; MCH 30.8 pg (27.0-33.0); MCHC 32.9 % (32.0-36.0); MCV 94 fL (80-95); MPV 9.8 fL (8.0-11.0); Monocytes % 10.7 %; Neutrophils % 56.6 %; Platelet Count 226 10^3/uL (130-400); RBC 4.25 10^6/uL (3.93-5.22); RDW 12.2 % (11.7-14.6); RDW-SD 41.9 fL; WBC 5.13 10^3/uL (4.4-10.8)
[2023-08-28 16:19] LABS: ESR < 1 mm/hr (0-30)
[2023-08-28 17:03] LABS: Hemoglobin A1C 5.4 % (<5.7)
[2023-08-28 17:14] LABS: Anion Gap 11.1 mmol/L (3-11); BUN 22 mg/dL (7-18); C-Reactive Protein < 0.50 mg/dL (<or=0.5); CO2 24.9 mmol/L (21.0-32.0); CREATININE 1.3 mg/dL (0.55-1.02); Chloride 107 mmol/L (98-107); Estimated GFR 47.96 (mL/min/1.73m2); Glucose 96 mg/dL (74-106); Iron 71 ug/dL (50-170); Potassium 4.1 mmol/L (3.5-5.1); Sodium 143 mmol/L (136-145); Total Iron Binding Capacity 315 ug/dL (250-450); Transferrin Sat 23 % (15-50)
[2023-08-28 17:30] LABS: FREE T4 0.89 ng/dL (0.76-1.46)
[2023-08-28 17:57] LABS: Calculated LDL 111 mg/dL (<100); Cholesterol 212 mg/dL (<200); Ferritin 35 ng/mL (8-252); HDL Cholesterol 76 mg/dL (40-60); Triglyceride 128 mg/dL (<150)
== END 2023-08-28 01:38 | disposition home or self-care (01) ==
LOC: LBO 01:39
PROVIDERS: PCP Student in an Organized Health Care Education/Training Program; Referring Provider Student in an Organized Health Care Education/Training Program; Visit Provider Student in an Organized Health Care Education/Training Program
DX: R73.09 Other abnormal glucose; R79.89 Other specified abnormal findings of blood chemistry; M77.9 Enthesopathy, unspecified; M06.9 Rheumatoid arthritis, unspecified; Z13.220 Encounter for screening for lipoid disorders; Z91.89 Other specified personal risk factors, not elsewhere classified
CPT/HCPCS: 80048; 80061; 85652; 82728; 83036; 83540; 83550; 84439; 84443; 85025; 86140

== ENCOUNTER 2023-09-05 01:46 | Outpatient (CLI) | payer OTHER, SELFPAY ==
[2023-09-05] MEDS: Levalbuterol HFA 15 GM INH 4 PUFF IH (14:01)
[2023-09-05] MEDS: Inhaler, Assist Device 1 EACH MC (14:01)
--- NOTE | 2023-09-23 14:26 | PFT_ITS ---
Date of service: 09/05/23 Time of Service: 12:56 Pulmonary Function Test Result Requesting Provider Mercedes Espinoza Indications: Asthma Interpretation Spirometry: Abnormal FEV1/FVC and moderate decrease in FEV1 Lung Volumes: Normal lung volumes and elevated RV/TLC suggesting air trapping Diffusion Capacity: Normal diffusion Impression Moderate obstructive ventilatory defect w/ significant reversibility to albuter ol. Normal lung volumes but elevated RV/TLC c/w air trapping. Normal diffusion. Flow volume curve suggests obstruction. Clinical Correlation therefore is recommended.
== END 2023-09-05 01:47 | disposition home or self-care (01) ==
LOC: RT 01:46
PROVIDERS: PCP Student in an Organized Health Care Education/Training Program; Visit Provider Student in an Organized Health Care Education/Training Program
DX: R06.09 Other forms of dyspnea (principal); J45.909 Unspecified asthma, uncomplicated
CPT/HCPCS: 00123; 94060; 94726; 94729

== ENCOUNTER 2023-09-12 15:19 | Outpatient (REF) | payer OTHER, SELFPAY ==
[2023-09-13 20:37] LABS: IgE <2 IU/mL (<158)
== END 2023-09-12 15:20 | disposition home or self-care (01) ==
LOC: LBN 15:19
PROVIDERS: PCP Student in an Organized Health Care Education/Training Program; Visit Provider Physician Assistant Surgical
DX: J44.89 Other specified chronic obstructive pulmonary disease (principal)
CPT/HCPCS: 82785

== ENCOUNTER 2023-10-15 03:38 | Outpatient (CLI) | payer OTHER, SELFPAY ==
[2023-10-15 11:47] LABS: Bacteria Negative HPF (Negative); C & S Indicated? C&S Done As Ordered; Casts Negative LPF (Negative); Crystals Negative HPF (Negative); Epithelial Cells Rare HPF (Negative); Mucus Negative (Negative); RBC Negative HPF (0-2); WBC Negative HPF (0-5)
[2023-10-15 12:30] LABS: Anion Gap 9.1 mmol/L (3-11); BUN 16 mg/dL (7-18); CO2 24.9 mmol/L (21.0-32.0); CREATININE 1.1 mg/dL (0.55-1.02); Chloride 104 mmol/L (98-107); Estimated GFR 58.61 (mL/min/1.73m2); Glucose 145 mg/dL (74-106); Sodium 138 mmol/L (136-145); Vitamin D 25 Total 57.4 ng/mL (30-100)
== END 2023-10-15 03:39 | disposition home or self-care (01) ==
LOC: LBO 03:38
PROVIDERS: PCP Student in an Organized Health Care Education/Training Program; Visit Provider Student in an Organized Health Care Education/Training Program
DX: N17.9 Acute kidney failure, unspecified (principal); R82.90 Unspecified abnormal findings in urine; K90.9 Intestinal malabsorption, unspecified
CPT/HCPCS: 80048; 82306; 81015; 87086

== ENCOUNTER 2023-11-13 14:12 | Emergency (ER) | payer OTHER, SELFPAY ==
[2023-11-13 14:13] VITALS: BP 135/85; PULSE 79; RESP 16; TEMP 36.6; O2SAT 98
--- NOTE | 2023-11-13 14:30 | DI.RAD_ITS ---
Exam(s) XR ANKLE RT COMPLETE EXAM: XR ANKLE RT COMPLETE CLINICAL HISTORY: medial mal pain, no known injury. TECHNIQUE: 2D digital imaging was performed. Three views. COMPARISON: CR XR FOOT RT COMPLETE from 12/31/2022 FINDINGS: BONES: No acute fracture is present. No bony destructive lesion is seen. JOINTS: The ankle mortise is normally aligned. SOFT TISSUE: Swelling around medial malleolus. Smoothly marginated density seen dorsal to the [place] vicular joint appears old. Additional of bony density seen adjacent to the lateral mid malleolus mike ears old. IMPRESSION: No acute abnormality. DATA REPOSITORY: RADIATION DOSE DELIVERED:
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
[2023-11-13] MEDS: Diclofenac 1% Gel 100 GM TUBE TP (15:56)
[2023-11-13 16:13] VITALS: BP 130/72; PULSE 70; RESP 16; TEMP 36.6; O2SAT 98
== END 2023-11-13 16:19 | disposition home or self-care (01) ==
PROVIDERS: Emergency Provider Student in an Organized Health Care Education/Training Program; PCP Student in an Organized Health Care Education/Training Program
DX: M25.571 Pain in right ankle and joints of right foot (principal)
CPT/HCPCS: 29515; 99283; 73610

== ENCOUNTER 2023-11-19 01:19 | Outpatient (CLI) | payer OTHER, SELFPAY ==
[2023-11-19] MEDS: Gadoterate meglumine 20 ML VIAL IVP (14:32)
[2023-11-19] MEDS: Normal Saline - Diluent 50 ML VIAL IJ (14:33)
--- NOTE | 2023-11-19 15:15 | DI.MRI_ITS ---
Exam(s) MR ABDOMEN WO/W EXAM: MR ABDOMEN WO/W CLINICAL HISTORY: re-assess renal pancreatic lesions,abnl mri,r93.89 TECHNIQUE: Multiplanar multisequence MRI was performed with both pre and post contrast infused seque nces. Contrast injected sequences were performed following IV injection of 17 cc of Dotarem. COMPARISON: CT CT ABDOMEN PELVIS W from 02/04/2023 MR MR ABDOMEN WO/W from 04/03/2023 FINDINGS: VISUALIZED LUNG BASES: No pleural effusions evident. There is no ascites evident. LIVER: Liver size is normal. No significant focal hepatic lesions nor obvious dilatation of intrahep atic ducts. BILIARY: There is no obvious gallbladder pathology. CBD diameter remains upper normal, unchanged. N o obvious calculi seen within the CBD. PANCREAS: The previously described solitary septated nonenhancing cysticlesion in the body of the contreras creas appears unchanged in size and configuration. It measures 1.0 cm AP by 0.9 cm wide by 0.9 cm cr aniocaudal. There no new additional focal pancreatic findings. Pancreatic duct size remains normal/ unchanged. There are no peripancreatic fluid collections. There is no peripancreatic-retroperitonea l adenopathy. There is no adenopathy in the agustín hepatis. SPLEEN: Spleen is not enlarged and there are no intrasplenic lesions.Splenic and portal veins are pat ent ADRENALS: There are no significant adrenal masses. KIDNEYS: Left kidney unremarkable. The previously described abnormal finding in the medial suprahila r cortex of the right kidney appears unchanged in size and configuration, measuring 1.9 cm AP by 1.5 cm wide by 2.2 cm craniocaudal..No internal enhancement. This is probably a hemorrhagic cyst. There are no other focal findings in the kidneys and there is no hydronephrosis. ABDOMINAL AORTA: Not enlarged and there is no significant para-aortic adenopathy. ANTERIOR ABDOMINAL WALL/GI: There is no evidence of significant anterior abdominal wall hernia in the field of view of this study.Is no evidence of obvious bowel obstruction. OSSEOUS: There are no lytic osseous lesions in the field of view of this study. IMPRESSION: 1. Compared to the prior MRI scan of 04/03/2023 there is stable appearance, signal characteristics, a nd size of the solitary septated cystic lesion in the body of the pancreas and of the probable hemorr hagic cyst in the medial aspect of the right kidney. There are no new additional pancreatic nor kidn ey lesions.. 2. No new significant findings in the liver and gallbladder nor within the spleen, adrenals, and kidn eys. No hydronephrosis. 3. Recommend repeat MRI in 6 months. If at that time things remain stable then will continue with erika ku scanning thereafter DATA REPOSITORY:
== END 2023-11-19 01:39 ==
LOC: DI 01:19
PROVIDERS: PCP Student in an Organized Health Care Education/Training Program; Visit Provider Student in an Organized Health Care Education/Training Program
DX: R93.89 Abnormal findings on diagnostic imaging of other specified body structures (principal)
CPT/HCPCS: 74183

== ENCOUNTER 2023-12-12 02:10 | Outpatient (CLI) | payer OTHER, SELFPAY ==
--- NOTE | 2023-12-12 07:30 | DI.DEXA_ITS ---
Exam(s) XR DEXA BONE DENSITY W/WO LAST EXAM: XR DEXA BONE DENSITY W/WO LAST CLINICAL HISTORY: evaluate bone density,SCREENING FOR OSTEOPOROSIS IN POSTMENOPAUSAL WOMAN,Z7 TECHNIQUE: Routine DEXA evaluation of the lumbar spine, hip, or forearm. COMPARISON: CR XR DEXA BONE DENSITY W/WO LAST from 12/07/2021 FINDINGS: Performed on a [facility] unit. Lateral image: No compression fracture evident. Lumbar Spine total T-score: -1.1. Previous reading in November 2021 was -1.3 Hip total T-score:-1.2. Previous reading in November 2021 was -1.1 Independent reading at the level of the femoral neck yields T-score of -2.2 Forearm total T-score: 0.8 IMPRESSION: Bone mineral density measures in the osteopenia range for the lumbar spine and hip. Fracture risk is moderate. The bone mineral density for the forearm/wrist is in the normal range with lower risk for fracture at this level. Note: Any spine fracture indicates 5x risk for subsequent spine fracture and 2x risk for subsequent h ip fracture. World Health Organization criteria for BMD interpretation classify patients: Normal...... T- Score at or above -1.0 Osteopenic... T- Score between -1.0 and -2.5 Osteoporosis... T-Score at or below -2.5
== END 2023-12-12 02:30 ==
LOC: DI 02:11
PROVIDERS: PCP Student in an Organized Health Care Education/Training Program; Visit Provider Student in an Organized Health Care Education/Training Program
DX: Z78.0 Asymptomatic menopausal state (principal); Z13.820 Encounter for screening for osteoporosis; M85.89 Other specified disorders of bone density and structure, multiple sites
CPT/HCPCS: 77080

== ENCOUNTER 2024-01-07 02:05 | Outpatient (CLI) | payer OTHER, SELFPAY ==
[2024-01-07 15:16] LABS: Anion Gap 11.8 mmol/L (3-11); BUN 13 mg/dL (7-18); CO2 24.2 mmol/L (21.0-32.0); CREATININE 1.1 mg/dL (0.55-1.02); Chloride 110 mmol/L (98-107); Estimated GFR 58.61 (mL/min/1.73m2); Glucose 114 mg/dL (74-106); Potassium 3.6 mmol/L (3.5-5.1); Sodium 146 mmol/L (136-145)
[2024-01-07 22:57] LABS: Lab Add On Test DONE
[2024-01-07 23:18] LABS: Magnesium 1.9 mg/dL (1.8-2.4)
[2024-01-08 21:25] LABS: FREE T4 0.91 ng/dL (0.76-1.46); PHOSPHORUS 3.6 mg/dL (2.6-4.7)
== END 2024-01-07 02:06 | disposition home or self-care (01) ==
LOC: LBO 02:05
PROVIDERS: PCP Student in an Organized Health Care Education/Training Program; Referring Provider Student in an Organized Health Care Education/Training Program; Visit Provider Student in an Organized Health Care Education/Training Program
DX: I10 Essential (primary) hypertension (principal); R73.09 Other abnormal glucose
CPT/HCPCS: 36415; 80048; 83036; 83735; 84100; 84439; 84443

== ENCOUNTER 2024-01-28 14:40 | Outpatient (REF) | payer OTHER, SELFPAY ==
[2024-01-14 17:08] LABS: D-Dimer 355 ng/mlFEU (<500)
== END 2024-01-28 14:41 | disposition home or self-care (01) ==
LOC: LBN 14:40
PROVIDERS: PCP Student in an Organized Health Care Education/Training Program; Visit Provider Physician Assistant Surgical
DX: J44.89 Other specified chronic obstructive pulmonary disease (principal)
CPT/HCPCS: 85379

== ENCOUNTER 2024-03-09 01:30 | Outpatient (CLI) | payer OTHER, SELFPAY ==
--- NOTE | 2024-03-09 07:15 | DI.MAMMO_ITS ---
Exam(s) MAMMO SCREENING EXAM: MAMMO SCREENING CLINICAL HISTORY: screening,z12.39 TECHNIQUE: Mammograms were interpreted according to the usual protocol including computer analysis w [facility] CAD system, tomosynthesis and C-view imaging. COMPARISON: 2015 through 2021 FINDINGS: The breasts are composed of scattered fibroglandular densities, Breast Density category B. No suspicious masses or suspicious microcalcifications are seen. Stable nodule lateral left breast w [facility] biopsy marker in place. Additional biopsy marker seen more posteriorly in the lateral left breas t. No skin thickening or abnormal axillary lymph nodes are seen. There has been no significant change from prior exams. IMPRESSION: BI-RADS Category 2 - Benign Findings Yearly screening mammography is recommended. Breast Density - Category B, scattered fibroglandular densities. A negative radiographic report should not delay biopsy if a dominant or clinically suspicious mass is present. Up to ten percent of cancers are not identified on mammography. A negative report may reinforce clinical impression. Adenosis and dense breasts may obscure an underlying neoplasm. False positive reports average 6 to 10%. Patient will receive a letter notifying them of these results.
== END 2024-03-09 01:50 ==
LOC: DI 01:30
PROVIDERS: PCP Student in an Organized Health Care Education/Training Program; Visit Provider Student in an Organized Health Care Education/Training Program
DX: Z12.31 Encounter for screening mammogram for malignant neoplasm of breast (principal); R92.323 Mammographic fibroglandular density, bilateral breasts; D24.2 Benign neoplasm of left breast
CPT/HCPCS: 77063; 77067

== ENCOUNTER 2024-09-14 01:06 | Outpatient (CLI) | payer OTHER, SELFPAY ==
--- NOTE | 2024-09-14 06:45 | DI.MRI_ITS ---
Exam(s) MR ABDOMEN WO/W EXAM: MR ABDOMEN WO/W CLINICAL HISTORY: eval renal, pancreatic lesions,abd discomfort,r10.84,q45.3 TECHNIQUE: Multiplanar multisequence MRI of the Abdomen was performed. CONTRAST MATERIAL: IV Contrast: 17 mL of Dotarem contrast administered. COMPARISON: CT CT RENAL COLIC WO from 09/05/2021 MR MR LUMBAR SPINE WO from 11/14/[address] ABDOMEN PELVIS W from 02/04/2023 MR MR ABDOMEN WO/W from 04/03/2023 MR MR ABDOMEN WO/W from 11/19/2023 FINDINGS: Lung bases: Unremarkable. Liver: Unremarkable. Pancreas: There are 2 adjacent simple appearing cysts in the mid body of the pancreas. They were measured as 1 lesion on the previous examinations. There has been mild interval increase in size to 12 x 9 millimeters compared with 10 x 9 millimeters. No evidence of enhancement. Gallbladder and Bile Ducts: Unremarkable. Adrenals: Unremarkable. Kidneys: Stable appearance of hyperdense cyst on the mid right kidney since 2021.. Spleen: Unremarkable. Aorta: Unremarkable. Soft Tissues: Unremarkable. Bone: Unremarkable. Lymph Nodes: Unremarkable. Stomach and bowel: Unremarkable. Peritoneal cavity: Unremarkable. No evidence of ascites. IMPRESSION: Mild interval increase previously noted pancreatic cyst which now is visible as two separate adjacent simple cysts. Stable right renal hyperdense cyst. DATA REPOSITORY:
[2024-09-14] MEDS: Gadoterate meglumine 20 ML VIAL 17 ML IVP (08:34)
[2024-09-14] MEDS: Normal Saline - Diluent 50 ML VIAL 25 ML IJ (08:35)
== END 2024-09-14 01:26 ==
LOC: DI 01:07
PROVIDERS: PCP Nurse Practitioner Family; Visit Provider Student in an Organized Health Care Education/Training Program
DX: Q45.3 Other congenital malformations of pancreas and pancreatic duct (principal); R10.84 Generalized abdominal pain
CPT/HCPCS: 74183

== ENCOUNTER 2024-11-03 02:07 | Outpatient (CLI) | payer OTHER, SELFPAY ==
[2024-11-03 15:41] LABS: TSH (W/Ref FT4) 1.32 uIU/mL (0.36-3.74)
== END 2024-11-03 02:08 | disposition home or self-care (01) ==
LOC: LBO 02:07
PROVIDERS: PCP Nurse Practitioner Family; Visit Provider Nurse Practitioner Family
DX: R79.89 Other specified abnormal findings of blood chemistry (principal)
CPT/HCPCS: 36415; 84443

== ENCOUNTER 2025-02-22 16:28 | Outpatient (CLI) | payer OTHER, SELFPAY ==
[2025-02-23 10:45] LABS: Lyme Ab w Rflx to Lyme Confirm Negative (Negative)
[2025-02-24 18:42] LABS: B. miyamotoi PCR Negative (Negative); Babesia divergens/MO-1 Negative (Negative); Ehrlichia muris eauclairensis Negative (Negative)
== END 2025-02-22 16:29 | disposition home or self-care (01) ==
LOC: LBO 16:29
PROVIDERS: PCP Nurse Practitioner Family; Visit Provider Family Medicine
DX: R51.9 Headache, unspecified (principal)
CPT/HCPCS: 36415; 87798; 86618

== ENCOUNTER 2025-02-23 14:30 | Outpatient (CLI) | payer OTHER, SELFPAY ==
[2025-02-23 14:50] LABS: ESR < 1 mm/hr (0-30)
[2025-02-23 15:11] LABS: C-Reactive Protein < 0.50 mg/dL (<=0.50)
== END 2025-02-23 14:31 | disposition home or self-care (01) ==
LOC: LBO 14:31
PROVIDERS: PCP Nurse Practitioner Family; Visit Provider Family Medicine
DX: R51.9 Headache, unspecified (principal)
CPT/HCPCS: 36415; 85652; 86140

== ENCOUNTER 2025-03-08 09:45 | Day surgery (SDC) | payer OTHER, SELFPAY ==
[2025-03-08 10:29] VITALS: BP 122/94; PULSE 73; RESP 16; TEMP 36.2; O2SAT 97
--- NOTE | 2025-03-08 12:41 | ART_PTH ---
PATIENT: Ghada Broussard LOC: [facility] U#:[id number] AGE/SX: 59/F ROOM: RE03/08/[address]: Gail Ashby MD : [id number] BED: DIS: 03/08/2025 SPEC #: [id number] RECD: 03/08/25 13:16 STATUS: NASRA RE #: [id number] TESSA: 03/08/25 12:[address]: Gail Ashby DEPT: Surgical Specimen RECD BY: Michelle Bradshaw ENTERED: 03/08/25 13:17 SP TYPE: Artery OTHR DR: Keyona Cherry APRN Tissues: 1 - ARTERY BIOPSY Procedures: GROSS AND MICRO LEVEL 4 Comments: [id number]
[2025-03-08] MEDS: Lidocaine 1% Pres-Free 30 ML VIAL (12:42)
[2025-03-08 13:07] VITALS: BP 157/87; PULSE 63; RESP 16; TEMP 36.4; O2SAT 97
--- NOTE | 2025-03-08 13:16 | PDOC.DSDIS_ITS ---
Date of service: 03/08/25 Discharge Plan Disposition Patient Disposition: Home Condition: Stable Discharge Details Attending Provider: Gail Ashby Primary Care Provider: Keyona Cherry Home Meds and New Rx's Prescriptions: New hydrocodone-acetaminophen 5-325 mg tablet 1 tab PO Q6H PRNQty: 10 0RF Continued ibuprofen 200 mg capsule 200 mg PO Q6H PRN hydrocortisone 10 mg tablet 25 mg PO TID Patient Comments: Using 5s, 10s .. Rx Instructions: taking 15 mg in the am, 5 at 1030 in the morning and 5 at 430 in the afternoon jwo fludrocortisone 0.1 mg tablet 0.1 mg PO DAILY Patient Comments: Dr. Cantrell [facility] magnesium oxide 400 mg capsule 400 mg PO DAILY cetirizine [Zyrtec] 10 mg tablet 10 mg PO DAILY Qty: 90 3RF Breztri Aerosphere 160-9-4.8 mcg/actuation HFA aerosol inhaler 2 inh inhalation BID Qty: 10.7 12RF albuterol sulfate [ProAir HFA] 90 mcg/actuation HFA aerosol inhaler 2 puff Inhalation Q4H PRN Qty: 3 3RF sumatriptan succinate 100 mg tablet 100 mg PO ONCE Qty: 7 0RF Rx Instructions: may repeat in 2 hours if no relief X1 multivitamin 1 EACH tablet 1 tab PO DAILY cholecalciferol (vitamin D3) [Vitamin D3] 1,000 UNIT capsule 1,000 unit PO DAILY cyanocobalamin (vitamin B-12) [Vitamin B-12] 1,000 mcg tablet extended release 1,000 mcg PO DAILY Kevzara 200 mg/1.14 mL pen injector 200 mg SUBCUT Q2W buspirone 15 mg tablet 15 mg PO BID Qty: 180 3RF Rx Instructions: NO taper per IK levothyroxine 88 mcg tablet See Rx Instructions PO DAILY Rx Instructions: 88 mcg 6 days a week orally daily; gabapentin 300 mg capsule See Rx Instructions PO DAILY Qty: 180 3RF Rx Instructions: 600mg qHS, with 300mg after work prn burning pain orally daily; omeprazole 20 mg capsule,delayed release(DR/EC) 20 mg PO DAILY Qty: 90 3RF mometasone 0.1 % cream See Rx Instructions .ROUTE .COMPLEX Qty: 15 0RF Dose Instruction: APPLY TOPICALLY TO THE AFFECTED AREA DAILY NEEDED FOR ITCHING Rx Instructions: APPLY TOPICALLY TO THE AFFECTED AREA DAILY NEEDED FOR ITCHING calcium citrate 200 mg (950 mg) tablet 400 mg PO BID Discharge Instructions Additional Instructions: Shower 03/09/25. Wash gently over surgical site with soapy hands, rinse, pat dry. Dont peel glue or submerge incision under water (no swimming, but normal showering and getting hair wet like normal is perfectly okay). Ok to use regular shampoo and conditioner. No need to clean the glue with alcohol or other cleaning solutions beyond soap/water/shampoo. Bruising and spot bleeding are normal/expected. I will notify you of biopsy results as soon as they are available. No activity rules. Stand Alone Forms: Martin Godoy (DSU), Portal Information Activity:: Activity as Tolerated Shower/Bathe:: 24 hours Diet:: As Tolerated Discharge Orders Discharge Orders: Discharge Order (Routine); Ordered 03/08/25 Ordered By: Gail Ashby DS: Diagnosis Discharge Diagnosis (1) Headache, new daily persistent (NDPH): Status: Acute (2) PMR (polymyalgia rheumatica): Status: Acute
--- NOTE | 2025-03-08 13:25 | ROE_ITS ---
Operative Note Operative Note PRE-OP DIAGNOSIS: new daily headache, polymyalgia rheumatica PROCEDURE: Left temporal artery biopsy SURGEON: Gail Ashby MEMBER CERTIFICATION MANAGER: Ej Steven Refer to Anesthesia Record ESTIMATED BLOOD LOSS: 5 COMPLICATIONS: None Procedure Description: 59yo F who has polymyalgia rheumatica. She developed severe daily headache that has not been relieved by anything. She responded mildly and temporarily to prednisone. She was referred for temporal artery biopsy given the high risk status and intractable headache. Headache is bilateral but left side is worse than the right so we selected left sided biopsy. We discussed procedure risks, benefits, alternatives and expectations. We discussed decreased diagnostic yield of biopsy after steroid administration. We discussed that ruling out temporal arteritis is crucial so we agreed to proceed with biopsy. Biopsy was done under local anesthesia in the operating room. She was positioned supine with her head turned to the right. The location of the temporal artery was identified by palpation and marked on the skin. The hair was clipped. The s kin was then prepped and draped in the usual sterile fashion. Pulse of the artery after prepping and draping was weak, so ultrasound draped sterilly and used to identify the artery location and path anterior and superior to the zygoma. The skin was marked again and 15 blade used to incise the skin over the artery. Dissection to the artery was done bluntly. The vessel in this area above the temporal fascia was thin and vein-like. Exploration of the area identified small branch veins nearby but no other vessels of note. US was again used to confirm arterial flow in the vessel. Pulsatile flow was noted through the identified vessel on ultrasound, above the temporal fascia. No visible pulsations were seen grossly. The temporal fascia was left intact, but I again explored locally to ensure the pulsatile artery on US was none other than the identified vessel. I spoke to the patient and informed her the less than satisfying exam of the temporal artery. I told her the identified vessel looked like a vein to me, but that I did not see another vessel in the area that represented the arterial pulsations seen on ultrasound. We discussed the option of continuing to search around, proceeding with right sided biopsy, or closing and waiting for biopsy results before deciding on next steps in care. We opted to close. The vessel was isolated and dissected free, and ligated with 3-0 silk ties. A segment was cut and passed off the field as specimen. Hemostasis was assured. The skin was closed with interrupted 4-0 Monocryl suture in subcuticular fashion. The site was washed and dried. Skin glue was applied. All sponge and instrument counts were correct at the end of the case. She tolerated the procedure well and transferred back to preop area in stable condition. No complications. Date of Procedure: 03/08/25
[2025-03-08] MEDS: Ibuprofen 800 MG TAB PO (13:43)
== END 2025-03-08 13:55 | disposition home or self-care (01) ==
PROVIDERS: PCP Nurse Practitioner Family; Visit Provider Surgery
PROC: (CPT 37609; principal; 2025-03-08 11:00)
DX: G44.52 New daily persistent headache (NDPH) (principal); M35.3 Polymyalgia rheumatica
CPT/HCPCS: 37609; 88305